=== PATIENT | female | born 1980 | race Caucasian/White ===

== ENCOUNTER 2020-11-01 16:28 | Emergency (ER) | payer MEDICAID, SELFPAY ==
--- NOTE | ~2020-11-01 | CT_ITS ---
EXAMINATION: CT FACIAL BONES WITH CONTRAST CLINICAL INFORMATION: Left facial swelling and trismus COMPARISON: None TECHNIQUE: 1.5 and thin axial and reformatted 1.5 minutes in sagittal coronal images of facial bones were obtained following IV heart mL of Omnipaque 350. This CT examination was performed using dose optimization techniques as appropriate, variously including the following: *Automated exposure control *Adjustment of mA and/or kV according to patient size (this includes techniques or standardized protocols for targeted exams where dose is matched to indication/reason for exam; i.e. extremities or head) *Use of iterative reconstruction technique DLP: 306 mGy-cm FINDINGS: There is mandibular left second molar periapical abscess extending into the gingival-buccal tissues and into the lower medial masseter muscle. . There is periapical cyst of mandibular left first molar. There is no acute maxillofacial fracture. The pterygoid plates are intact. The zygomatic arches are intact. The lamina papyracea are intact. The orbital rims are intact. There is mild mucoperiosteal thickening of right maxillary sinus. Rest of the paranasal sinuses and mastoid air cells are well-aerated. No air-fluid levels are seen. There is moderate deviation of the nasal septum to the right. The ostiomeatal complexes are clear. The lamina papyracea are intact. The ethmoid roofs are symmetric. The carotid canals are normally covered by bone. All periapical cyst is seen involving the left maxillary last molar tooth. There is significant dental filling producing beam hardening artifacts. The mastoid air cells and visualized middle ear cavities are well-aerated. The orbits are normal. The TMJs are unremarkable. The imaged portions of the brain demonstrate no acute abnormality. CT/CT facial bones w con IMPRESSION: Left periapical abscess second mandibular molar tooth extending into the gingivobuccal tissues and involving the left medial mass effect or muscle. There is a small Ovalle's cyst involving the last mandibular and maxillary. Molar tooth Chronic right maxillary sinus inflammatory changes.
[2020-11-01 16:32] VITALS: BP 157/94; PULSE 121; RESP 20; TEMP 36.9; O2SAT 98; BMI 23.9
[2020-11-01 18:21] VITALS: BP 138/82; PULSE 117; RESP 16; TEMP 36.4; O2SAT 100
--- NOTE | 2020-11-01 18:44 | ED_ITS ---
HPI - Dental/Oral General Chief complaint: Skin/Abscess/Foreign Body Stated complaint: abscess Source: patient Mode of arrival: ambulatory Limitations: language barrier History of Present Illness HPI Narrative: 40-year-old female with past medical history of hypertension, hyperlipidemia, hypothyroidism and anemia presents for a dentist office for severe inflammation to the lower left side of the face related to a dental abscess. The dentist report states that there is rubor, pain, and swelling extending to the left side of face and neck with trismus and limited opening of the mouth to 4-5 mm. Patient stated that this swelling started on Sunday and has gradually increased. She is able to swallow, does not have any throat pain, does not have any difficulty breathing and does not have any pain when moving her head or neck. She denies chest pain or pressure, palpitations, shortness of breath, abdominal pain, abdominal distention, dysuria, hematuria, fevers, chills, nausea, vomiting, diarrhea, constipation, weakness or fatigue. MD Complaint: tooth pain Teeth map: 1. Onset (ago): day(s) Duration: constant Severity: severe Exacerbating factors: chewing Context: history of dental caries and poor dental care Treatment prior to arrival: other (Dental visit) Related Data Home Medications Medication Instructions Recorded Confirmed ascorbic acid (vitamin C) 1 tab PO Q12H 11/01/20 11/01/20 ascorbic acid (vitamin C) [Vitamin 1 tab PO Q12H 11/01/20 11/01/20 C] atorvastatin 1 tab PO DAILY 11/01/20 11/01/20 cholecalciferol (vitamin D3) 2 tab PO DAILY 11/01/20 11/01/20 [Vitamin D3] ferrous sulfate 1 tab PO DAILY 11/01/20 11/01/20 glipizide 1 - 2 tab PO BID 11/01/20 11/01/20 levothyroxine 1 tab PO QAM 11/01/20 11/01/20 losartan 1 tab PO DAILY 11/01/20 11/01/20 metformin 1 tab PO BID 11/01/20 11/01/20 Previous Rx's Medication Instructions Recorded amoxicillin-pot clavulanate 1 tab PO Q12H 14 Days #28 tab 11/02/20 [Augmentin] ibuprofen 600 mg PO Q6H PRN #30 tab 11/02/20 Allergies Allergy/AdvReac Type Severity Reaction Status Date / Time No Known Allergies Allergy Verified 11/01/20 16:43 Review of Systems Review of Systems: Constitutional: No Fever, No Chills ENT/Mouth: No swallowing difficulty, no change in voice, positive dental pain, positive jaw pain, positive facial swelling Eyes: No Eye Pain, No Swelling Cardiovascular: No Chest Pain, No SOB Respiratory: No Cough, No Sputum, No Wheezing, No Smoke Exposure, No Dyspnea Gastrointestinal: No Nausea, No Vomiting, No Diarrhea Genitourinary: No Dysuria Musculoskeletal: No Myalgias Skin: No rash Neuro: No Weakness, No Numbness, No Headache Yes all other systems are reviewed and are negative [facility] Past Medical History Attestation statement: The following information was validated with the patient. Source: old records reviewed Social History Social History Advance Directives: No Advance Directives Information Provided: No Physical Exam Vital Signs: Vital Signs: Last Vital Signs Temp 98.4 F 11/02/20 00:00 Pulse 88 11/02/20 00:00 Resp 16 11/02/20 00:00 BP 140/83 H 11/02/20 00:00 Pulse Ox 98 11/02/20 00:00 Body Mass Index 23.9 Appearance: Alert. Oriented X3. Mild distress. Swelling to the left mandible radiating down to the sternocleidomastoid Eyes: Pupils equal, round and reactive to light. EOMI, sclera nonicteric ENT: Pharynx normal. tongue midline, no swelling, soft palate, pain to palpation on the left mandible. Neck: Normal inspection. Neck supple. No tracheal stridor, trachea midline CVS: Normal heart rate and rhythm. Pulses normal. Respiratory: No respiratory distress. Breath sounds normal. Abdomen: Soft and nontender. Skin: Skin warm and dry. Normal skin color. Normal skin turgor. Extremities: No lower extremity edema. Moves all extremities against resistance, gait while bowels well coordinated Neuro: No motor deficit. No sensory deficit. Cranial nerves 2-12 intact no focal neural deficits Course Course Course Narrative: 40-year-old female with past medical history of hyperlipidemia, hypertension, anemia, hypothyroidism presents with dental abscess from her dentist office. She presents with severe inflammation to the lower left side of the face with rubor dolor extending to the left side the neck with trismus and limited opening to about 4-5 mm. We will order CT scan of facial bones with contrast, start IV clindamycin, CBC Chem 7 and cultures. 9:[address] scan indicates Left periapical abscess second mandibular molar tooth extending into the gingivobuccal tissues and involving the left medial masseter muscle. 9:30 p.m. discussion with hospitalist regarding CT scan findings, hospitalist feels that this patient needs to be transferred as we do not have oral facial or dental surgery here. Discussed with Dr. valderrama and she was at bedside to evaluate patient. 9:40 p.m. discussion with [facility], [facility] does not have an oral facial or dental surgeon, refer to [facility]. 10:13 p.m. discussion with [facility], they will call out to their oral facial surgeon. 10:28 pm discussion with oral facial surgeon at [facility], Dr Shook. plan of care is to give 2nd dose of IV antibiotics, Unasyn is preferred, then have patient follow-up with outpatient oral surgeon. Patient does not have Tato's angina, has very little pain, no tongue swelling, able to swallow without difficulty. No indication of sepsis, CBC within normal limits, white count 9.8, lactic acid 0.9. Discussed with Dr. Gerber. Approximately 30 minutes after Unasyn, patient appears nontoxic, alert oriented x4, answering questions politely and appropriately utilizing Syriac, no focal neural deficits, cranial nerves 2-12 intact, lung sounds clear auscultation, no tracheal stridor, able to manage secretions, no difficulty swallowing. Will send home with p.o. antibiotics, she will follow-up with her dentist who will refer her to oral maxillary surgeon. She does understand that if symptoms persist or she has any difficulty breathing that she must present to the emergency department, preferably [facility] as they have oral facial surgeon. 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 Google translate utilized for discharge instructions. MDM - Dental/Oral MDM Narrative Medical decision making narrative: Abscess, Tato's angina, peritonsillar abscess Differential Diagnosis Differential diagnosis: Likely gingival abscess, dental caries, toothache and dental abscess Medical Records Attestation: I reviewed the patient's medical records. Lab Data Attestation: I reviewed the patient's lab results. Result diagrams: 11/01/20 18:50 11/01/20 18:50 Labs: Lab Results 11/01/20 11/01/20 11/01/20 Range/Units 18:50 18:50 18:50 WBC 9.8 (4.8-10.8) X10*3/uL RBC 3.92 L (4.20-5.50) X10*6/uL Hgb 12.0 (12.0-16.0) g/dl Hct 36.8 L (37-47) % MCV 93.9 (80-98) fL MCH 30.6 (27.0-33.0) pg MCHC 32.6 (31.0-35.0) g/dl RDW 11.9 (11.0-16.0) % Plt Count 186 (160-400) X10*3/uL MPV 13.9 H (9.4-12.3) fL Immature Gran % (Auto) Cancelled Neut % (Auto) Cancelled Lymph % (Auto) Cancelled [place] % (Auto) Cancelled Eos % (Auto) Cancelled Baso % (Auto) Cancelled Lymph # (Auto) Cancelled [place] # (Auto) Cancelled Eos # (Auto) Cancelled Baso # (Auto) Cancelled Abs Immat Gran (auto) Cancelled Absolute Neuts (auto) Cancelled Absolute Nucleated RBC 0.000 (0.0-0.012) X10*3/uL Nucleated RBC % (auto) 0.0 (0.0-0.2) /100WBC Neutrophils % (Manual) 78 H (45-73) % Band Neutrophils % 0 L (3-5) % Lymphocytes % (Manual) 17 L (20-40) % Monocytes % (Manual) 5 (2-11) % Abs Neuts (Manual) 7.6 (2.2-7.9) X10*3/uL Lymphocytes # (Manual) 1.7 (0.6-4.8) X10*3/uL Monocytes # (Manual) 0.5 (0.0-1.2) X10*3/uL Hypersegmented Neuts PRESENT Platelet Estimate NORMAL (NORMAL) Plt Morphology Comment NORM RBC Morphology NOTED [place] Cells 2+ Schistocytes 1+ Sodium 137 (135-145) mmol/L Potassium 4.3 (3.3-5.1) mmol/L Chloride 102 (96-108) mmol/L Carbon Dioxide 26 (22-29) mmol/L Anion Gap 13 (12-20) BUN 16 (9-16) mg/dL Creatinine 0.79 (0.5-1.4) mg/dL Estim Creat Clear Calc 76.7 Estimated GFR > 60 Random Glucose 129 H (60-115) mg/dL Lactic Acid 0.9 (0.5-2.0) mmol/L Calcium 9.4 (8.4-10.2) mg/dL Urine Test (NEGATIVE) 11/01/20 Range/Units 18:50 WBC (4.8-10.8) X10*3/uL RBC (4.20-5.50) X10*6/uL Hgb (12.0-16.0) g/dl Hct (37-47) % MCV (80-98) fL MCH (27.0-33.0) pg MCHC (31.0-35.0) g/dl RDW (11.0-16.0) % Plt Count (160-400) X10*3/uL MPV (9.4-12.3) fL Immature Gran % (Auto) Neut % (Auto) Lymph % (Auto) [place] % (Auto) Eos % (Auto) Baso % (Auto) Lymph # (Auto) [place] # (Auto) Eos # (Auto) Baso # (Auto) Abs Immat Gran (auto) Absolute Neuts (auto) Absolute Nucleated RBC (0.0-0.012) X10*3/uL Nucleated RBC % (auto) (0.0-0.2) /100WBC Neutrophils % (Manual) (45-73) % Band Neutrophils % (3-5) % Lymphocytes % (Manual) (20-40) % Monocytes % (Manual) (2-11) % Abs Neuts (Manual) (2.2-7.9) X10*3/uL Lymphocytes # (Manual) (0.6-4.8) X10*3/uL Monocytes # (Manual) (0.0-1.2) X10*3/uL Hypersegmented Neuts Platelet Estimate (NORMAL) Plt Morphology Comment RBC Morphology [place] Cells Schistocytes Sodium (135-145) mmol/L Potassium (3.3-5.1) mmol/L Chloride (96-108) mmol/L Carbon Dioxide (22-29) mmol/L Anion Gap (12-20) BUN (9-16) mg/dL Creatinine (0.5-1.4) mg/dL Estim Creat Clear Calc Estimated GFR Random Glucose (60-115) mg/dL Lactic Acid (0.5-2.0) mmol/L Calcium (8.4-10.2) mg/dL Urine Test NEGATIVE (NEGATIVE) Imaging Data CT facial bones: Attestation: I personally reviewed and interpreted this imaging study as follows: Radiologist's impression: EXAMINATION: CT FACIAL BONES WITH CONTRAST CLINICAL INFORMATION: Left facial swelling and trismus COMPARISON: None TECHNIQUE: 1.5 and thin axial and reformatted 1.5 minutes in sagittal coronal images of facial bones were obtained following IV heart mL of Omnipaque 350. This CT examination was performed using dose optimization techniques as appropriate, variously including the following: *Automated exposure control *Adjustment of mA and/or kV according to patient size (this includes techniques or standardized protocols for targeted exams where dose is matched to indication/reason for exam; i.e. extremities or head) *Use of iterative reconstruction technique DLP: 306 mGy-cm FINDINGS: There is mandibular left second molar periapical abscess extending into the gingival-buccal tissues and into the lower medial masseter muscle. . There is periapical cyst of mandibular left first molar. There is no acute maxillofacial fracture. The pterygoid plates are intact. The zygomatic arches are intact. The lamina papyracea are intact. The orbital rims are intact. There is mild mucoperiosteal thickening of right maxillary sinus. Rest of the paranasal sinuses and mastoid air cells are well-aerated. No air-fluid levels are seen. There is moderate deviation of the nasal septum to the right. The ostiomeatal complexes are clear. The lamina papyracea are intact. The ethmoid roofs are symmetric. The carotid canals are normally covered by bone. All periapical cyst is seen involving the left maxillary last molar tooth. There is significant dental filling producing beam hardening artifacts. The mastoid air cells and visualized middle ear cavities are well-aerated. The orbits are normal. The TMJs are unremarkable. The imaged portions of the brain demonstrate no acute abnormality. CT/CT facial bones w con IMPRESSION: Left periapical abscess second mandibular molar tooth extending into the gingivobuccal tissues and involving the left medial mass effect or muscle. There is a small Ovalle's cyst involving the last mandibular and maxillary. Molar tooth Chronic right maxillary sinus inflammatory changes. Critical Care Time Critical Care Time Critical Care Time: Yes Total Critical Care Time: 120 Attestation: I have personally provided critical care time exclusive of time spent on separately billable procedures. Time includes review of laboratory data, radiology results, discussion with consultants, and monitoring for potential decompensation. Interventions were performed as documented. Discharge Plan Discharge Clinical Impression: Abscess, dental Abscess of skin or subcutaneous tissue Qualifiers: Site of cutaneous abscess: neck Qualified Code(s): L02.11 - Cutaneous abscess of neck Patient Disposition: Home, Self-Care Instructions: Dental Abscess (ED) Additional Instructions: Usted fue evaluado en el departamento de emergencias para martinez inflamaci?n grave en la parte inferior izquierda de la diana relacionada con un absceso dental. Levin dentista lo remite al departamento de emergencias. Le dimos clindamicina intravenosa y IV Unasyn por esta infecci?n. Debe continuar tomando antibi?ticos en casa, prescrito Augmentin 1 comprimido cada 12 horas april los pr?ximos 14 d?as. Debes hacer un seguimiento con levni dentista ma?pepe. Debes lisa a un ciru gudelia oral. Discutimos levin bob con un cirujano facial oral en [facility] en [facility]. La direcci?n es [address] [facility]. Si tiene alg?n evento relacionado april toda la noche, no puede tragar, tiene dificultad para respirar, tiene fiebres o escalofr?os, llame al 911 y busque atenci?n m?dica emergente. El cirujano con el que hablamos en [facility] fue el Por favor, tome Tylenol y Motrin seg?n sea necesario para el manejo del dolor. Jonathan por elegir casey departamento de emergencias para levin evaluaci?n. Por favor, yasmin un seguimiento con el m?dico de atenci?n primaria seg?n sea necesario. Regrese al servicio de emergencias para cualquier s?ntoma nuevo, preocupante o que empeore. You were evaluated in the emergency department for severe inflammation to the left lower side of the face related to a dental abscess. Your dentist refer you to the emergency department. We gave you IV clindamycin and IV Unasyn for this infection. You must continue to take antibiotics at home, prescribed Augmentin 1 tablet every 12 hours for the next 14 days. You must follow-up with her dentist tomorrow. You must see an oral surgeon. We discussed your case with an oral facial surgeon at [facility] in [facility]. The address is [address] [place] [address]. If you have any concerning events throughout the evening, you are unable to swallow, have difficulty breathing, have fevers or chills please call 911 and seek emergent medical attention. The surgeon we spoke to at [facility] was Dr. Shook. Please take Tylenol and Motrin as needed for pain management. Thank you for choosing this emergency department for evaluation. Please follow-up with primary care physician as needed. Return to the emergency department for any new, concerning, or worsening symptoms. Prescriptions: New amoxicillin-pot clavulanate [Augmentin] 875-125 mg tablet 1 tab PO Q12H 14 Days Qty: 28 RF: 0 ibuprofen 600 mg tablet 600 mg PO Q6H PRN (Reason: pain) Qty: 30 RF: 0 No Action atorvastatin 10 mg tablet 1 tab PO DAILY RF: 0 ascorbic acid (vitamin C) [Vitamin C] 250 mg tablet 1 tab PO Q12H RF: 0 ascorbic acid (vitamin C) 250 mg tablet 1 tab PO Q12H RF: 0 levothyroxine 50 mcg tablet 1 tab PO QAM RF: 0 ferrous sulfate 325 mg (65 mg iron) tablet 1 tab PO DAILY RF: 0 losartan 100 mg tablet 1 tab PO DAILY RF: 0 cholecalciferol (vitamin D3) [Vitamin D3] 10 mcg (400 unit) tablet 2 tab PO DAILY RF: 0 glipizide 5 mg tablet 1 - 2 tab PO BID RF: 0 metformin 750 mg tablet extended release 24 hr 1 tab PO BID RF: 0
[2020-11-01 19:04] LABS: Mean Corpuscular Volume 93.9 fL (80-98); Red Cell Distribution Width 11.9 % (11.0-16.0)
[2020-11-01 19:06] LABS: Hematocrit 36.8 % (37-47); Mean Corpuscular HGB Conc 32.6 g/dl (31.0-35.0); Mean Corpuscular Hemoglobin 30.6 pg (27.0-33.0); Mean Platelet Volume 13.9 fL (9.4-12.3); Red Blood Count 3.92 X10*6/uL (4.20-5.50)
[2020-11-01 19:18] LABS: PLT ABN DIST 1; WBC ABN SCTR FOR CBC 1
[2020-11-01 19:30] LABS: Lactic Acid 0.9 mmol/L (0.5-2.0)
[2020-11-01 19:33] LABS: Anion Gap 13 (12-20); Blood Urea Nitrogen 16 mg/dL (9-16); Calcium 9.4 mg/dL (8.4-10.2); Carbon Dioxide 26 mmol/L (22-29); Chloride 102 mmol/L (96-108); Creatinine Clr Calc Pharmacy 76.7; Estimated Glomerular Filt Rate > 60; Glucose Random 129 mg/dL (60-115); Potassium 4.3 mmol/L (3.3-5.1); Sodium 137 mmol/L (135-145)
[2020-11-01 19:36] LABS: Band Neutrophils Percent 0 % (3-5); Lymphocytes Percent Manual 17 % (20-40); Monocytes Percent Manual 5 % (2-11); Neutrophils Percent Manual 78 % (45-73)
[2020-11-01] MEDS: Ketorolac Tromethamine 30 MG/ML VIAL IVPUSH (19:41)
[2020-11-01 19:42] LABS: Platelet Estimate NORMAL (NORMAL)
[2020-11-01] MEDS: Clindamycin Phosphate/D5W 600 MG/50 ML PIGGYBACK 100 MG IV (19:42)
[2020-11-01 19:43] LABS: Hypersegmented Neutrophils PRESENT
[2020-11-01] MEDS: 0.9 % Sodium Chloride 1,000 ML 999 ML IVCONT (19:43)
[2020-11-01 19:44] LABS: RBC Morphology NOTED
[2020-11-01 19:53] LABS: Burr Cells 2+
[2020-11-01 19:54] LABS: Platelet Morphology Comment NORM; Schistocytes 1+
[2020-11-01 19:57] LABS: Lymphocytes Absolute Manual 1.7 X10*3/uL (0.6-4.8); Monocytes Absolute Manual 0.5 X10*3/uL (0.0-1.2); Neutrophils Absolute Manual 7.6 X10*3/uL (2.2-7.9); Platelet Count 186 X10*3/uL (160-400); White Blood Count 9.8 X10*3/uL (4.8-10.8)
[2020-11-01 20:06] LABS: UPreg QC Valid YES; Urine Pregnancy NEGATIVE (NEGATIVE)
[2020-11-01 21:31] VITALS: BP 144/78; PULSE 93; RESP 16; TEMP 36.6; O2SAT 99
--- NOTE | 2020-11-01 22:04 | PC.NURSE ---
STRAP MACHINE OPERATOR AUTOMATIC NINO IN TO TALK WITH PATIENT ABOUT TRANSFERING HER TO [facility] FOR OMF. PT HAS DENTAL ABSCESS THAT EXTENDS INTO MUSCLE. AIR WAY PATENT. NO LUDWIGS ANGINA. PT AGREEABLE.
[2020-11-01] MEDS: Ampicillin Sodium/Sulbactam Na 3 GM in 0.9 % Sodium Chloride 100 ML IV (23:27)
[2020-11-02] VITALS: BP 140/83; PULSE 88; RESP 16; TEMP 36.9; O2SAT 98
== END 2020-11-02 01:05 | disposition home or self-care (01) ==
PROVIDERS: Nurse Practitioner Family; Emergency Provider Emergency Medicine; PCP Nurse Practitioner Family
DX: K04.6 Periapical abscess with sinus (principal); L02.11 Cutaneous abscess of neck; I10 Essential (primary) hypertension; E78.5 Hyperlipidemia, unspecified; E11.9 Type 2 diabetes mellitus without complications; Z79.899 Other long term (current) drug therapy; Z79.84 Long term (current) use of oral hypoglycemic drugs
CPT/HCPCS: 36415; 70487; 80048; 81025; 83605; 85007; 85027; 87040; 96361; 96365; 96375; 99284; 99291; 99292; J0295; J1885; Q9967

== ENCOUNTER 2020-12-20 14:04 | Outpatient (REF) | payer MEDICAID, SELFPAY | END 2020-12-20 14:05 | disposition home or self-care (01) | LOC: HO.LAB 14:04 | PROVIDERS: Visit Provider Internal Medicine | DX: Z20.822 Contact with and (suspected) exposure to COVID-19 (principal) | CPT/HCPCS: C9803; U0003; U0005 ==

== ENCOUNTER 2021-04-22 09:31 | Outpatient (REF) | payer MEDICAID, SELFPAY ==
[2021-04-22 10:06] LABS: COVID-19 Test Negative (Negative)
== END 2021-04-22 09:32 | disposition home or self-care (01) ==
LOC: HO.LAB 09:31
PROVIDERS: Visit Provider Internal Medicine
DX: Z20.822 Contact with and (suspected) exposure to COVID-19 (principal)
CPT/HCPCS: 36415; 87635; C9803

== ENCOUNTER 2021-08-31 11:07 | Outpatient (REF) | payer MEDICAID, SELFPAY ==
[2021-08-31 12:19] LABS: Binax Now Covid-19 Ag Negative (Negative)
[2021-08-31 12:20] LABS: Binax Internal Control QC Valid
== END 2021-08-31 11:08 | disposition home or self-care (01) ==
LOC: HO.LAB 11:07
PROVIDERS: Visit Provider Internal Medicine
DX: Z20.822 Contact with and (suspected) exposure to COVID-19 (principal)
CPT/HCPCS: C9803

== ENCOUNTER 2022-12-27 08:42 | Outpatient (REF) | payer MEDICAID, SELFPAY ==
--- NOTE | ~2022-12-27 | MM_ITS ---
EXAMINATION: MM SCREENING DIGITAL BREAST TOMOSYNTHESIS, BILATERAL CLINICAL INFORMATION: Screening. Asymptomatic. No prior breast imaging. Age 32. No known family history breast cancer. The lifetime risk of breast cancer based on the Tyrer-Cuzick Model is 7%. COMPARISON: None (current study represents initial baseline exam). TECHNIQUE: Digital breast tomosynthesis is performed in both the craniocaudal and mediolateral oblique views along with computer-aided detection (CAD). Synthesized 2D images are generated from the tomosynthesis. FINDINGS: The breasts are heterogeneously dense, which may obscure small masses (ACR BI-RADS breast composition Category c). The left breast has a 2.2 cm smooth circumscribed mass with partly obscured margins mid upper outer quadrant, possibly a cyst. Patient will be recalled for targeted ultrasound. The remainder of the breasts show no significant mass or architectural abnormality or abnormal calcifications. The axilla and skin contours are unremarkable. MM/MM tomosynthesis screening BI IMPRESSION: Left: -Smooth mass 2.2 cm mid upper outer quadrant, possibly a cyst. Right: -No mammographic evidence of malignancy. ASSESSMENT: BI-RADS 0: Incomplete - Need Additional Imaging Evaluation RECOMMENDATION: 1. Targeted ultrasound left breast. 2. Radiology department staff will contact the patient for additional imaging. This patient's information was entered into a reminder system with a target due date for their next mammogram.
== END 2022-12-27 08:43 | disposition home or self-care (01) ==
LOC: HO.MAMMO 08:42
PROVIDERS: PCP Nurse Practitioner; Visit Provider Advanced Practice Midwife
DX: Z12.31 Encounter for screening mammogram for malignant neoplasm of breast (principal)
CPT/HCPCS: 77063; 77067

== ENCOUNTER 2023-01-02 10:50 | Outpatient (REF) | payer MEDICAID, SELFPAY ==
--- NOTE | ~2023-01-02 | US_ITS ---
EXAMINATION: US DIAGNOSTIC ULTRASOUND BREAST, LEFT CLINICAL INFORMATION: Recall from baseline screening for 2.2 cm circumscribed mass with partly obscured margins mid upper outer left breast. TC score 7%. COMPARISON: Baseline mammography 12/27/2022. TECHNIQUE: Ultrasound left breast is performed using grayscale imaging and color Doppler without and with harmonics. The area for recall is evaluated. In addition at time of imaging, patient notes palpable areas lower inner left breast which are also interrogated with ultrasound. FINDINGS: The area for recall demonstrates a heterogeneous solid smooth 2 cm mass 2:00 position 6 cm from nipple. There are some scattered internal color flow vascularity. Statistically, this most likely represents a fibroadenoma. Additional imaging lower inner left breast in area of patient's palpable concern shows no ultrasound correlate for recent mammographic correlate. Results are discussed with the patient at time of visit, using an range examiner. Ultrasound guided needle biopsy is suggested to confirm fibroadenoma. Patient is in agreement. Results and recommendation called to medical technologist generalist (Mague) for Dr. Meehan on 01/02/2023. US/US breast LT limited IMPRESSION: -Solid mass upper outer left breast 2 cm, likely fibroadenoma. ASSESSMENT: BI-RADS 4: Suspicious (subcategory 4A: Low suspicion for malignancy) RECOMMENDATION: Ultrasound-guided core biopsy left breast mass. This patient's information was entered into a reminder system with a target due date for their next mammogram.
== END 2023-01-02 10:51 | disposition home or self-care (01) ==
LOC: HO.MAMMO 10:50
PROVIDERS: Visit Provider Advanced Practice Midwife
DX: N63.21 Unspecified lump in the left breast, upper outer quadrant (principal)
CPT/HCPCS: 76642

== ENCOUNTER 2023-01-04 09:03 | Outpatient (REF) | payer MEDICAID, SELFPAY ==
--- NOTE | ~2023-01-04 | MM_ITS ---
EXAMINATION: ULTRASOUND GUIDED CORE BIOPSY BREAST, LEFT POST PROCEDURE DIGITAL MAMMOGRAM, LEFT CLINICAL INFORMATION: Circumscribed 2 cm mass mid upper outer left breast noted at baseline exam, likely fibroadenoma. COMPARISON: Mammography 12/27/2022, targeted left breast ultrasound 01/02/2023. FINDINGS: Proper informed consent is obtained from the patient after discussion of the procedure, potential risks and complications, and alternatives. Patient was given an opportunity for questions. The patient appeared to understand. The patient consented to the procedure and signed the consent form. Hospital provided chief unit forester assisted for the consent and throughout the procedure. GUIDANCE: Ultrasound-guided; aseptic technique. LESION: Solid mass mid upper outer left breast, 2 cm, likely fibroadenoma. APPROACH: Lateral medial. ANESTHESIA: 16 mL 1% lidocaine. DERMATOTOMY: Single skin robert dermatotomy performed. NEEDLE: 14-gauge Achieve core biopsy device with 13.5-gauge co-axial guide needle. CORES: 5. CLIP: HydroMARK; shape: open coil. POST PROCEDURE UNILATERAL DIGITAL MAMMOGRAM: The post biopsy mammogram is performed in separate room using separate digital mammography equipment from the biopsy procedure. CC and ML views are obtained. The breasts are heterogeneously dense, which may obscure small masses (breast composition category: c). The clip marker is in position, overlying the mass on both views. No gross hematoma. The patient tolerated the procedure well. No immediate complications. Home instructions reviewed with the patient. Final pathology results are pending. MM/MM diagnostic mammo unilat LT IMPRESSION: 1. Status post ultrasound-guided core biopsy left breast. 2. Clip placed: HydroMARK; shape: open coil. 3. Pathology pending. An addendum report will be issued.
[2023-01-04] MEDS: Lidocaine HCl 1 % 20 ML VIAL 9 ML SUBCUT (11:45)
[2023-01-04] MEDS: Sodium Bicarbonate 8.4% 50 MEQ/50 ML VIAL SUBCUT (11:46)
== END 2023-01-04 09:04 | disposition home or self-care (01) ==
LOC: HO.MAMMO 09:03
PROVIDERS: PCP Registered Nurse; Visit Provider Surgery
DX: N63.21 Unspecified lump in the left breast, upper outer quadrant (principal); Z79.899 Other long term (current) drug therapy
CPT/HCPCS: 19083; 77062; 77065; 88305; 99202; A4648

== ENCOUNTER → 2023-01-10 10:17 | Outpatient (BNVA) | payer MEDICAID, SELFPAY | PROVIDERS: PCP Registered Nurse; Referring Provider Registered Nurse; Visit Provider Surgery | DX: N63.20 Unspecified lump in the left breast, unspecified quadrant (principal); D24.2 Benign neoplasm of left breast | CPT/HCPCS: 99212 ==

== ENCOUNTER 2023-07-18 15:05 | Outpatient (REF) | payer MEDICAID, SELFPAY ==
[2023-07-18 16:50] LABS: Anion Gap 13 (12-20); Blood Urea Nitrogen 13 mg/dL (9-16); Calcium 10.2 mg/dL (8.4-10.2); Carbon Dioxide 26 mmol/L (22-29); Chloride 100 mmol/L (96-108); Estimated Glomerular Filt Rate > 60; Glucose Random 253 mg/dL (60-115); Potassium 3.8 mmol/L (3.3-5.1); Sodium 135 mmol/L (135-145)
[2023-07-18 17:01] LABS: TSH reflex Free T4 1.57 uIU/mL (0.32-4.0)
== END 2023-07-18 15:06 | disposition home or self-care (01) ==
LOC: HO.HHCL 15:05
PROVIDERS: Visit Provider Internal Medicine Geriatric Medicine
DX: I10 Essential (primary) hypertension (principal); R60.0 Localized edema; F41.8 Other specified anxiety disorders; E11.69 Type 2 diabetes mellitus with other specified complication
CPT/HCPCS: 36415; 80048; 84443

== ENCOUNTER 2024-01-02 08:37 | Outpatient (REF) | payer MEDICAID, SELFPAY ==
--- NOTE | ~2024-01-02 | MM_ITS ---
EXAMINATION: MM SCREENING DIGITAL BREAST TOMOSYNTHESIS, BILATERAL CLINICAL INFORMATION: Screening. Asymptomatic. COMPARISON: Mammography: This study is compared with prior exams dating back to 2022. TECHNIQUE: Digital breast tomosynthesis is performed in both the craniocaudal and mediolateral oblique views along with computer-aided detection (CAD). Synthesized 2D images are generated from the tomosynthesis. FINDINGS: The breasts are heterogeneously dense, which may obscure small masses (ACR BI-RADS breast composition Category c). There are no significant masses, abnormal calcifications, or other abnormalities. There is a tissue marker in the left breast from prior benign percutaneous biopsy. It is associated with a mammographically benign mass. There are coarse, benign calcifications in the medial aspect of the right breast. Few benign calcifications are present in the medial aspect of the right breast. MM/MM tomosynthesis screening BI IMPRESSION: No mammographic evidence of malignancy. ASSESSMENT: BI-RADS BI-RADS 2 - Benign Findings RECOMMENDATION: Routine annual mammography screening. 1 year F/U This examination should not preclude the clinical evaluation of a suspicious palpable abnormality. This patient's information was entered into a reminder system with a target due date for their next mammogram.
== END 2024-01-02 08:38 | disposition home or self-care (01) ==
LOC: HO.MAMMO 08:37
PROVIDERS: PCP Internal Medicine; Visit Provider Nurse Practitioner
DX: Z12.31 Encounter for screening mammogram for malignant neoplasm of breast (principal)
CPT/HCPCS: 77063; 77067

== ENCOUNTER → 2024-01-02 09:00 | Outpatient (BNV) | payer MEDICAID, SELFPAY | PROVIDERS: PCP Internal Medicine; Visit Provider Radiology Diagnostic Radiology | DX: Z12.31 Encounter for screening mammogram for malignant neoplasm of breast (principal) | CPT/HCPCS: 77063; 77067 ==

== ENCOUNTER 2024-03-14 08:25 | Outpatient (REF) | payer MEDICAID, SELFPAY ==
[2024-03-14 11:17] LABS: MANUAL DIFF FLAG NO
[2024-03-14 11:38] LABS: Basophils Percent Auto 0.5 % (0-2); Eosinophils Percent Auto 0.5 % (0-4); Hematocrit 38.2 % (37.0-47.0); Hemoglobin 12.6 g/dl (12.0-16.0); Imm Gran Abs Auto 0.02 X10*3/uL (0.00-0.03); Imm Gran Pct Auto 0.3 % (0.0-0.4); Lymphocytes Absolute Auto 1.3 X10*3/uL (1.2-4.9); Lymphocytes Percent Auto 22.7 % (20-40); Mean Corpuscular Hemoglobin 30.7 pg (27.0-33.0); Mean Corpuscular Volume 92.9 fL (80.0-98.0); Mean Platelet Volume 13.5 fL (9.4-12.3); Monocytes Absolute Auto 0.4 X10*3/uL (0.1-1.2); Monocytes Percent Auto 6.1 % (2-11); Neutrophils Absolute Auto 4.1 x10*3/uL (2.0-8.3); Neutrophils Percent Auto 69.9 % (45-73); Platelet Count 169 X10*3/uL (160-400); Red Blood Count 4.11 X10*6/uL (4.20-5.50); Red Cell Distribution Width 11.9 % (11.0-16.0); White Blood Count 5.9 X10*3/uL (4.8-10.8)
[2024-03-14 12:07] LABS: Alanine Aminotransferase 16 U/L (0-31); Albumin Level 4.1 g/dL (3.5-5.0); Alkaline Phosphatase 54 U/L (39-117); Anion Gap 13 (12-20); Aspartate Amino Transferase 16 U/L (5-31); Bilirubin Direct < 0.2 mg/dL (0.0-0.5); Bilirubin Total 0.2 mg/dL (0.0-1.0); Blood Urea Nitrogen 12 mg/dL (9-16); Calcium 9.6 mg/dL (8.4-10.2); Carbon Dioxide 23 mmol/L (22-29); Chloride 105 mmol/L (96-108); Cholesterol 146 mg/dL (<200); Estimated Glomerular Filt Rate > 60; Glucose Random 112 mg/dL (60-115); HDL Cholesterol 51 mg/dL (>40); LDL Cholesterol Calculated 86 mg/dL (<100); Sodium 137 mmol/L (135-145); Triglycerides 49 mg/dL (<150)
[2024-03-14 12:22] LABS: ~HepC Num1 0.36 S/CO (0.00-0.79); ~Hepatitis C Antibody Nonreactive (Nonreactive)
[2024-03-14 12:25] LABS: TSH reflex Free T4 2.65 uIU/mL (0.32-4.0)
[2024-03-18 18:47] LABS: HIV RNA PCR Qn Copies Not Detected Copies/mL; HIV RNA PCR Qn Log Copies Not Detected Log cps/mL
== END 2024-03-14 08:26 | disposition home or self-care (01) ==
LOC: HO.HHCL 08:25
PROVIDERS: Internal Medicine Geriatric Medicine; Visit Provider Internal Medicine
DX: I10 Essential (primary) hypertension (principal); E11.69 Type 2 diabetes mellitus with other specified complication; R00.0 Tachycardia, unspecified; F41.8 Other specified anxiety disorders
CPT/HCPCS: 36415; 80048; 80061; 80076; 84443; 85025; 86803; 87536; 87900

== ENCOUNTER 2024-12-31 10:19 | Outpatient (REF) | payer MEDICAID, SELFPAY ==
--- NOTE | ~2024-12-31 | XR_ITS ---
EXAMINATION: XR THUMB, RIGHT CLINICAL INFORMATION: R thumb pain, decreased ROM x 3 days COMPARISON: None available. TECHNIQUE: Three views of the right thumb. FINDINGS: The bones and soft tissues are normal. No fracture. Alignment is anatomic. Joint spaces are maintained. Of incidental note, there are suspected periarticular erosions in the third digit DIP joint, and fifth digit PIP joint. XR/XR finger RT min 2V IMPRESSION: 1. Normal abdominal radiographs. 2. Suspected periarticular erosions in the third digit DIP joint, and fifth digit PIP joint. This may suggest inflammatory arthropathy. Electronically signed by: Juanpablo Brown MD 12/31/2024 11:08 AM EDT
--- OUTSIDE RECORDS SUMMARY | 2024-12-31 11:19 | XMS_ITS | Encounter Summary ---
Author Organization [employer] Address [address] [place] [address] Care Team Providers Care Central Sterile Technician Name Role Phone Kristin Zavaleta MD Primary Care Provide r Marisol Helton PharmD Unavailable [phone] Encounter Details Date Type Department Care Team (Latest Contact Info) Description 12/26/2024 Travel Social History Tobacco Use Types Packs/Day Years Used Date Smoking Tobacco: Never Passive Smoke Exposure: Never Smokeless Tobacco: Never Housing Stability Answer Date Recorded What is your housing situation today? I have brenden herrera 03/14/[address] you li ve. Do you have problems with any of the following? None of the above 03/14/2024 Food Insecurity Answer Date Recorded Within the past 12 months, y ou worried that your food would run out before you got money to buy more: Sometimes True 2023 Within the past 12 months,th e food you bought just didn't last and you didn't have enough money to get more: Sometimes True 03/14/2024 Transportation Answer Date Recorded In the past 12 months, has l ack of transportation kept you from medical appts, meetings, work or from getting things needed for daily living? No 03/14/2024 Utilities Answer Date Recorded In the past 12 months, has t he electric, gas, oil or water company threatened to shut off services in your home? No 03/14/2024 Internet Access Answer Date Recorded Internet Access Q1 Yes 04/21/2024 Internet Access Q2 Not on file 04/21/2024 Comments No Sex and Gender Information Value Date Recorded Sex Assigned at Female 06/19/2022 10:36 AM EDT Legal Sex Female 10:36 AM EDT Gender Identity Female 06/19/2022 10:36 AM EDT Sexual Orientation Straight 06/19/2022 10 :36 AM EDT documented as of this encounter Plan of Treatment Upcoming Encounters Date Type Department Care Team (Late st Contact Info) Description 01/23/2025 9:00 AM EDT Medication Management [facility] [address] [place] [phone] Piers-Amy Rondonsa, PharmD [address] [place] [phone] 02/04/2025 10:30 AM EDT Office Visit [facility] [address] [place] [phone] Kristin Zavaleta MD [address] [place] [phone] documented as of this encounter Goals Goal Patient Goal Type Associated Problems Recent Progress Patient-Stated? Author Record your blood pressure once per day Blood Pressure No Piers-Gambl e, Marisol, PharmD Blood Pressure < 140/90 Blood Pressure 140/89(2024 9:29 AM EDT) No Piers-Gambl e, Marisol, PharmD Take your medication every day Lifestyle No Piers-Gambl e, Marisol, PharmD Hemoglobin A1c < 7 Result Component 8(12/26/2024 9:18 AM EDT) No Piers-Gambl e, Marisol, PharmD documented as of this encounter Visit Diagnoses Not on filedocumented in this encounter Care Teams Central Sterile Technician Relationship Specialty Start Date End Date Kristin Zavaleta MD [address] [place] [address] [phone] PCP - General Internal Medicine 09/24/23 Geremiass-Amy Rondonsa, PharmD [address] [place] [address] [phone] Pharmacist Internal Medicine 03/03/24 documented as of this encounter
--- OUTSIDE RECORDS SUMMARY | 2024-12-31 11:19 | XMS_ITS | Encounter Summary ---
Author Organization [employer] Address [address] [place] [address] Care Team Providers Care Play Reader Name Role Phone Kristin Zavaleta MD Primary Care Provide r Marisol Helton PharmD Unavailable Encounter Details Date Type Department Care Team (Late st Contact Info) Description 12/31/2024 9:40 AM EDT Office Visit [facility] [address] [place] [address] Thumb pain, right (Primary Dx) Social History Tobacco Use Types Packs/Day Years [...] AM EDT documented as of this encounter Last Filed Vital Signs Vital Sign Reading Time Taken Comments Blood Pressure 140/89 12/31/2024 9:29 AM EDT Pulse 92 12/31/2024 9:29 AM EDT Temperature 36.2 ??C (97.1 ??F) 12/31/2024 9:29 AM ED T Respiratory Rate 20 12/31/2024 9:29 AM EDT Oxygen Saturation 98% 12/31/2024 9:29 AM EDT Inhaled Oxygen Concentration - - Weight 65.4 kg (144 lb 4 oz) 12/31/2024 9:29 AM EDT Height 160 cm (5' 3 ) 12/31/2024 9:29 AM EDT Body Mass Index 25.55 12/31/2024 9:29 AM EDT documented in this encounter Plan of Treatment Upcoming Encounters Date Type Department Care Team (Late st Contact Info) Description 01/23/2025 9:00 AM EDT Medication Management [facility] [address] [place] [phone] Marisol Helton PharmD [address] [place] [phone] 02/04/2025 10:30 AM EDT Office Visit [facility] [address] [place] [phone] Kristin Zavaleta MD [address] [place] [phone] documented as of this encounter Goals Goal Patient Goal Type Associated Problems Recent Progress Patient-Stated? Author Record your blood pressure once per day Blood Pressure No Marisol Garland PharmD Blood Pressure < 140/90 Blood Pressure 140/89(2024 9:29 AM EDT) No Piers-Gambl e, Marisol, PharmD Take your medication every day Lifestyle No Piers-Gambl e, Marisol, PharmD Hemoglobin A1c < 7 Result Component 8(12/26/2024 9:18 AM EDT) No Piers-Gambl e, Marisol, PharmD documented as of this encounter Procedures Procedure Name Priority Date/Time Associated Diagnosis Comments XR FINGERS 2+ VIEWS RIGHT STAT 12/31/2024 10:20 AM EDT Thumb pain, right documented in this encounter Results * XR Fingers 2+ Views Right (12/31/2024 10:20 AM EDT) Anatomical Region Laterality Modality Upper Extremities, Fingers Right Radio graphic Imaging 12/31/2024 10:2 0 AM EDT Narrative 12/31/2024 11:11 AM EDT ?[facility] ?[address] ?[place] [address] ?XRay Report ? Signed ? Patient: Rosey Osborne E ?M ?? R#: [id number] ? : 1980 ?Acct:[id number] ? Age/Sex: 44 / F ?ADM Date: 12/31/24 ? Loc: HO.HHCX ? Attending Dr: Leticia Salazar DO ? Ordering Physician: Leticia Salazar DO ?? Date of Service: 12/31/24 ?? Procedure(s): XR finger RT min 2V ?? Accession Number(s): [id number] ? cc: Leticia Salazar DO ? EXAMINATION: ?? XR THUMB, RIGHT ? CLINICAL INFORMATION: ?? R thumb pain, decreased ROM x 3 days ? COMPARISON: ?? None available. ? TECHNIQUE: ?? Three views of the right thumb. ? FINDINGS: ?? The bones and soft tissues are normal. No fracture. Alignment is ?? anatomic. Joint spaces are maintained. ? Of incidental note, there are suspected periarticular erosions in the ?? third digit DIP joint, and fifth digit PIP joint. ? XR/XR finger RT min 2V ?? IMPRESSION: ? 1. Normal abdominal radiographs. ?? 2. Suspected periarticular erosions in the third digit DIP joint, and ?? fifth digit PIP joint. This may suggest inflammatory arthropathy. ? Electronically signed by: ??Juanpablo Brown MD ??12/31/2024 11:08 AM EDT RP ? Dictated By: ?Juanpablo Brown MD ? Signed By: ?<Electronically signed by Juanpablo Brown MD in OV> ?12/31/24 1108 ? DD/ 1020 ? TD/TT: 12/31/24 1025 ? Oven Baker: ? Procedure Note Marciter, Image - 12/31/[address] [address] XRay Report Signed Patient: Rosey Osborne R#: [id number] : 1980Acct:[id number] Age/Sex: 44 / FADM Date: 12/31/24 Loc: HO.HHCX Attending Dr: Leticia Salazar DO Ordering Physician: Leticia Salazar DO Date of Service: 12/31/24 Procedure(s): XR finger RT min 2V Accession Number(s): [id number] cc: Leticia Salazar DO EXAMINATION: XR THUMB, RIGHT CLINICAL INFORMATION: R thumb pain, decreased ROM x 3 days COMPARISON: None available. TECHNIQUE: Three views of the right thumb. FINDINGS: The bones and soft tissues are normal. No fracture. Alignment is anatomic. Joint spaces are maintained. Of incidental note, there are suspected periarticular erosions in the third digit DIP joint, and fifth digit PIP joint. XR/XR finger RT min 2V IMPRESSION: 1. Normal abdominal radiographs. 2. Suspected periarticular erosions in the third digit DIP joint, and fifth digit PIP joint. This may suggest inflammatory arthropathy. Electronically signed by: Juanpablo Brown MD 12/31/2024 11:08 AM EDT Dictated By: Juanpablo Brown MD Signed By: <Electronically signed by Juanpablo Brown MD in OV> 12/31/24 1108 DD/ 1020 TD/TT: 12/31/24 1025 Oven Baker: us Leticia Salazar DO IMG XR PROCEDURES Final Resu lt documented in this encounter Visit Diagnoses Diagnosis Thumb pain, right- Primary documented in this encounter Care Teams Play Reader Relationship Specialty Start Date End Date Kristin Zavaleta MD [address] [place] [address] PCP - General Internal Medicine 09/24/23 Marisol Helton PharmD [address] [place] [address] Pharmacist Internal Medicine 03/03/24 documented as of this encounter
--- OUTSIDE RECORDS SUMMARY | 2024-12-31 11:19 | XMS_ITS | Encounter Summary ---
Author Organization [employer] Address [address] [place] [address] Care Team Providers Care Clinical Research Management Associate Name Role Phone Aria Cárdenas MOCK UP BUILDER Primary Care Provider [phone]- [phone] Kristin Zavaleta MD Primary Care Provide r Marisol Helton PharmD Unavailable [phone]- [phone] Encounter Details Date Type Department Care Team (Latest Contact Info) Description 12/22/2020 Abstract [facility] Dental, Provider, DDS Social History Tobacco Use Types Packs/Day Years Used Date Smoking Tobacco: Never Assessed Comments Unknown Sex and Gender Information Value Date Recorded Sex Assigned at Female 06/19/2022 10:36 AM EDT Legal Sex Female 10:36 AM EDT Gender Identity Female 06/19/2022 10:36 AM EDT Sexual Orientation Straight 06/19/2022 10 :36 AM EDT documented as of this encounter Plan of Treatment Upcoming Encounters Date Type Department Care Team ( st Contact Info) Description 01/23/2025 9:00 AM EDT Medication Management [facility] [address] [place], [place] [phone] Marisol Helton, PharmD [address] [place] [address] 02/04/2025 10:30 AM EDT Office Visit [facility] [address] [place], [place] [phone] Kristin Zavaleta MD [address] [place] [address] documented as of this encounter Visit Diagnoses Not on filedocumented in this encounter Care Teams Clinical Research Management Associate Relationship Specialty Start Date End Date Aria Cárdenas FNP PCP - General Family Medicine 02/21/22 01/31/23 Kristin Zavaleta MD [address] [place] [phone] PCP - General Internal Medicine 09/24/23 Marisol Helton, Maria ED [address] [place] [phone] Pharmacist Internal Medicine 03/03/24 documented as of this encounter
--- OUTSIDE RECORDS SUMMARY | 2024-12-31 11:19 | XMS_ITS | Encounter Summary ---
Author Organization [employer] Address [address] [place] [address] Care Team Providers Care Technical Training Instructor Name Role Phone Aria Cárdenas CAR FERRIER Primary Care Provider [phone] Kristin Zavaleta MD Primary Care Provide r Marisol Helton PharmD Unavailable Encounter Details Date Type Department Care Team (Latest Contact Info) Description 05/22/2022 Abstract [facility] Dental, Provider, DDS Social History [...] Description 01/23/2025 9:00 AM EDT Medication Management [facility] [address] [place], [place] [phone] Marisol Helton, PharmD [address] [place] [address] 02/04/2025 10:30 AM EDT Office Visit [facility] [address] [place], [place] [phone] Kristin Zavaleta MD [address] [place] [address] documented as of this encounter Visit Diagnoses Not on filedocumented in this encounter Care Teams Technical Training Instructor Relationship Specialty Start Date End Date Aria Cárdenas FNP PCP - General Family Medicine 02/21/22 01/31/23 Kristin Zavaleta MD [address] [place] [phone] PCP - General Internal Medicine 09/24/23 Marisol Helton, Maria ED [address] [place] [phone] Pharmacist Internal Medicine 03/03/24 documented as of this encounter
--- OUTSIDE RECORDS SUMMARY | 2024-12-31 11:19 | XMS_ITS | Clinical Summary ---
Author Organization [employer] Address [address] [facility] [address] [place] [address] Care Team Providers Care Dock Associate Name Role Phone Kristin Zavaleta MD Primary Care Provide r Marisol Helton PharmD Unavailable Allergies No known active allergies Medications Sodium Fluoride (PreviDent 5000 Booster Plus) 1.1 % paste Apply 1 application to teeth 2 times daily. 112 g 3 023 Active Blood Glucose Monitoring Suppl (FreeStyle Lite) w/Device kitIndications: Type 2 diabetes mellitus with other specified complication, without long-term current use of insulin ([facility]) 1 each 3 times daily. 1 kit 024 Active Lancets 28G miscIndications :Type 2 diabetes mellitus with other specified complication, without long-term current use of insulin ([facility]) Test blood sugar three times daily 100 each 11 024 Active Alcohol Swabs (Alcohol Prep) 70 % pads USE TWICE DAILY BEFORE BREAKFAST AND ONCE 2 HOURS AFTER A MEAL 100 each 5 024 Active glucose (Glutose) 40 % gel oral gelIndications: Type 2 diabetes mellitus with other specified complication, without long-term current use of insulin ([facility]) Take 15 g by mouth if needed for low blood sugar. 45 g 11 024 Active atorvastatin (Lipitor) 40 MG tabletIndicatio ns:Dyslipidemia Take 1 tablet (40 mg) by mouth Once per day. 90 tablet 3 024 Active dapagliflozin (Farxiga) 10 MGIndications:T ype 2 diabetes mellitus with other specified complication, without long-term current use of insulin ([facility]) TAKE 1 TABLET BY MOUTH EVERY MORNING 90 tablet 3 024 Active escitalopram (Lexapro) 20 MG tablet TAKE 1 TABLET BY MOUTH EVERY MORNING FOR MOOD OR ANXIETY 025 Active glipiZIDE (Glucotrol) 5 MG tabletIndicatio ns:Type 2 diabetes mellitus with other specified complication, without long-term current use of insulin ([facility]) TAKE 1 TABLET BY MOUTH TWICE DAILY BEFORE BREAKFAST AND DINNER NEEDED. Do not take if skipping meal. 270 tablet 3 025 Active Ascorbic Acid (vitamin C) 250 MG tabletIndicatio ns:Vitamin C deficiency TAKE 1 TABLET BY MOUTH EVERY OTHER DAY IN THE MORNING WITH IRON 45 tablet 1 025 Active levothyroxine (Synthroid, Levoxyl) 50 MCG tablet TAKE 1 TABLET BY MOUTH EVERY MORNING ON AN EMPTY STOMACH 30 MINUTES BEFORE BREAKFAST 90 tablet 025 Active glucose blood (FREESTYLE LITE) test stripIndication s:Type 2 diabetes mellitus with other specified complication, without long-term current use of insulin ([facility]) TEST BLOOD SUGAR THREE TIMES DAILY 100 each 3 025 Active cholecalciferol (Vitamin D-3) 10 MCG (400 UNIT) tabletIndicatio ns:Vitamin D deficiency TAKE 2 TABLETS ONCE DAILY IN THE MORNING 180 tablet 1 025 Active losartan (Cozaar) 100 MG tablet TAKE 1 TABLET BY MOUTH EVERY MORNING 90 tablet 1 025 Active Ferrous Sulfate (iron) 325 (65 Fe) MG tabletIndicatio ns:Iron deficiency anemia due to chronic blood loss TAKE 1 TABLET BY MOUTH EVERY OTHER DAY IN THE MORNING 45 tablet 1 025 Active metFORMIN (Glucophage) 500 MG tabletIndicatio ns:Type 2 diabetes mellitus with other specified complication, without long-term current use of insulin ([facility]) TAKE 1 TABLET TWICE DAILY IN THE MORNING AND IN THE EVENING WITH MEALS 180 tablet 1 025 Active metoprolol succinate XL (Toprol XL) 25 MG 24 hr tabletIndicatio ns:Essential hypertension Take 1 tablet (25 mg) by mouth Once per day. Do not crush or chew. 90 tablet 1 Active insulin glargine (Lantus SoloStar) 100 UNIT/ML penIndications: Type 2 diabetes mellitus with other specified complication, without long-term current use of insulin ([facility]) INJECT 16 UNITS SUBCUTANEOUSLY ONCE DAILY 15 mL 3 Active B-D UF III MINI PEN NEEDLES 31G X 5 MM miscIndications :Type 2 diabetes mellitus with other specified complication, without long-term current use of insulin ([facility]) Use as directed with insulin administration once daily 100 each 3 Active naproxen (Naprosyn) 500 MG tablet Take 1 tablet (500 mg) by mouth if needed in the morning and at bedtime for mild pain. 30 tablet 1 025 2025 Active Diclofenac Sodium 1 % gel Apply 2 g topically if needed in the morning, at noon, in the evening, and at bedtime (pain). 150 g Active acetaminophen (Tylenol 8 Hour) 650 MG ER tablet Take 1 tablet (650 mg) by mouth every 8 (eight) hours if needed for mild pain. Do not crush, chew, or split. 40 tablet 1 025 2024 Active pen needle 31G x 5 mm miscIndications :Type 2 diabetes mellitus with other specified complication, without long-term current use of insulin ([facility]) Use as instructed 100 each 12 024 2024 metFORMIN (Glucophage) 500 MG tabletIndicatio ns:Type 2 diabetes mellitus with other specified complication, without long-term current use of insulin ([facility]) TAKE 1 TABLET BY MOUTH TWICE DAILY IN THE MORNING AND IN THE EVENING WITH MEALS 180 tablet 1 024 2024 Discontinued losartan (Cozaar) 100 MG tablet TAKE 1 TABLET BY MOUTH ONCE DAILY IN THE MORNING 90 tablet 1 024 2024 Discontinued ferrous sulfate (FeroSul) 325 (65 Fe) MG tabletIndicatio ns:Iron deficiency anemia due to chronic blood loss TAKE 1 TABLET BY MOUTH EVERY OTHER DAY 45 tablet 1 024 2024 Discontinued cholecalciferol (Vitamin D-3) 10 MCG (400 UNIT) tabletIndicatio ns:Vitamin D deficiency TAKE 2 TABLETS BY MOUTH EVERY DAY 180 tablet 1 024 2024 Discontinued insulin glargine (Lantus SoloStar) 100 UNIT/ML penIndications: Type 2 diabetes mellitus with other specified complication, without long-term current use of insulin ([facility]) INJECT 16 UNITS SUBCUTANEOUSLY ONCE DAILY 025 2024 Discontinued(R eorder (will not trigger notification to Pharmacy)) metoprolol succinate XL (Toprol XL) 25 MG 24 hr tabletIndicatio ns:Essential hypertension Take 1 tablet (25 mg) by mouth Once per day. Do not crush or chew. 90 tablet 025 2024 Discontinued(R eorder (will not trigger notification to Pharmacy)) B-D UF III MINI PEN NEEDLES 31G X 5 MM misc use as directed 025 2024 Discontinued(R eorder (will not trigger notification to Pharmacy)) Active Problems Problem Noted Date Diagnosed Date Encounter for screening mamm ogram for malignant neoplasm of breast 11/03/2024 White coat syndrome with diagnosis of hypertensi on 03/14/2024 Assessment & Plan (11/03/2024 4:17 PM EDT): Today her blood pressure is elevated but she is known to have whitecoat syndrome, she tells me her blood pressure has been within normal limits at home Advise low-sodium diet with recommended patient's every day and to continue to check blood pressure at home Assessment & Plan (03/14/2024 8:24 PM EDT): I advise low Na diet C/w same medication regimen Colon cancer screening 12/14/2023 Dyslipidemia 12/14/2023 Type 2 diabetes mellitus with hyperglycemia 10/19 Assessment & Plan (11/03/2024 4:18 PM EDT): Diabetes is: not controlled - Lab Results Component Value Date HGBA1C 8.1 (A) 10/15/2024 HGBA1C 8.0 (A) 06/03/2024 HGBA1C 9.3 (A) 02/29/2024 - Lab Results Component Value Date CREATININE 0.75 03/14/2024 -Changes: About diabetic diet done today - Diabetic eye exam: Up-to-date - Diabetic foot exam: Referral done today - Continue lifestyle modifications - Continue current medications - Follow up: 3 months Assessment & Plan (03/14/2024 8:26 PM EDT): Diabetes is: not controlled but improved - Lab Results Component Value Date HGBA1C 9.3 (A) 02/29/2024 HGBA1C 15.0 (A) 12/14/2023 - Lab Results Component Value Date CREATININE 0.75 03/14/2024 -Changes: Patient did not tolerate farxiga in the morning she reported low glucose after taking it, I advise to take half of tablet before dinner c/w lantus 12U if glucose AM is around 70-100 go down to 10U at bed time - Diabetic eye exam:referral done - Diabetic foot exam:pending - Continue lifestyle modifications - Continue current medications - Follow up: 3 months Assessment & Plan (12/19/2023 1:05 PM EDT): Diabetes is: not controlled - Lab Results Component Value Date HGBA1C 15.0 (A) 12/14/2023 - Lab Results Component Value Date CREATININE 0.80 07/18/2023 -Changes: I started patient on lantus 12U at night, I also started farxiga 5mg daily, I also put prescription in for CGM - Diabetic eye exam:pending - Diabetic foot exam:pending - Continue lifestyle modifications - Follow up: 3 months Overweight 11/14/2023 Anemia 07/17/2023 07/17/2023 Diabetic retinopathy associa mark with controlled type 2 diabetes mellitus 07/17/2023 07/17/2023 Essential hypertension 07/17/2023 Assessment & Plan (12/19/2023 1:01 PM EDT): -blood work ordered today, BP is really high also her HR, I reviewed previous notes and has had similar numbers, I ask to monitor her blood pressure at home and bring log on next appointment, c/w losartan 100mg daily, patient also refer to our pharmacy for chronic conditions management - Aerobic exercise to reduce BP. Initial goal of 30 min walk 3-5x/week. Increase as tolerated. - low-sodium diet (goal: <2g/day) and heart healthy diet such as DASH to reduce BP and prevent ASCVD. - Home BP monitoring 1-2 x day with goal of <140/90. - Seek immediate medical attention for chest pain, palpitations, SOB, syncope, or sudden changes in mental status. - Do not change or discontinue current prescriptions without first consulting health care provider Hypothyroidism 07/17/2023 07/17/2023 Menorrhagia 07/17/2023 07/17/2023 Vitamin D deficiency 07/17/2023 07/17/2023 Dental plaque 03/12/2023 Missing teeth, acquired 03/12/2023 Encounters Date Type Department Care Team Description 12/31/2024 9:40 AM EDT Office Visit [facility] [address] [place] [phone] Thumb pain, right (Primary Dx) 12/26/2024 Travel 12/18/2024 Refill [facility] [address] [place] [address] Kristin Zavaleta MD Vitamin D deficiency; Iron deficiency anemia due to chronic blood loss; Type 2 diabetes mellitus with other specified complication, without long-term current use of insulin ([facility]) 11/19/2024 Travel 11/11/2024 Telephone [facility] [address] [place] [address] Kristin Zavaleta MD 11/03/2024 2:30 PM EDT Office Visit [facility] [address] [place] [address] Kristin Zavaleta MD Screening for colon cancer (Primary Dx); Type 2 diabetes mellitus with other specified complication, without long-term current use of insulin ([facility]); Encounter for screening mammogram for malignant neoplasm of breast; White coat syndrome with diagnosis of hypertension; Type 2 diabetes mellitus with hyperglycemia, with long-term current use of insulin (CMS/HCC) 11/03/2024 Travel 10/31/2024 Population Health Risk Score [facility] [address] [place] [phone] Provider, Population Health Generic 10/28/2024 Refill [facility] [address] [place] [address] Kristin Zavaleta MD 10/24/2024 Patient Outreach [facility] [address] [place] [address] Kristin Zavaleta MD Pre-visit Planning ((Unable to reach for PVP screening and or LVM)) 10/20/2024 Refill [facility] [address] [place] [address] Kristin Zavaleta MD Vitamin C deficiency 10/15/2024 Travel from Last 3 Months Immunizations Immunization Administration Dates Next Due Hep B, adult 06/03/2024,06/09/2020,10/08/2019 Influenza injectable quadriv alent preservative free 06/09/2020,10/08/2019 Influenza, seasonal, injecta ble, preservative free 04/30/2024 Tdap 10/08/2019 Social History Tobacco Use Types Packs/Day Years Used Date Smoking Tobacco: Never Passive Smoke Exposure: Never Smokeless Tobacco: Never Tobacco Cessation:Counseling Given: Not Answered Housing Stability Answer Date Recorded What is your housing situation today? I have brendencarlos herrera 03/14/[address] you [...] Orientation Straight 06/19/2022 10 :36 AM EDT Last Filed Vital Signs Vital Sign Reading [...] Mass Index 25.55 12/31/2024 9:29 AM EDT Plan of Treatment Upcoming Encounters Date Type Department Care Team (Late st Contact Info) Description 01/23/2025 9:00 AM EDT Medication Management [facility] [address] [place] [phone] Marisol Helton, PharmD [address] [place] [phone] 02/04/2025 10:30 AM EDT Office Visit [facility] [address] [place] [phone] Kristin Zavaleta MD [address] [place] [phone] Health Maintenance Due Date Last Done Comments CT Colonography 1978 Colonoscopy 1978 Colorectal Cancer Screening 1978 Depression Screening 1978 FIT DNA/Cologuard 1978 FIT 1978 FOBT 1978 Sigmoidoscopy 1978 Diabetes: Foot Exam 1988 Eye Exam 1988 Alcohol/Substance Use Screening 1990 Family Planning (PISQ) 1993 Pneumococcal Vaccine: Pediatrics (0 to 5 Years) and At-Risk Patients (6 to 49) Years) (1 of 2 - PCV) 1997 Diabetes: Urine Protein Screening 09/17/2020 09/17/2019 Dental Prophylaxis 09/13/2023 03/12/2023, 1 , 12/22/2020 Dental Oral Exam 09/30/2023 03/29/2023, 10/2021, 12/22/2020 Dental X-Ray: Full Mouth 11/03/2023 11/01/2020 Dental X-Ray: Bitewings 03/13/2024 03/12/20 23, 05/22/2022, 12/22/2020 COVID-19 Vaccine ( season) 2024 07/11/2021, 06/20/2021 Mammogram 01/01/2025 01/02/2024 Lipid Panel 03/14/2025 03/14/2024 SDOH Screening 03/14/2025 03/14/2024 Diabetes: Hemoglobin A1C 03/28/2025 025, 10/15/2024, 06/03/2024, Additional history exists Tobacco Screening 11/03/2025 11/03/2024 Cervical Cancer Screening 11/14/2027 HPV/Cotest 11/14/2027 11/13/2022, 10/22/2019 Pap Smear 11/14/2027 11/13/2022, 11/01/2019 Zoster Vaccines (1 of 2) 2028 DTaP/Tdap/Td Vaccines (2 - Td or Tdap) 10/08/2029 10/08/2019 RSV Patients and Patients Aged 60 years or older (1 - 1-dose 75+ series) 2053 HIV Screening Completed 09/17/2019 Hepatitis C Screening Completed 03/14/2024, 020 Influenza Vaccine Completed 04/30/2024, , 10/08/2019 Hepatitis B Vaccines Completed 06/03/2024, 06/09/2020, 10/08/2019 HIB Vaccines Aged Out No longer eligi ble based on patient's age to complete this topic HPV Vaccines Aged Out No longer eligi ble based on patient's age to complete this topic Hepatitis A Vaccines Aged Out No long er eligible based on patient's age to complete this topic IPV Vaccines Aged Out No longer eligi ble based on patient's age to complete this topic Meningococcal B Vaccine Aged Out No l onger eligible based on patient's age to complete this topic Meningococcal Vaccine Aged Out No janice raman eligible based on patient's age to complete this topic RSV under 20 months Aged Out No longe r eligible based on patient's age to complete this topic Rotavirus Vaccines Aged Out No longer eligible based on patient's age to complete this topic Goals Goal Patient Goal Type Associated Problems Recent Progress Patient-Stated? Author Record your blood pressure once per day Blood Pressure No Marisol Garland PharmD Blood Pressure < 140/90 Blood Pressure 140/89(2024 9:29 AM EDT) No Marisol Garland PharmD Take your medication every day Lifestyle No Marisol Garland PharmD Hemoglobin A1c < 7 Result Component 8(12/26/2024 9:18 AM EDT) No Marisol Garland PharmD Procedures Procedure Name Priority Date/Time Associated Diagnosis Comments XR FINGERS 2+ VIEWS RIGHT STAT 12/31/2024 10:20 AM EDT Thumb pain, right POCT GLYCATED HEMOGLOBIN, TOTAL Routine 12/26/2024 9:18 AM EDT Type 2 diabetes mellitus with other specified complication, without long-term current use of insulin (CMS/HCC) POCT GLUCOSE Routine 11/03/2024 2:28 PM EDT Type 2 diabetes mellitus with other specified complication, without long-term current use of insulin (CMS/HCC) POCT GLYCATED HEMOGLOBIN, TOTAL Routine 10/15/2024 9:31 AM EST Type 2 diabetes mellitus with other specified complication, without long-term current use of insulin (CMS/HCC) HEPATITIS C AB W/REFL TO HCV RNA, QN, PCR Routine 03/14/2024 8:30 AM EDT Type 2 diabetes mellitus with other specified complication, without long-term current use of insulin (CMS/HCC) Essential hypertension LIPID PANEL, STANDARD Routine 03/14/2024 8:30 AM EDT Type 2 diabetes mellitus with other specified complication, without long-term current use of insulin (CMS/HCC) Essential hypertension BI MAMMOGRAM SCREENING TOMOSYNTHESIS BILATERAL Routine 01/02/2024 8:55 AM EDT PERIODIC ORAL EVALUATION - ESTABLISHED PATIENT Routine 03/29/2023 9:30 AM EDT PROPHYLAXIS - ADULT Routine 03/12/2023 8 :00 AM EDT Dental plaque BITEWINGS - 3 RADIOGRAPHIC IMAGES Routine 03/12/2023 8:00 AM EDT IMAGE-GUIDED PAP W/AGE BASED SCR PROTOCOLS Routine 11/13/2022 11:40 AM EDT Cervical cancer screening PANORAMIC RADIOGRAPHIC IMAGE Routine 11/01/2020 12:00 AM EDT ZZZ HISTORICAL HIV AB/AG Routine 09/17/2019 9:25 AM EST ZZZ HISTORICAL MICROALBUMIN, RANDOM Routine 09/17/2019 9:19 AM EST from Last 3 Months or Most Recently Relevant to Health Maintenance Results * XR Fingers 2+ Views Right (12/31/2024 10:20 AM EDT) Anatomical Region Laterality Modality Upper Extremities, Fingers Right Radio graphic Imaging 12/31/2024 10:2 0 AM EDT Narrative 12/31/2024 11:11 AM EDT ?[facility] ?[address] ?[place] [address] ?XRay Report ? Signed ? Patient: Urena Rivero,Rosey E ?M ?? R#: [id number] ? : 1980 ?Acct:[id number] ? Age/Sex: 44 / F ?ADM Date: 05/14/25 ? Loc: HO.HHCX ? Attending Dr: Leticia Salazar DO ? Ordering Physician: Leticia Salazar DO ?? Date of Service: 12/31/24 ?? Procedure(s): XR finger RT min 2V ?? Accession Number(s): [id number] ? cc: Leticia Salazar DO ? EXAMINATION: [...] DD/ 1020 ? TD/TT: 12/31/24 1025 ? [employer]: ? Procedure Note Rafaela, Image - 12/31/2024 [place] [address] XRay Report Signed Patient: Rosey Osborne R#: [id number] : 1980Acct:[id number] Age/Sex: 44 / FADM Date: 12/31/24 Loc: HO.HHCX Attending Dr: Leticia Salazar DO Ordering Physician: Leticia Salazar DO Date of Service: 12/31/24 Procedure(s): XR finger RT min 2V Accession Number(s): [id number] cc: Leticia Salazar DO EXAMINATION: XR THUMB, [...] Juanpablo Brown MD 12/31/2024 11:08 AM EDT RP Dictated By: Juanpablo Brown MD Signed By: <Electronically signed by Juanpablo Brown MD in OV> 12/31/24 1108 DD/ 1020 TD/TT: 12/31/24 1025 [employer]: Leticia Salazar DO IMG XR PROCEDURES Final Resu lt * (ABNORMAL) POCT A1C (12/26/2024 9:18 AM EDT) Only the most recent of2 resultswithin the time period is included. Hemoglobin A1C 8.0(A) 4.0 - 6.0 % QC Media Lot # [id number] Lot# Expiration Date ,026 Blood 12/26/2024 9:18 AM EDT Kristin Sims MD POINT OF CARE TEST EN TER/EDIT ORDERABLES Final Result * POCT Glucose (11/03/2024 2:28 PM EDT) Glucose Blood, POC 156 60 - 200 mg/dL QC Media Lot # [id number] Lot# Expiration Date 82,625 Blood Capillary blood specimen / Unknown 11/03/2024 2:28 PM EDT Kristin Sims MD POINT OF CARE TEST EN TER/EDIT ORDERABLES Final Result * Hepatitis C Antibody with Reflex to HCV, RNA, Quantitative, Real-Time PCR (03/14/2024 8:30 AM EDT) Hepatitis C Antibody Nonreactive Nonreactive [facility] Comment:Antibodies to HCV no t detected; does not exclude early acuteHCV infection. Blood Venous blood specimen / Unknown 03/14/2024 8:30 AM EDT 03/14/2024 11:14 AM EDT Kristin Sims MD LAB BLOOD ORDERABLES Final Result [facility] [address] [place] [address] [phone] * Lipid Panel, Standard (03/14/2024 8:30 AM EDT) Triglycerides 49 <150 mg/dL [facility] Comment:Desirable Triglyceri de: less than 150 mg/dLBorderline High Triglyceride 150-199 mg/dLHigh Triglyceride: 200-499 mg/dLVery High Triglyceride: greater than or equal to 5OO mg/dL Cholesterol 146 <200 mg/dL [facility] Comment:Desirable Cholestero l: less than 200 mg/dLBorderline High Cholesterol: 200-239 mg/dLHigh Cholesterol: greater than 239 mg/dL LDL Cholesterol Calculated 86 <100 mg/dL [facility] Comment:Desirable LDL: less than 100 mg/dLNear Optimal/Above Optimal LDL: 110- 129 mg/dLBorderline High LDL: 130-159 mg/dLHigh LDL: 160-189 mg/dLVery High LDL: greater than or equal to 190 mg/dL HDL Cholesterol 51 >40 mg/dL [facility] Comment:Desirable HDL: great er than 40 mg/dL Note: This HDL assay may give artificially low results in patients with liver disease. Blood Venous blood specimen / Unknown 03/14/2024 8:30 AM EDT 03/14/2024 11:14 AM EDT us Barbara Barciona Sims MD LAB BLOOD ORDERABLES Final Result [facility] [address] [place] [phone] * BI Mammogram Screening Tomosynthesis Bilateral (01/02/2024 8:55 AM EDT) Anatomical Region Laterality Modality Breast Bilateral Mammography 01/02/2024 8:55 AM EDT Narrative 02/01/2024 6:14 AM EDT ? [facility] ? [address] ?[place] [id number] ? Mammography Report ? Signed ? Patient: Rosey Osborne ?M ?? R#: [id number] ? : 1980 ?Acct:[id number] ? Age/Sex: 43 / F ?ADM Date: 01/02/24 ? Loc: HO.MAMMO ? Attending Dr: Jackie Ovalle ? Ordering Physician: Jackie Ovalle ? Results: 2Benign F ?? indings ? Date of Service: 01/02/24 ?Follow Up: 1 Year From Orig ?? inal Mammogram ? Procedure(s): MM tomosynthesis screening BI ?? Accession Number(s): [id number] ? cc: Jackie Ovalle ; Kristin Zavaleta MD ? EXAMINATION: ?? MM SCREENING DIGITAL BREAST TOMOSYNTHESIS, BILATERAL ? CLINICAL INFORMATION: ? Screening. Asymptomatic. ? COMPARISON: ?? Mammography: This study is compared with prior exams dating back to ?? 2022. ? TECHNIQUE: ?? Digital breast tomosynthesis is performed in both the craniocaudal and ?? mediolateral oblique views along with computer-aided detection (CAD). ?? Synthesized 2D images are generated from the tomosynthesis. ? FINDINGS: ?? The breasts are heterogeneously dense, which may obscure small masses ?? (ACR BI-RADS breast composition Category c). ? There are no significant masses, abnormal calcifications, or other ?? abnormalities. ? There is a tissue marker in the left breast from prior benign ?? percutaneous biopsy. It is associated with a mammographically benign ?? mass. ?? There are coarse, benign calcifications in the medial aspect of the ?? right breast. ? Few benign calcifications are present in the medial aspect of the right ?? breast. ? MM/MM tomosynthesis screening BI ?? IMPRESSION: ?? No mammographic evidence of malignancy. ? ASSESSMENT: ? BI-RADS BI-RADS 2 - Benign Findings ? RECOMMENDATION: ?? Routine annual mammography screening. ? 1 year F/U ? This examination should not preclude the clinical evaluation of a ?? suspicious palpable abnormality. ? This patient's information was entered into a reminder system with a ?? target due date for their next mammogram. ? Dictated By: ?Deysi Starks MD ? Signed By: ?<Electronically signed by Deysi Starks MD in OV> ? 02/01/24 0611 ? DD/ 0855 ? TD/TT: ? [employer]: ? Procedure Note Rafaela, Gayathri - 02/01/2024 [facility] [address] [place] [address] Dr. [place], [place] [id number] Mammography Report Signed Patient: Rosey Osborne R#: [id number] : 1980Acct:[id number] Age/Sex: 43 / FADM Date: 01/02/24 Loc: ALBERTO Attending Dr: Jackie Ovalle Ordering Physician: Jackie OvalleResults: 2Benign F indings Date of Service: 01/02/24Follow Up: 1 Year From [facility] ina Mammogram Procedure(s): MM tomosynthesis screening BI Accession Number(s): [id number] cc: Jackie Ovalle ; Kristin Zavaleta MD EXAMINATION: MM SCREENING DIGITAL BREAST TOMOSYNTHESIS, BILATERAL CLINICAL INFORMATION: Screening. Asymptomatic. COMPARISON: Mammography: This study is compared with prior exams dating back to 2022. TECHNIQUE: Digital breast tomosynthesis is performed in both the craniocaudal and mediolateral oblique views along with computer-aided detection (CAD). Synthesized 2D images are generated from the tomosynthesis. FINDINGS: The breasts are heterogeneously dense, which may obscure small masses (ACR BI-RADS breast composition Category c). There are no significant masses, abnormal calcifications, or other abnormalities. There is a tissue marker in the left breast from prior benign percutaneous biopsy. It is associated with a mammographically benign mass. There are coarse, benign calcifications in the medial aspect of the right breast. Few benign calcifications are present in the medial aspect of the right breast. MM/MM tomosynthesis screening BI IMPRESSION: No mammographic evidence of malignancy. ASSESSMENT: BI-RADS BI-RADS 2 - Benign Findings RECOMMENDATION: Routine annual mammography screening. 1 year F/U This examination should not preclude the clinical evaluation of a suspicious palpable abnormality. This patient's information was entered into a reminder system with a target due date for their next mammogram. Dictated By: Deysi Starks MD Signed By: <Electronically signed by Deysi Starks MD in OV> 02/01/24 0611 DD/ 0855 TD/TT: [employer]: [facility] External Provider IMG BI PROCEDURES Edited Result - Final * Image-Guided Pap with Age-Based Screening Protocols (11/13/2022 11:40 AM EDT) Comment [facility] Comment: This order for age-based cervical cancer and STI screening follows ACOG guidelines(PB 168, 140, FUV827). See individual assays for performing site location. Clinical Information: None given [facility] LMP: NONE GIVEN [facility] [place] [facility] Prev. PAP: NONE GIVEN [facility] [place] [facility] Prev. BX: NO [facility] [place] [facility] SOURCE: None given [facility] [place] [facility] Statement Of Adequacy: [facility] [place] [employer] Comment: Satisfactory for evaluation. Endocervical/transformation zone component present. Interpretation/ Result: Negative for intraepithelial lesion or malignancy. [facility] [place] [facility] COMMENT: [facility] [place] [employer] Comment: This case could not be evaluated with computer assisted technology. The slide was manually screened according to routine procedures. Cytotechnologis t: [facility] [place] [employer] Comment: MXD, CT (ASCP) CT screening location: [address] ??[id number] Review Cytotechnologis t: [facility] [place] [employer] Comment: GSG, CT(ASCP) CT screening location: [address] ??[phone] (Always Message) [facility] [place] [employer] Comment: EXPLANATORY NOTE: The Pap is a screening test for cervical cancer. It is not a diagnostic test and is subject to false negative and false positive results. It is most reliable when a satisfactory sample, regularly obtained, is submitted with relevant clinical findings and history, and when the Pap result is evaluated along with historic and current clinical information. HPV nRNA E6/E7 Not Detected Not Detected [facility] [place] [employer] Comment: Methodology: Parts Room Assistant-Mediated Amplification This assay detects E6/E7 viral messenger RNA (mRNA) from 14 high-risk HPV types (16,18,31,33,35,39,45,51,52,56,58,59,66,68). Cervical sources are required for HPV testing. If a vaginal source from a patient who has had a total hysterectomy with removal of cervix was submitted, please contact the testing laboratory for alternative testing options. For additional information, please refer to http://education.ClearTax/faq/OXF000f6 (This link if provided for information/ educational purposes only.) Cytology specimen container (physical object) 11/13/2022 11:40 AM EDT 11/14/2022 9:49 AM EDT Prerna Meehan [facility] BLOOD ORDERABLES Corrina saucedo Result [facility] [address] [facility], [facility], [place] [address] [facility] [address] [place] [address] * HIV AB/AG (09/17/2019 9:25 AM EST) HIV AG/AB NONREACTIVE NR [facility] Comment: HIV-1 p24 Ag and/or HIV-1/HIV-2 Ab not detected. ?? A test result that is nonreactive does not exclude the possibility of exposure to or infection with HIV-1 and/or HIV-2. Nonreactive results in this assay for individuals with prior exposure to HIV-1 and/or HIV-2 may be due to antigen and antibody levels that are below the limit of detection of this assay. ?? The Rehman Chief Data Officer HIV Ag/Ab Combo assay result and supplemental assay results should be interpreted in conjunction with the patient's clinical presentation, history and other laboratory results. ??If the results are inconsistent with clinical evidence, additional testing is suggested to confirm the result. 09/17/2019 9:25 AM EST Mary Caballero USABILITY STRATEGIST HISTORICAL/NON ORDERABLE LA BS Final Result Performing Organization Address City/[facility]/ZIP Co de Phone Number [facility] Anywhere [address] * MICROALBUMIN, RANDOM (09/17/2019 9:19 AM EST) CREATININE, RANDOM URINE 85.34 MG/DL [facility] MICALB/CRE RATIO RANDOM URINE 36.3 ug/mg cr [facility] Comment: ?Albumin/Creatinine Ratio Reference Ranges: ? Normal: < 30 ug/mg creatinine ? Microalbuminuria: ??30 - 300 ug/mg creatinine Clinical Albuminuria: ??> 300 ug/mg creatinine MICROALBUMIN, RANDOM URINE 31.0 MG/L [facility] 09/17/2019 9:19 AM EST us Eduardomureno Federico USABILITY STRATEGIST HISTORICAL/NON ORDERABLE LA BS Final Result [facility] [address] from Last 3 Months or Most Recently Relevant to Health Maintenance Insurance [facility] [employer] STAND ADULT Care Teams Dock Associate Relationship Specialty Start Date End Date Kristin Zavaleta MD [address] [place] [address] PCP - General Internal Medicine 09/24/23 Marisol Helton, Maria ED [address] [place] [address] Pharmacist Internal Medicine 03/03/24
--- OUTSIDE RECORDS SUMMARY | 2024-12-31 11:19 | XMS_ITS | Encounter Summary ---
Author Organization [employer] Address [address] [facility] 7t [place] [address] Care Team Providers Care Caddy/Caddie Supervisor Name Role Phone Aria Cárdenas REPORTS ANALYST Primary Care Provider [phone]- [phone] Kristin Zavaleta MD Primary Care Provide r Marisol Helton PharmD Unavailable Encounter Details Date Type Department Care Team (Latest Contact Info) Description 11/03/2019 Abstract [facility] CONVERSIONS Dental, Provider, DDS Social History [...] 01/23/2025 9:00 AM EDT Medication Management [facility] [address] [place], [place] [phone] Marisol Helton, PharmD [address] [place] [address] 02/04/2025 10:30 AM EDT Office Visit [facility] [address] [place], [place] [phone] Kristin Zavaleta MD [address] [place] [phone] documented as of this encounter Visit Diagnoses Not on filedocumented in this encounter Care Teams Caddy/Caddie Supervisor Relationship Specialty Start Date End Date Aria Cárdenas FNP PCP - General Family Medicine 02/21/22 01/31/23 Kristin Zavaleta MD [address] [place] [address] PCP - General Internal Medicine 09/24/23 Marisol Helton, Maria ED [address] [place] [address] Pharmacist Internal Medicine 03/03/24 documented as of this encounter
== END 2024-12-31 10:20 | disposition home or self-care (01) ==
LOC: HO.HHCX 10:19
PROVIDERS: Visit Provider Family Medicine
DX: M79.644 Pain in right finger(s) (principal)
CPT/HCPCS: 73140

== ENCOUNTER → 2024-12-31 10:20 | Outpatient (BNV) | payer MEDICAID, SELFPAY | PROVIDERS: Visit Provider Radiology Diagnostic Radiology | DX: M79.644 Pain in right finger(s) (principal) | CPT/HCPCS: 73140 ==

== ENCOUNTER 2025-01-05 12:16 | Outpatient (REF) | payer MEDICAID, SELFPAY ==
--- OUTSIDE RECORDS SUMMARY | 2025-01-05 12:43 | XMS_ITS | Encounter Summary ---
Author Organization [employer] Address [address] [facility] 7t [place] [address] Care Team Providers Care Ophthalmic Aide Name Role Phone Aria Cárdenas STEEL POST INSTALLER SUPERVISOR Primary Care Provider [phone]- [phone] Kristin Zavaleta MD Primary Care Provide r Marisol Helton PharmD Unavailable Encounter Details Date Type Department Care Team (Latest Contact Info) Description 11/03/2019 Abstract [facility] CONVERSIONS Dental, Provider, DDS Social History [...] Description 01/23/2025 9:00 AM EDT Medication Management [facility] [address] [place], [place] [phone] Marisol Helton, PharmD [address] [place] [address] 02/04/2025 10:30 AM EDT Office Visit [facility] [address] [place], [place] [phone] Kristin Zavaleta MD [address] [place] [phone] documented as of this encounter Visit Diagnoses Not on filedocumented in this encounter Care Teams Ophthalmic Aide Relationship Specialty Start Date End Date Aria Cárdenas FNP PCP - General Family Medicine 02/21/22 01/31/23 Kristin Zavaleta MD [address] [place] [phone] PCP - General Internal Medicine 09/24/23 Marisol Helton, Maria ED [address] [place] [address] Pharmacist Internal Medicine 03/03/24 documented as of this encounter
--- OUTSIDE RECORDS SUMMARY | 2025-01-05 12:43 | XMS_ITS | Encounter Summary ---
Author Organization [employer] Address [address] [facility] 7t [place] [address] Care Team Providers Care Surgical Attendant Name Role Phone Aria Cárdenas INFECTION CONTROL PREVENTIONIST Primary Care Provider [phone]- [phone] Kristin Zavaleta MD Primary Care Provide r Marisol Helton PharmD Unavailable +1- [phone] Encounter Details Date Type Department Care Team (Latest Contact Info) Description 12/22/2020 Abstract [facility] CONVERSIONS Dental, Provider, DDS Social History [...] Description 01/23/2025 9:00 AM EDT Medication Management [facility] [address] [place], [place] [phone] Marisol Helton, PharmD [address] [place] [address] 02/04/2025 10:30 AM EDT Office Visit [facility] [address] [place], [place] [phone] Kristin Zavaleta MD [address] [place] [address] documented as of this encounter Visit Diagnoses Not on filedocumented in this encounter Care Teams Surgical Attendant Relationship Specialty Start Date End Date Aria Cárdenas FNP PCP - General Family Medicine 02/21/22 01/31/23 Kristin Zavaleta MD [address] [place] [address] PCP - General Internal Medicine 09/24/23 Marisol Helton, Maria ED [address] [place] [phone] Pharmacist Internal Medicine 03/03/24 documented as of this encounter
--- OUTSIDE RECORDS SUMMARY | 2025-01-05 12:43 | XMS_ITS | Encounter Summary ---
Author Organization [employer] Address [address] [facility] 7t [place] [address] Care Team Providers Care Cycle Manager Name Role Phone Aria Cárdenas TELECOMMUNICATIONS PROFESSIONAL Primary Care Provider [phone]- [phone] Kristin Zavaleta MD Primary Care Provide r Marisol Helton PharmD Unavailable Encounter Details Date Type Department Care Team (Latest Contact Info) Description 05/22/2022 Abstract [facility] CONVERSIONS Dental, Provider, DDS Social [...] Description 01/23/2025 9:00 AM EDT Medication Management [facility] [address] [place], [place] [phone] Marisol Helton, PharmD [address] [place] [address] 02/04/2025 10:30 AM EDT Office Visit [facility] [address] [place], [place] [phone] Kristin Zavaleta MD [address] [place] [address] documented as of this encounter Visit Diagnoses Not on filedocumented in this encounter Care Teams Cycle Manager Relationship Specialty Start Date End Date Aria Cárdenas FNP PCP - General Family Medicine 02/21/22 01/31/23 Kristin Zavaleta MD [address] [place] [address] PCP - General Internal Medicine 09/24/23 Marisol Helton, Maria ED [address] [place] [phone] Pharmacist Internal Medicine 03/03/24 documented as of this encounter
--- OUTSIDE RECORDS SUMMARY | 2025-01-05 12:44 | XMS_ITS | Clinical Summary ---
Author Organization [address] [facility] Address [address] [place] [address] Phone Care Team Providers Care Auto Transmission Mechanic Name Role Phone Kristin Zavaleta MD Primary Care Provide r Social History Tobacco Use Types Packs/Day Years Used Date Smoking Tobacco: Never Assessed Comments Unknown Sex and Gender Information Value Date Recorded Sex Assigned at Not on file Legal Sex Female 3:52 PM EDT Gender Identity Not on file Sexual Orientation Not on file Plan of Treatment Upcoming Encounters Date Type Department Care Team ([facility] Contact Info) Description 01/21/2025 9:30 AM EDT Consult Orthopedic Surgery - [place] [phone] [phone] Mohamud Shannon DPM [address] [address] Health Maintenance Due Date Last Done Comments Breast Cancer Screening 1978 Diabetes: Annual GFR (Glomer ular Filtration Rate) 1978 Diabetes: Annual Foot Exam 1988 Diabetes: Annual Retina Eye Exam 1988 DTaP,Tdap,and Td Vaccines (1 - Tdap) 1997 Hepatitis B Vaccines (1 of 3 - 19+ 3-dose series) 1997 Pneumococcal Vaccine: Pediat rics (0 to 5 Years) and At-Risk Patients (6 to 64 Years) (1 of 2 - PCV) 1997 Cervical Cancer Screening: P ap Smear 1999 COVID-19 Vaccine (2023-2 5 season) 2024 Cholesterol Screening (Lipid Panel) 12/04/2024 Colorectal Cancer Screening: Colonoscopy 12/04/2024 Depression Screening 12/04/2024 Diabetes: Annual Urine Albumin-Creatinine Ratio (uACR) 12/04/2024 Diabetes: Blood Sugar Contro l Test (HGBA1C) 12/04/2024 HIV Screening 12/04/2024 Hepatitis C Screening 12/04/2024 Social Influencers of Health Screening 12/04/2024 Influenza Vaccine (Season Ended) 2025 HIB Vaccines Aged Out No longer eligi [...] on patient's age to complete this topic MMR Vaccines Aged Out No longer eligi ble based on patient's age to complete this topic Meningococcal ACWY Vaccine Aged Out N o longer eligible based on patient's age to complete this topic Meningococcal B Vaccine Aged Out No l onger eligible based on patient's age to complete this topic RSV Immunization Patients Un rosalva 20 months Aged Out No longer eligible b ased on patient's age to complete this topic Varicella Vaccines Aged Out No longer eligible based on patient's age to complete this topic Insurance MEDICAID - [place] Care Teams Auto Transmission Mechanic Relationship Specialty Start Date End Date Kristin Zavaleta MD [address] [place] [phone] PCP - General Internal Medicine 12/03/24
--- OUTSIDE RECORDS SUMMARY | 2025-01-05 12:44 | XMS_ITS | Clinical Summary ---
Author Organization [employer] Address 75 [facility] 7t [place] [address] Care Team Providers Care Licensed Mass Real Estate Appraiser Name Role Phone Kristin Zavaleta MD Primary [...] complication, without long-term current use of insulin ([facility]) 1 each 3 times daily. 1 kit 024 Active Lancets 28G miscIndications :Type 2 diabetes mellitus with other specified complication, without long-term current use of insulin ([facility]) Test blood sugar three times daily 100 each 11 024 Active Alcohol Swabs (Alcohol Prep) 70 % pads USE TWICE DAILY BEFORE BREAKFAST AND ONCE 2 HOURS AFTER A MEAL 100 each 5 024 Active glucose (Glutose) 40 % gel oral gelIndications: Type 2 diabetes mellitus with other specified complication, without long-term current use of insulin ([facility]) Take 15 g by mouth if needed for low blood sugar. 45 g 11 024 Active atorvastatin (Lipitor) 40 MG tabletIndicatio ns:Dyslipidemia Take 1 tablet (40 mg) by mouth Once per day. 90 tablet 3 024 Active dapagliflozin (Farxiga) 10 MGIndications:T ype 2 diabetes mellitus with other specified complication, without long-term current use of insulin ([facility]) TAKE 1 TABLET BY MOUTH EVERY MORNING 90 tablet 3 024 Active escitalopram (Lexapro) 20 MG tablet TAKE 1 TABLET BY MOUTH EVERY MORNING FOR MOOD OR ANXIETY 025 Active glipiZIDE (Glucotrol) 5 MG tabletIndicatio ns:Type 2 diabetes mellitus with other specified complication, without long-term current use of insulin ([facility]) TAKE 1 TABLET BY MOUTH TWICE DAILY [...] complication, without long-term current use of insulin ([facility]) TEST BLOOD SUGAR THREE TIMES DAILY 100 [...] complication, without long-term current use of insulin ([facility]) TAKE 1 TABLET TWICE DAILY IN THE [...] complication, without long-term current use of insulin ([facility]) INJECT 16 UNITS SUBCUTANEOUSLY ONCE DAILY 15 mL 3 Active B-D UF III MINI PEN NEEDLES 31G X 5 MM miscIndications :Type 2 diabetes mellitus with other specified complication, without long-term current use of insulin ([facility]) Use as directed with insulin administration once [...] complication, without long-term current use of insulin ([facility]) Use as instructed 100 each 12 024 2024 metFORMIN (Glucophage) 500 MG tabletIndicatio ns:Type 2 diabetes mellitus with other specified complication, without long-term current use of insulin ([facility]) TAKE 1 TABLET BY MOUTH TWICE DAILY [...] complication, without long-term current use of insulin ([facility]) INJECT 16 UNITS SUBCUTANEOUSLY ONCE DAILY 025 [...] Description 12/31/2024 9:40 AM EDT Office Visit [facility] [address] [place] [address] Thumb pain, right (Primary Dx) 12/26/2024 Travel 12/18/2024 Refill [facility] [address] [place] [address] Kristin Zavaleta MD Vitamin D deficiency; Iron deficiency anemia due to chronic blood loss; Type 2 diabetes mellitus with other specified complication, without long-term current use of insulin ([facility]) 11/19/2024 Travel 11/11/2024 Telephone [facility] [address] [place] [address] Kristin Zavaleta MD 11/03/2024 2:30 PM EDT Office Visit [facility] [address] [place] [address] Kristin Zavaleta MD Screening for colon cancer (Primary Dx); Type 2 diabetes mellitus with other specified complication, without long-term current use of insulin ([facility]); Encounter for screening mammogram for malignant neoplasm of breast; White coat syndrome with diagnosis of hypertension; Type 2 diabetes mellitus with hyperglycemia, with long-term current use of insulin (CMS/HCC) 11/03/2024 Travel 10/31/2024 Population Health Risk [facility] [address] [place] [phone] Provider, Population Health Generic 10/28/2024 Refill [facility] [address] [place] [address] Kristin Zavaleta MD 10/24/2024 Patient Outreach [facility] [address] [place] [address] Kristin Zavaleta MD Pre-visit Planning ((Unable to reach for PVP screening and or LVM)) 10/20/2024 Refill [facility] [address] [place] [address] Kristin Zavaleta MD Vitamin C deficiency 10/15/2024 [...] Description 01/23/2025 9:00 AM EDT Medication Management [facility] [address] [place] [address] Marisol Helton, PharmD [address] [place] [address] 02/04/2025 10:30 AM EDT Office Visit [facility] [address] [place] [address] Kristin Zavaleta MD [address] [place] [address] Health Maintenance Due Date Last Done Comments CT Colonography 1978 Colonoscopy 1978 Colorectal Cancer Screening 1978 Depression Screening 1978 FIT DNA/Cologuard 1978 FIT 1978 FOBT 1978 Sigmoidoscopy 1978 Disability Screening 1978 Diabetes: Foot Exam 1988 Eye Exam [...] pressure once per day Blood Pressure No Carito-Marisol Merritt PharmD Blood Pressure < 140/90 Blood Pressure 140/89(2024 9:29 AM EDT) No Marisol Garland PharmD Take your medication every day Lifestyle No Geremiass-Marisol Merritt, PharmD Hemoglobin A1c < 7 Result Component 8(12/26/2024 9:18 AM EDT) No Geremiass-Marisol Merritt PharmD Procedures Procedure Name Priority Date/Time Associated [...] AM EDT Narrative 12/31/2024 11:11 AM EDT ?[facility] ?[address] ?[place] [address] ?XRay Report ? Signed ? Patient: Urena Rivero,Rosey E ?M ?? R#: [id number] ? : 1980 ?Acct:[id number] ? Age/Sex: 44 / F ?ADM Date: 05/14/25 ? Loc: HO.HHCX ? Attending Dr: Leticia Salazar DO ? Ordering Physician: Leticia Salazar DO ?? Date of Service: 12/31/24 ?? Procedure(s): XR finger RT min 2V ?? Accession Number(s): [id number] ? cc: Leticia Salazar DO ? EXAMINATION: [...] DD/ 1020 ? TD/TT: 12/31/24 1025 ? Financial Administrative Assistant: ? Procedure Note Rafaela, Image - 12/31/[address] [address] XRay Report Signed Patient: Rsoey Osborne R#: [id number] : 1980Acct:[id number] Age/Sex: 44 / FADM Date: 12/31/24 Loc: HO.HHCX Attending Dr: Leticia Salazar DO Ordering Physician: Leticia Salazar DO Date of Service: 12/31/24 Procedure(s): XR finger RT min 2V Accession Number(s): [id number] cc: Leticia Salazar DO EXAMINATION: XR THUMB, [...] 12/31/24 1108 DD/ 1020 TD/TT: 12/31/24 1025 Financial Administrative Assistant: Result [facility] Leticia Salazar DO IMG XR PROCEDURES Final [...] AM EDT) Hepatitis C Antibody Nonreactive Nonreactive [facility] Comment:Antibodies to HCV no t detected; does not exclude early acuteHCV infection. Blood Venous blood specimen / Unknown 03/14/2024 8:30 AM EDT 03/14/2024 11:14 AM EDT us Kristin Sims MD LAB BLOOD ORDERABLES Final Result [facility] [address] [place] [phone] * Lipid Panel, Standard (03/14/2024 8:30 AM EDT) Triglycerides 49 <150 mg/dL [facility] Comment:Desirable Triglyceri de: less than 150 mg/dLBorderline High Triglyceride 150-199 mg/dLHigh Triglyceride: 200-499 mg/dLVery High Triglyceride: greater than or equal to 5OO mg/dL Cholesterol 146 <200 mg/dL [facility] Comment:Desirable Cholestero l: less than 200 mg/dLBorderline High Cholesterol: 200-239 mg/dLHigh Cholesterol: greater than 239 mg/dL LDL Cholesterol Calculated 86 <100 mg/dL [facility] Comment:Desirable LDL: less than 100 mg/dLNear Optimal/Above Optimal LDL: 110- 129 mg/dLBorderline High LDL: 130-159 mg/dLHigh LDL: 160-189 mg/dLVery High LDL: greater than or equal to 190 mg/dL HDL Cholesterol 51 >40 mg/dL [facility] Comment:Desirable HDL: great er than 40 mg/dL Note: This HDL assay may give artificially low results in patients with liver disease. Blood Venous blood specimen / Unknown 03/14/2024 8:30 AM EDT 03/14/2024 11:14 AM EDT us Kristin Sims MD LAB BLOOD ORDERABLES Final Result [facility] [address] [place] [phone] * BI Mammogram Screening Tomosynthesis Bilateral (01/02/2024 8:55 AM EDT) Anatomical Region Laterality Modality Breast Bilateral Mammography 01/02/2024 8:55 AM EDT Narrative 02/01/2024 6:14 AM EDT ? [facility] ? [address] ?[place] [address] ? Mammography Report ? Signed ? Patient: Rosey Osborne ?M ?? R#: [id number] ? : 1980 ?Acct:[id number] ? Age/Sex: 43 / F ?ADM Date: 01/02/24 ? Loc: HO.MAMMO ? Attending Dr: Jackie Ovalle ? Ordering Physician: Jackie Ovalle ? Results: 2Benign F ?? indings ? Date of Service: 01/02/24 ?Follow Up: 1 Year From Orig ?? inal Mammogram ? Procedure(s): MM tomosynthesis screening BI ?? Accession Number(s): [id number] ? cc: Jackie Ovalle ; Kristin Zavaleta [...] 0611 ? DD/ 0855 ? TD/TT: ? Financial Administrative Assistant: ? Procedure Note Rafaela, Gayathri - 02/01/2024 [facility] [address] [place] [address] [place] [address] Mammography Report Signed Patient: Rosey Osborne R#: [id number] : 1980Acct:[id number] Age/Sex: 43 / FADM Date: 05/15/24 Loc: HO.MAMMO Attending Dr: Jackie Ovalle Ordering Physician: Jackie OvalleResults: 2Benign F indings Date of Service: 01/02/24Follow Up: 1 Year From Orig ina Mammogram Procedure(s): MM tomosynthesis screening BI Accession Number(s): [id number] cc: Jackie Ovalle ; Kristin Zavaleta MD [...] in OV> 02/01/24 0611 DD/ 0855 TD/TT: Financial Administrative Assistant: [facility] External Provider IMG BI PROCEDURES Edited Result - Final * Image-Guided Pap with Age-Based Screening Protocols (11/13/2022 11:40 AM EDT) Comment [facility] Comment: This order for age-based cervical cancer and STI screening follows ACOG guidelines(PB 168, 140, HYO199). See individual assays for performing site location. Clinical Information: None given [facility] [place] [facility] LMP: NONE GIVEN [facility] [place] [facility] Prev. PAP: NONE GIVEN [facility] [place] [facility] Prev. BX: NO [facility] [place] [facility] SOURCE: None given [facility] Statement Of Adequacy: [facility] [place] [facility] Comment: Satisfactory for evaluation. Endocervical/transformation zone component present. Interpretation/ Result: Negative for intraepithelial lesion or malignancy. [facility] [place] [facility] COMMENT: [facility] Comment: This case could not be evaluated with computer assisted technology. The slide was manually screened according to routine procedures. Cytotechnologis t: [facility] [place] [facility] Comment: MXD, CT (ASCP) CT screening location: [address] ??[address] Review Cytotechnologis t: [facility] [place] [facility] Comment: GSG, CT(ASCP) CT screening location: [address] ??[address] (Always Message) [facility] [place] [facility] Comment: EXPLANATORY NOTE: The Pap is a [...] HPV nRNA E6/E7 Not Detected Not Detected [facility] Comment: Methodology: Freight Breaker-Mediated Amplification This assay detects E6/E7 viral messenger RNA (mRNA) from 14 high-risk HPV types (16,18,31,33,35,39,45,51,52,56,58,59,66,68). Cervical sources are required for HPV testing. If a vaginal source from a patient who has had a total hysterectomy with removal of cervix was submitted, please contact the testing laboratory for alternative testing options. For additional information, please refer to http://education.[employer] Trading/faq/RSR111e8 (This link if provided for information/ educational purposes only.) Cytology specimen container (physical object) 11/13/2022 11:40 AM EDT 11/14/2022 9:49 AM EDT Prerna Meehan [facility] LAB BLOOD ORDERABLES Corrina saucedo Result [facility] [address], [place] [address] [facility] [address] [place] [address] * HIV AB/AG (09/17/2019 9:25 AM EST) [...] detection of this assay. ?? The Rehman Roll Grinder HIV Ag/Ab Combo assay result and supplemental assay results should be interpreted in conjunction with the patient's clinical presentation, history and other laboratory results. ??If the results are inconsistent with clinical evidence, additional testing is suggested to confirm the result. 09/17/2019 9:25 AM EST Mary Caballero MEMORIAL COUNSELOR HISTORICAL/NON ORDERABLE [place] BS Final Result [facility] [address] * MICROALBUMIN, RANDOM (09/17/2019 9:19 AM EST) CREATININE, RANDOM URINE 85.34 MG/DL [facility] MICALB/CRE RATIO RANDOM URINE 36.3 ug/mg cr [facility] Comment: ?Albumin/Creatinine Ratio Reference Ranges: ? Normal: < 30 ug/mg creatinine ? Microalbuminuria: ??30 - 300 ug/mg creatinine Clinical Albuminuria: ??> 300 ug/mg creatinine MICROALBUMIN, RANDOM URINE 31.0 MG/L [facility] 09/17/2019 9:19 AM EST us Mary Caballero MEMORIAL COUNSELOR HISTORICAL/NON ORDERABLE [place] BS Final Result [facility] [address] [place] [address], from Last 3 Months or Most Recently Relevant to Health Maintenance Insurance [employer] [facility] STAND ADULT Care Teams Licensed [employer] Real Estate Appraiser Relationship Specialty Start Date End Date Kristin Zavaleta MD [address] [place] [address] PCP - General Internal Medicine 09/24/23 Marisol Helton, Maria ED [address] [place] [address] Pharmacist Internal Medicine 03/03/24
--- OUTSIDE RECORDS SUMMARY | 2025-01-05 12:44 | XMS_ITS | Encounter Summary ---
Author Organization [employer] Address [address] [facility] [address] [place] [address] Care Team Providers Care Locomotive Engineer Electric Name Role Phone Kristin Zavaleta MD Primary Care Provide r Marisol Helton PharmD Unavailable Encounter Details Date Type Department Care Team (Late st Contact Info) Description 12/31/2024 9:40 AM EDT Office Visit [facility] [address] [place] [address] Thumb pain, right (Primary Dx) Social History [...] 01/23/2025 9:00 AM EDT Medication Management [facility] [address] [place] [address] Marisol Helton PharmD [address] [place] [address] 02/04/2025 10:30 AM EDT Office Visit [facility] [address] [place] [address] Kristin Zavaleta MD [address] [place] [address] documented as of this encounter Goals Goal [...] AM EDT Narrative 12/31/2024 11:11 AM EDT ?[facility] ?[address] ?[place] [address] ?XRay Report ? Signed ? Patient: Rosey sOborne E ?M ?? R#: [id number] ? : 1980 ?Acct:[id number] ? Age/Sex: 44 / F ?ADM Date: 12/31/24 ? Loc: HO.HHCX ? Attending Dr: Leticia Salazar DO ? Ordering Physician: Leticia Salazar DO ?? Date of Service: 12/31/24 ?? Procedure(s): XR finger RT min 2V ?? Accession Number(s): [id number] ? cc: Leticia Salazar DO ? EXAMINATION: [...] DD/ 1020 ? TD/TT: 12/31/24 1025 ? Butcher Or Smallgoods Maker: ? Procedure Note Marciter, Image - 12/31/[address] [address] XRay Report Signed Patient: Rosey Osborne R#: [id number] : 1980Acct:[id number] Age/Sex: 44 / FADM Date: 12/31/24 Loc: HO.HHCX Attending Dr: Leticia Salazar DO Ordering Physician: Leticia Salazar DO Date of Service: 12/31/24 Procedure(s): XR finger RT min 2V Accession Number(s): [id number] cc: Leticia Salazar DO EXAMINATION: XR THUMB, [...] 12/31/24 1108 DD/ 1020 TD/TT: 12/31/24 1025 Butcher Or Smallgoods Maker: us Leticia Salazar DO IMG XR PROCEDURES Final Resu lt documented in this encounter Visit Diagnoses Diagnosis Thumb pain, right- Primary documented in this encounter Care Teams Locomotive Engineer Electric Relationship Specialty Start Date End Date Kristin Zavaleta MD [address] [place] [address] PCP - General Internal Medicine 09/24/23 Marisol Helton PharmD [address] [place] [address] Pharmacist Internal Medicine 03/03/24 documented as of this encounter
== END 2025-01-05 12:17 | disposition home or self-care (01) ==
LOC: HO.MAMMO 12:16
PROVIDERS: PCP Internal Medicine; Visit Provider Internal Medicine
DX: Z12.31 Encounter for screening mammogram for malignant neoplasm of breast (principal)
CPT/HCPCS: 77063; 77067

== ENCOUNTER → 2025-01-05 12:30 | Outpatient (BNV) | payer MEDICAID, SELFPAY | PROVIDERS: PCP Internal Medicine; Visit Provider Internal Medicine | DX: Z12.31 Encounter for screening mammogram for malignant neoplasm of breast (principal) | CPT/HCPCS: 77063; 77067 ==

== ENCOUNTER 2025-01-06 08:27 | Outpatient (REF) | payer MEDICAID, SELFPAY ==
--- OUTSIDE RECORDS SUMMARY | 2025-01-06 08:37 | XMS_ITS | Encounter Summary ---
Author Organization [employer] Address [address] [facility] 7t [place] [address] Care Team Providers Care Deal Architect Name Role Phone Aria Cárdenas PRESSURE TESTING TECHNICIAN Primary Care Provider [phone]- [phone] Kristin Zavaleta MD Primary Care Provide r Marisol Helton PharmD Unavailable Encounter Details Date Type Department Care Team (Latest Contact Info) Description 11/03/2019 Abstract [facility] CONVERSIONS Dental, Provider, DDS Social [...] Description 01/23/2025 9:00 AM EDT Medication Management [facility] [address] [place], [place] [phone] Marisol Helton, PharmD [address] [place] [address] 02/04/2025 10:30 AM EDT Office Visit [facility] [address] [place], [place] [phone] Kristin Zavaleta MD [address] [place] [address] documented as of this encounter Visit Diagnoses Not on filedocumented in this encounter Care Teams Deal Architect Relationship Specialty Start Date End Date Aria Cárdenas FNP PCP - General Family Medicine 02/21/22 01/31/23 Kristin Zavaleta MD [address] [place] [address] PCP - General Internal Medicine 09/24/23 Marisol Helton, Maria ED [address] [place] [address] Pharmacist Internal Medicine 03/03/24 documented as of this encounter
--- OUTSIDE RECORDS SUMMARY | 2025-01-06 08:37 | XMS_ITS | Clinical Summary ---
Author Organization [facility] Address [address] [place] [address] Phone Care Team Providers Care Appraiser Real Estate Name Role Phone Kristin Zavaleta MD Primary [...] Upcoming Encounters Date Type Department Care Team ([facility] Contact Info) Description 01/21/2025 9:30 AM EDT Consult Orthopedic Surgery - [place] [phone] [phone] Mohamud Shannon DPM [address] [address] Health Maintenance Due Date Last Done Comments [...] topic Insurance MEDICAID - [place] Care Teams Appraiser Real Estate Relationship Specialty Start Date End Date Kristin Zavaleta MD [address] [place] [phone] PCP - General Internal Medicine 12/03/24
--- OUTSIDE RECORDS SUMMARY | 2025-01-06 08:37 | XMS_ITS | Encounter Summary ---
Author Organization [employer] Address 75 [facility] 7t [place] [address] Care Team Providers Care Ornamental Iron Erector Name Role Phone Aria Cárdenas TALK SHOW HOST Primary Care Provider [phone]- [phone] Kristin Zavaleta MD Primary Care Provide r Marisol Helton PharmD Unavailable [phone]- [phone] Encounter Details Date Type Department Care Team (Latest Contact Info) Description 05/22/2022 Abstract [facility] CONVERSIONS Dental, Provider, DDS Social History [...] Description 01/23/2025 9:00 AM EDT Medication Management [facility] [address] [place], [place] [phone] Marisol Helton, PharmD [address] [place] [address] 02/04/2025 10:30 AM EDT Office Visit [facility] [address] [place], [place] [phone] Kristin Zavaleta MD [address] [place] [address] documented as of this encounter Visit Diagnoses Not on filedocumented in this encounter Care Teams Ornamental Iron Erector Relationship Specialty Start Date End Date Aria Cárdenas FNP PCP - General Family Medicine 02/21/22 01/31/23 Kristin Zavaleta MD [address] [place] [phone] PCP - General Internal Medicine 09/24/23 Marisol Helton, Maria ED [address] [place] [phone] Pharmacist Internal Medicine 03/03/24 documented as of this encounter
--- OUTSIDE RECORDS SUMMARY | 2025-01-06 08:37 | XMS_ITS | Encounter Summary ---
Author Organization [employer] Address 75 [facility] 7t [place] [address] Care Team Providers Care Code Enforcement Officer Name Role Phone Aria Cárdenas GYRO MECHANIC Primary Care Provider [phone]- [phone] Kristin Zavaleta MD Primary Care Provide r Marisol Helton PharmD Unavailable +1- [phone] Encounter Details Date Type Department Care Team (Latest Contact Info) Description 12/22/2020 Abstract [facility] CONVERSIONS Dental, Provider, DDS Social [...] Description 01/23/2025 9:00 AM EDT Medication Management [facility] [address] [place], [place] [phone] Marisol Helton, PharmD [address] [place] [address] 02/04/2025 10:30 AM EDT Office Visit [facility] [address] [place], [place] [phone] Kristin Zavaleta MD [address] [place] [phone] documented as of this encounter Visit Diagnoses Not on filedocumented in this encounter Care Teams Code Enforcement Officer Relationship Specialty Start Date End Date Aria Cárdenas FNP PCP - General Family Medicine 02/21/22 01/31/23 Kristin Zavaleta MD [address] [place] [phone] PCP - General Internal Medicine 09/24/23 Marisol Helton, Maria ED [address] [place] [phone] Pharmacist Internal Medicine 03/03/24 documented as of this encounter
--- OUTSIDE RECORDS SUMMARY | 2025-01-06 08:38 | XMS_ITS | Clinical Summary ---
Author Organization [employer] Address [address] [facility] 7t [place] [address] Care Team Providers Care Supervisor Sawing And Assembly Name Role Phone Kristin Zavaleta MD Primary [...] complication, without long-term current use of insulin ([facility]) 1 each 3 times daily. 1 kit 024 Active Lancets 28G miscIndications :Type 2 diabetes mellitus with other specified complication, without long-term current use of insulin ([facility]) Test blood sugar three times daily 100 each 11 024 Active Alcohol Swabs (Alcohol Prep) 70 % pads USE TWICE DAILY BEFORE BREAKFAST AND ONCE 2 HOURS AFTER A MEAL 100 each 5 024 Active glucose (Glutose) 40 % gel oral gelIndications: Type 2 diabetes mellitus with other specified complication, without long-term current use of insulin ([facility]) Take 15 g by mouth if needed for low blood sugar. 45 g 11 024 Active atorvastatin (Lipitor) 40 MG tabletIndicatio ns:Dyslipidemia Take 1 tablet (40 mg) by mouth Once per day. 90 tablet 3 024 Active dapagliflozin (Farxiga) 10 MGIndications:T ype 2 diabetes mellitus with other specified complication, without long-term current use of insulin ([facility]) TAKE 1 TABLET BY MOUTH EVERY MORNING 90 tablet 3 024 Active escitalopram (Lexapro) 20 MG tablet TAKE 1 TABLET BY MOUTH EVERY MORNING FOR MOOD OR ANXIETY 025 Active glipiZIDE (Glucotrol) 5 MG tabletIndicatio ns:Type 2 diabetes mellitus with other specified complication, without long-term current use of insulin ([facility]) TAKE 1 TABLET BY MOUTH TWICE [...] complication, without long-term current use of insulin ([facility]) TEST BLOOD SUGAR THREE TIMES DAILY [...] complication, without long-term current use of insulin ([facility]) TAKE 1 TABLET TWICE DAILY IN [...] complication, without long-term current use of insulin ([facility]) INJECT 16 UNITS SUBCUTANEOUSLY ONCE DAILY 15 mL 3 Active B-D UF III MINI PEN NEEDLES 31G X 5 MM miscIndications :Type 2 diabetes mellitus with other specified complication, without long-term current use of insulin ([facility]) Use as directed with insulin administration [...] complication, without long-term current use of insulin ([facility]) Use as instructed 100 each 12 024 2024 metFORMIN (Glucophage) 500 MG tabletIndicatio ns:Type 2 diabetes mellitus with other specified complication, without long-term current use of insulin ([facility]) TAKE 1 TABLET BY MOUTH TWICE [...] complication, without long-term current use of insulin ([facility]) INJECT 16 UNITS SUBCUTANEOUSLY ONCE DAILY [...] Description 12/31/2024 9:40 AM EDT Office Visit [facility] [address] [place] [address] Thumb pain, right (Primary Dx) 12/26/2024 Travel 12/18/2024 Refill [facility] [address] [place] [address] Kristin Zavaleta MD Vitamin D deficiency; Iron deficiency anemia due to chronic blood loss; Type 2 diabetes mellitus with other specified complication, without long-term current use of insulin ([facility]) 11/19/2024 Travel 11/11/2024 Telephone [facility] [address] [place] [address] Kristin Zavaleta MD 11/03/2024 2:30 PM EDT Office Visit [facility] [address] [place] [address] Kristin Zavaleta MD Screening for colon cancer (Primary Dx); Type 2 diabetes mellitus with other specified complication, without long-term current use of insulin ([facility]); Encounter for screening mammogram for malignant neoplasm of breast; White coat syndrome with diagnosis of hypertension; Type 2 diabetes mellitus with hyperglycemia, with long-term current use of insulin (CMS/HCC) 11/03/2024 Travel 10/31/2024 Population Health [facility] () Department [address] [place] [phone] Provider, Population Health Generic 10/28/2024 Refill [facility] [address] [place] [address] Kristin Zavaleta MD 10/24/2024 Patient Outreach [facility] [address] [place] [address] Kristin Zavaleta MD Pre-visit Planning ((Unable to reach for PVP screening and or LVM)) 10/20/2024 Refill [facility] [address] [place] [address] Kristin Zavaleta MD Vitamin C deficiency 10/15/2024 [...] Description 01/23/2025 9:00 AM EDT Medication Management [facility] [address] [place] [phone] Marisol Helton, PharmD [address] [place] [phone] 02/04/2025 10:30 AM EDT Office Visit [facility] [address] [place] [phone] Kristin Zavaleta MD [address] [place] [address] Health Maintenance Due Date Last Done Comments [...] pressure once per day Blood Pressure No Geremiass-Marisol Merritt PharmD Blood Pressure < 140/90 Blood Pressure 140/89(2024 9:29 AM EDT) No Carito-Marisol Merritt PharmD Take your medication every day Lifestyle [...] AM EDT Narrative 12/31/2024 11:11 AM EDT ?[facility] ?[address] ?[place] [address] ?XRay Report ? Signed ? Patient: Urena Rivero,Rosey E ?M ?? R#: [id number] ? : 1980 ?Acct:[id number] ? Age/Sex: 44 / F ?ADM Date: 05/14/25 ? Loc: HO.HHCX ? Attending Dr: Leticia Salazar DO ? Ordering Physician: Leticia Salazar DO ?? Date of Service: 12/31/24 ?? Procedure(s): XR finger RT min 2V ?? Accession Number(s): [id number] ? cc: Leticia Salazar DO ? EXAMINATION: [...] DD/ 1020 ? TD/TT: 12/31/24 1025 ? Director Occupational: ? Procedure Note Rafaela, Image - 01/05/[address] [address] XRay Report Signed Patient: Rosey Osborne R#: [id number] : 1980Acct:[id number] Age/Sex: 44 / FADM Date: 12/31/24 Loc: HO.HHCX Attending Dr: Leticia Salazar DO Ordering Physician: Leticia Salazar DO Date of Service: 12/31/24 Procedure(s): XR finger RT min 2V Accession Number(s): [id number] cc: Leticia Salazar DO EXAMINATION: XR THUMB, [...] 12/31/24 1108 DD/ 1020 TD/TT: 12/31/24 1025 Director Occupational: Result [facility] Leticia Salazar DO IMG XR PROCEDURES Edited Res ult - Final * (ABNORMAL) POCT A1C (12/26/2024 9:18 AM [...] EDT) Hepatitis C Antibody Nonreactive Nonreactive [facility] Comment:Antibodies to HCV no t detected; does not exclude early acuteHCV infection. Blood Venous blood specimen / Unknown 03/14/2024 8:30 AM EDT 03/14/2024 11:14 AM EDT us Kristin Sims MD LAB BLOOD ORDERABLES Final Result [facility] [address] [place] [phone] * Lipid Panel, Standard (03/14/2024 8:30 AM EDT) Triglycerides 49 <150 mg/dL [facility] Comment:Desirable Triglyceri de: less than 150 mg/dLBorderline High Triglyceride 150-199 mg/dLHigh Triglyceride: 200-499 mg/dLVery High Triglyceride: greater than or equal to 5OO mg/dL Cholesterol 146 <200 mg/dL [facility] Comment:Desirable Cholestero l: less than 200 mg/dLBorderline High Cholesterol: 200-239 mg/dLHigh Cholesterol: greater than 239 mg/dL LDL Cholesterol Calculated 86 <100 mg/dL [facility] Comment:Desirable LDL: less than 100 mg/dLNear Optimal/Above Optimal LDL: 110- 129 mg/dLBorderline High LDL: 130-159 mg/dLHigh LDL: 160-189 mg/dLVery High LDL: greater than or equal to 190 mg/dL HDL Cholesterol 51 >40 mg/dL [facility] Comment:Desirable HDL: great er than 40 mg/dL Note: This HDL assay may give artificially low results in patients with liver disease. Blood Venous blood specimen / Unknown 03/14/2024 8:30 AM EDT 03/14/2024 11:14 AM EDT us Kristin Sims MD LAB BLOOD ORDERABLES Final Result [facility] [address] [place] [phone] * BI Mammogram Screening Tomosynthesis Bilateral (01/02/2024 8:55 AM EDT) Anatomical Region Laterality Modality Breast Bilateral Mammography 01/02/2024 8:55 AM EDT Narrative 02/01/2024 6:14 AM EDT ? [facility] ? [address] ?[place] [address] ? Mammography Report ? Signed ? Patient: Rosey Osborne ?M ?? R#: [id number] ? : 1980 ?Acct:[id number] ? Age/Sex: 43 / F ?ADM Date: 01/02/24 ? Loc: HO.MAMMO ? Attending Dr: Jackie Ovalle ? Ordering Physician: Jackie Ovalle ? Results: 2Benign F ?? indings ? Date of Service: 01/02/24 ?Follow Up: 1 Year From Orig ?? inal Mammogram ? Procedure(s): MM tomosynthesis screening BI ?? Accession Number(s): [id number] ? cc: Jackie Ovalle ; Kristin Zavaleta [...] 0611 ? DD/ 0855 ? TD/TT: ? Director Occupational: ? Procedure Note Gaaythri Russo - 02/01/2024 [facility] [address] [place] [address] Dr. [place], [place] [address] Mammography Report Signed Patient: Ayanna JensengadoRosey SUN R#: [id number] : 1980Acct:[id number] Age/Sex: 43 / FADM Date: 01/02/24 Loc: HO.MAMMO Attending Dr: Jackie Ovalle Ordering Physician: Jackie OvalleResults: 2Benign F indings Date of Service: 01/02/24Follow Up: 1 Year From Orig ina Mammogram Procedure(s): MM tomosynthesis screening BI Accession Number(s): [id number] cc: Jackie Ovalle ; Kristin Zavaleta MD [...] in OV> 02/01/24 0611 DD/ 0855 TD/TT: Director Occupational: [facility] External Provider IMG BI PROCEDURES Edited Result - Final * Image-Guided Pap with Age-Based Screening Protocols (11/13/2022 11:40 AM EDT) Comment [facility] Comment: This order for age-based cervical cancer and STI screening follows ACOG guidelines(PB 168, 140, FTV247). See individual assays for performing site location. Clinical Information: None given [facility] LMP: NONE GIVEN [facility] Prev. PAP: NONE GIVEN [facility] Prev. BX: NO [facility] SOURCE: None given [facility] Statement Of Adequacy: [facility] Comment: Satisfactory for evaluation. Endocervical/transformation zone component present. Interpretation/ Result: Negative for intraepithelial lesion or malignancy. [facility] COMMENT: [facility] Comment: This case could not be evaluated with computer assisted technology. The slide was manually screened according to routine procedures. Cytotechnologis t: [facility] Comment: MXD, CT (ASCP) CT screening location: [address] ??[address] Review Cytotechnologis t: [facility] Comment: GSG, CT(ASCP) CT screening location: [address] ??[address] (Always Message) [facility] Comment: EXPLANATORY NOTE: The Pap is a [...] HPV nRNA E6/E7 Not Detected Not Detected [email or web address] Comment: Methodology: [employer] Manager-Mediated Amplification This assay detects E6/E7 viral messenger RNA (mRNA) from 14 high-risk HPV types (16,18,31,33,35,39,45,51,52,56,58,59,66,68). Cervical sources are required for HPV testing. If a vaginal source from a patient who has had a total hysterectomy with removal of cervix was submitted, please contact the testing laboratory for alternative testing options. For additional information, please refer to http://education.[employer]/faq/ZKY512v2 (This link if provided for information/ educational purposes only.) Cytology specimen container (physical object) 11/13/2022 11:40 AM EDT 11/14/2022 9:49 AM EDT Prerna Meehan [facility] LAB BLOOD ORDERABLES Corrina l Result [facility] [address], [place] [address] [facility] [address] [place] [phone] * HIV AB/AG (09/17/2019 9:25 AM EST) [...] detection of this assay. ?? The [employer] Fleet Supervisor HIV Ag/Ab Combo assay result and supplemental assay results should be interpreted in conjunction with the patient's clinical presentation, history and other laboratory results. ??If the results are inconsistent with clinical evidence, additional testing is suggested to confirm the result. 09/17/2019 9:25 AM EST Mary Caballero LEVEL VIAL SETTER HISTORICAL/NON ORDERABLE LA BS Final Result Performing Organization Address City/[facility]/ZIP Co de Phone Number [facility] [address] * MICROALBUMIN, RANDOM (09/17/2019 9:19 AM EST) CREATININE, RANDOM URINE 85.34 MG/DL [facility] MICALB/CRE RATIO RANDOM URINE 36.3 ug/mg cr [facility] Comment: ?Albumin/Creatinine Ratio Reference Ranges: ? Normal: < 30 ug/mg creatinine ? Microalbuminuria: ??30 - 300 ug/mg creatinine Clinical Albuminuria: ??> 300 ug/mg creatinine MICROALBUMIN, RANDOM URINE 31.0 MG/L [facility] 09/17/2019 9:19 AM EST us Mary Caballero LEVEL VIAL SETTER HISTORICAL/NON ORDERABLE LA BS Final Result [facility] [address] [place] [address], from Last 3 Months or Most Recently Relevant to Health Maintenance Insurance [facility] MEDICAID STAND ADULT Care Teams Supervisor Sawing And Assembly Relationship Specialty Start Date End Date Kristin Zavaleta MD [address] [place] [address] PCP - General Internal Medicine 09/24/23 Marisol Helton, Bruno [address] [place] [address] Pharmacist Internal Medicine 03/03/24
[2025-01-06 11:42] LABS: MANUAL DIFF FLAG NO
[2025-01-06 12:03] LABS: Basophils Absolute Auto 0.1 X10*3/uL (0.0-0.2); Basophils Percent Auto 0.8 % (0-2); Eosinophils Percent Auto 0.3 % (0-4); Hematocrit 38.1 % (37.0-47.0); Hemoglobin 12.2 g/dl (12.0-16.0); Imm Gran Abs Auto 0.03 X10*3/uL (0.00-0.03); Imm Gran Pct Auto 0.5 % (0.0-0.4); Lymphocytes Absolute Auto 0.9 X10*3/uL (1.2-4.9); Lymphocytes Percent Auto 14.7 % (20-40); Mean Corpuscular Hemoglobin 29.8 pg (27.0-33.0); Mean Corpuscular Volume 93.2 fL (80.0-98.0); Mean Platelet Volume 13.7 fL (9.4-12.3); Monocytes Absolute Auto 0.3 X10*3/uL (0.1-1.2); Monocytes Percent Auto 5.3 % (2-11); Neutrophils Percent Auto 78.4 % (45-73); Platelet Count 184 X10*3/uL (160-400); Red Blood Count 4.09 X10*6/uL (4.20-5.50); Red Cell Distribution Width 12.6 % (11.0-16.0); White Blood Count 6.4 X10*3/uL (4.8-10.8)
[2025-01-06 12:19] LABS: Alanine Aminotransferase 23 U/L (0-31); Albumin Level 4.1 g/dL (3.5-5.0); Alkaline Phosphatase 61 U/L (39-117); Anion Gap 10 (12-20); Aspartate Amino Transferase 18 U/L (5-31); Bilirubin Direct 0.2 mg/dL (0.0-0.5); Bilirubin Total 0.4 mg/dL (0.0-1.0); Blood Urea Nitrogen 24 mg/dL (9-16); Calcium 9.2 mg/dL (8.4-10.2); Carbon Dioxide 26 mmol/L (22-29); Chloride 104 mmol/L (96-108); Cholesterol 141 mg/dL (<200); Estimated Glomerular Filt Rate > 60; Glucose Random 154 mg/dL (60-115); HDL Cholesterol 53 mg/dL (>40); LDL Cholesterol Calculated 81 mg/dL (<100); Potassium 3.9 mmol/L (3.3-5.1); Sodium 136 mmol/L (135-145); Total Protein 8.1 g/dL (6.5-8.0); Triglycerides 39 mg/dL (<150)
[2025-01-06 12:38] LABS: TSH reflex Free T4 2.12 uIU/mL (0.32-4.0); Vitamin D 25-OH Total 38.6 ng/mL (>30)
[2025-01-06 12:40] LABS: HIV AB/AG Nonreactive (Nonreactive); HIV Num 1 0.05 S/CO (0.00-0.99); ~HepC Num1 0.24 S/CO (0.00-0.79); ~Hepatitis C Antibody Nonreactive (Nonreactive)
[2025-01-06 12:43] LABS: Vitamin B12 1732 pg/mL (200-900)
== END 2025-01-06 08:28 | disposition home or self-care (01) ==
LOC: HO.HHCL 08:27
PROVIDERS: Visit Provider Internal Medicine
DX: Z11.4 Encounter for screening for human immunodeficiency virus [HIV] (principal); E11.69 Type 2 diabetes mellitus with other specified complication; E78.5 Hyperlipidemia, unspecified
CPT/HCPCS: 36415; 80053; 80061; 82248; 82306; 82607; 84443; 85025; 86803; 87389

== ENCOUNTER 2025-04-07 09:19 | Outpatient (REF) | payer MEDICAID, SELFPAY ==
--- NOTE | ~2025-04-07 | XR_ITS ---
EXAMINATION: XR HAND, RIGHT CLINICAL INFORMATION: M79.641 - Pain in right hand , attention thumb COMPARISON: None available. TECHNIQUE: PA, lateral, and oblique views of the right hand. FINDINGS: Marginal erosions are evident involving the head and neck region of the fourth and fifth proximal phalanges and second digit middle phalanges. There is also evidence of mature periosteal new bone formation involving the neck of the fourth and fifth proximal phalanges. There is possible marginal erosion involving the ulnar base of the fifth metacarpal. There is no acute fracture or deformity. XR/XR hand RT min 3V IMPRESSION: There are erosive change suggesting inflammatory arthropathy such as psoriatic or rheumatoid arthritis. No acute abnormality. Unremarkable thumb. Electronically signed by: Darinel Bai MD 04/07/2025 10:40 AM EDT
== END 2025-04-07 09:20 | disposition home or self-care (01) ==
LOC: HO.HOSX 09:19
PROVIDERS: Visit Provider Orthopaedic Surgery
DX: M65.311 Trigger thumb, right thumb (principal); E11.9 Type 2 diabetes mellitus without complications; M79.641 Pain in right hand
CPT/HCPCS: 73130; 99202

== ENCOUNTER 2025-04-07 10:26 | Outpatient (AMB) | payer MEDICAID, SELFPAY ==
--- NOTE | 2025-04-07 10:38 | MHC.OFFVIS ---
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 Patient was last seen at [facility] with Dr Kristin Sims. Xrays showed suspected periarticular erosions and possible inflammatory arthropathy. Per referral patient was referred to rheumatology as well. Patient explains pain is triggered with gripping, pinching, and using a scissor. No injury. Denies numbness or tingling. Patient states her thumb locks and is painful to wrist. She is taking Naproxen and using diclofenac gel. 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 She also complains of painful locking of her thumb, which she says radiates to her wrist, and she is having difficulty trying to extend her thumb. She says her symptoms began in December while she was writing. She says she did have some difficulty with painful locking of her thumb even last week, but now she can not bend the thumb at the IP joint. She was seen by her PCP and X-rays were taken, which were suggestive of possible Rheumatoid inflammation. She says she has been seen by a Sewing Trimmer in [place], but she did not have an director multimedia present and she found this appointment not particularly helpful. She says they did not take her blood for testing. She denies any numbness or tingling. 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 Reproductive History Menstrual Age of Menarche: 11 Review of Systems Const All systems reviewed & are unremarkable except as noted in HPI and below Physical Exam Vital Signs: BMI result Body Mass Index 25.7 Const General: cooperative, healthy appearing and no acute distress Orientation/consciousness: patient oriented x3 HEENT Head: Yes normocephalic and Yes atraumatic Eyes EOM: EOMs intact bilaterally Resp Effort & Inspection: normal respiratory effort and able to speak in complete sentences Cardio Jugular venous distension: no JVD Skin General skin exam: turgor normal Rashes: no rashes Neuro General: patient oriented x3 Extrem Other: Evaluation of Right Upper Extremity: The patient is alert, oriented, and in no acute distress Neuro: Median, Ulnar, Radial nerves motor and sensory intact and sensation is normal to the tips of all digits Vascular: Cap refill brisk ROM: She can make a fist and extend all her digits No active flexion of the thumb IP joint Good passive IP joint range of motion Tender over the thumb a1 gonzalez Skin: No lacerations or abrasions. General: No Ecchymosis. No Erythema or evidence of infection. Most tender over A1 gonzalez of the thumb No tenderness over the 1st dorsal compartment or MCP joint Negative Reyna test Radiographs: 3 views of the right hand were taken and viewed by me today in clinic. They show no fractures or dislocations. There are erosive arthritic changes to the head of the ring & small finger proximal phalanxes, consistent with possible inflammatory arthritis. Psych Appearance: grossly normal Affect: normal affect Attitude: cooperative Assessment & Plan Assessment & Plan (1) Trigger thumb of right hand: Code(s): M65.311 - Trigger thumb, right thumb Category: Medical (2) Diabetes mellitus: Code(s): E11.9 - Type 2 diabetes mellitus without complications Category: Medical (3) Suspected inflammatory arthritis: Comment: R hand Code(s): R29.91 - Unspecified symptoms and signs involving the musculoskeletal system Category: Medical Plan Assessment & Plan: 1. Right thumb locked in extension Possible locked trigger thumb vs FPL tendon rupture 2. Right ring & small fingers probably inflammatory arthritis I educated her about these conditions. I discussed operative and non-operative treatment options. I explained that this may be a possible tendon rupture to her thumb secondary to her inflammatory condition, which would be unrepairable, but I recommend surgery in case this is a locked trigger thumb The patient would like to proceed with surgery I referred her to our Rheumatology department to assess for inflammatory conditions I discussed activity modification, they should limit or avoid any heavy or repetitive pinching or gripping activities She was fitted for a comfort cool brace to wear with daily activity She should work on ROM exercises, and avoid any gripping or strengthening activities I discussed the use of assistive devices for daily activity The risks and benefits of operative treatment were discussed with the patient and the patient wishes to proceed with surgery. These risks include, but are not limited to risk of damage to blood vessels, nerves, tendons, infection, recurrence, incomplete relief of preoperative symptoms, persistent pain, possible need for further surgery and the risks associated with regional blocks and anesthesia. The plan is to take the patient to the operating room sometime in the next few weeks for the following procedures: 1. Right thumb trigger release & evaluation of flexor tendon, under local All of the preoperative paperwork including the consent was reviewed today. All the patient's questions were answered. The patient understands that they will be contacted by our marksmanship instructor soon to schedule this procedure She denies blood thinners, asthma, heart, lung, kidney issues She is a Diabetic. They will need an updated HgA1c that is <8.1% in order to proceed with surgery, and they expressed understanding Scribed for Kadi Del Rio MD by Zelalem Brasher, medical appointment scheduler, on 04/07/25 at 11:45 AM, EST. Orders: Orders XR hand RT min 3V Today M79.641 - Pain in right hand Referrals Rheumatology Referral R29.91 - Unspecified symptoms and signs involving the musculoskeletal system Coding Level of Care Code New Pt Level 4 (52936) Diagnoses Trigger thumb of right hand M65.311 Diabetes mellitus E11.9 Suspected inflammatory arthritis R29.91
[2025-04-07 10:58] VITALS: BMI 25.7
--- OUTSIDE RECORDS SUMMARY | 2025-04-07 11:47 | XMS_ITS | Clinical Summary ---
Author Organization [address] [facility] Address [address] [place] [address] Phone Care Team Providers Care Special Education Bus Driver Name Role Phone Kristin Zavaleta MD Primary Care Provide r Encounters Date Type Department Care Team Description 01/21/2025 9:30 AM EDT Consult Orthopedic [facility] [address] [address] Mohamud Shannon DPM Type 2 diabetes mellitus with other specified complication, without long-term current use of insulin ([facility] V24, [facility] V28) from Last 3 Months Social History Tobacco Use Types Packs/Day Years Used Date Smoking Tobacco: Never Assessed Comments Unknown Sex and Gender Information Value Date Recorded Sex Assigned at Not on file Legal Sex Female 3:52 PM EDT Gender Identity Not on file Sexual Orientation Not on file Plan of Treatment Upcoming Encounters Date Type Department Care Team ([facility] st Contact Info) Description 01/21/2026 8:30 AM EDT Office Visit Orthopedic Surgery [facility] [address] [phone] Mohamud Shannon DPM [address] [address] Health Maintenance Due Date Last Done Comments Breast Cancer Screening 1978 Diabetes: Annual Foot Exam 1988 Diabetes: Annual Retina Eye Exam 1988 Pneumococcal Vaccine: Pediatrics (0 to 5 Years) and At-Risk Patients (6 to 49 Years) (1 of 2 - PCV) 1997 Cervical Cancer Screening: P ap Smear 1999 COVID-19 Vaccine (2023-2 5 season) 2024 Depression Screening 08/20/2024 Colorectal Cancer Screening: Colonoscopy 12/04/2024 Diabetes: Annual Urine Albumin-Creatinine Ratio (uACR) 12/04/2024 Social Influencers of Health Screening 12/04/2024 Influenza Vaccine (#1) 2025 4, 06/09/2020, 10/08/2019 Diabetes: Blood Sugar Contro l Test (HGBA1C) 06/28/2025 12/26/2024 Diabetes: Annual GFR (Glomerular Filtration Rate) 01/06/2026 01/06/2025 Hypertension/CHF/CAD Annual BMP Blood Test 01/06/2026 01/06/2025 DTaP,Tdap,and Td Vaccines (2 - Td or Tdap) 10/08/2029 10/08/2019 Cholesterol Screening (Lipid Panel) 01/06/2030 01/06/2025 Hepatitis B Vaccines Completed 06/03/2024, 06/09/2020, 10/08/2019 HIV Screening Completed 01/06/2025 Hepatitis C Screening Completed 01/06/2025 HIB Vaccines Aged Out No longer eligi [...] to complete this topic RSV Immunization Patients Under 20 months Aged Out No longer eligible b ased on patient's age to complete this topic Varicella Vaccines Aged Out No longer eligible based on patient's age to complete this topic Insurance MEDICAID - [place] Care Teams Special Education Bus Driver Relationship Specialty Start Date End Date Kristin Zavaleta MD [address] [place] [phone] PCP - General Internal Medicine 12/03/24
--- OUTSIDE RECORDS SUMMARY | 2025-04-07 11:47 | XMS_ITS | Encounter Summary ---
Author Organization [employer] Address [address] [facility] 7 [place] [address] Care Team Providers Care Designer And Patternmaker Name Role Phone Aria Cárdenas Primary Care Provider Kristin Gallego MD Primary Care Provide r Marisol Helton PharmD Unavailable [phone] Encounter Details Date Type Department Care Team (Latest Contact Info) Description 05/22/2022 Abstract [facility] CONVERSIONS Dental, Provider, DDS Social History Tobacco Use Types Packs/Day Years Used Date Smoking Tobacco: Never Assessed Comments Unknown Sex and Gender Information Value Date Recorded Sex Assigned at Female 06/19/2022 10:36 AM EDT Legal Sex Female 10:36 AM EDT Gender Identity Female 06/19/2022 10:36 AM EDT Sexual Orientation Straight 06/19/2022 10 :36 AM EDT documented as of this encounter Plan of Treatment Not on file documented as of this encounter Visit Diagnoses Not on filedocumented in this encounter Care Teams Designer And Patternmaker Relationship Specialty Start Date End Date Aria Cárdenas FNP PCP - General Family Medicine 02/21/22 01/31/23 Kristin Zavaleta MD [address], [place] [phone] PCP - General Internal Medicine 09/24/23 Marisol Helton, PharmD [address], [place] [phone] Pharmacist Internal Medicine 03/03/24 documented as of this encounter
== END 2025-04-07 12:15 | disposition home or self-care (01) ==
LOC: HO.HOS 10:27
PROVIDERS: PCP Internal Medicine; Visit Provider Orthopaedic Surgery
DX: M65.311 Trigger thumb, right thumb (principal); E11.9 Type 2 diabetes mellitus without complications; R29.91 Unspecified symptoms and signs involving the musculoskeletal system
CPT/HCPCS: 99204

== ENCOUNTER → 2025-04-07 10:29 | Outpatient (BNV) | payer MEDICAID, SELFPAY | PROVIDERS: Visit Provider Radiology Diagnostic Radiology | DX: M79.641 Pain in right hand (principal); M13.841 Other specified arthritis, right hand | CPT/HCPCS: 73130 ==

== ENCOUNTER 2025-04-09 13:02 | Outpatient (AMB) | payer MEDICAID, SELFPAY ==
[2025-04-09 13:07] VITALS: BP 110/66; PULSE 104; O2SAT 98; BMI 25.6
--- NOTE | 2025-04-09 13:07 | A.OFFVIS_ITS ---
Vital Signs 04/09/25 13:07 Height 5 ft 3 in Weight 144 lb 6.444 oz BMI 25.6 BP 110/66 Blood Pressure Location Lt brachial Pulse 104 H Pulse Source Pulse Oximeter Pulse Oximetry (%) 98 Intake Visit Reasons: periarticular erosions RT ring finger/ Urgent appt Intake Note: Patient presents for periarticular erosions of right ring and pinky finger is painful, too. Landscaping Crew Leader Required: Yes Landscaping Crew Leader Name: burke [phone] Allergies No Known Allergies Allergy (Verified 04/09/25 13:14) HPI Comments Details: Patient is a 44 year old female with HLD, DM, Hypothyroidism, and depression here today for evaluation of joint pain with XRs showing erosions Bilateral hand pain since December 2024 Not associated stiffness or swelling Does note some cramping but no other sx No other joints affected No history of transient monoarticular arthritis affecting the great toes, knees, wrists or any other joints Family hx - no known family of autoimmune disease or connective tissue disease PFSH Medical History (Updated 04/07/25 @ 11:56 by Zelalem Brasher) Fibroadenoma of breast Diabetes mellitus Hypertension Thyroid disease Left breast mass Surgical History History of breast biopsy Social History (Updated 04/07/25 @ 11:06 by GUZMAN Monteiro) Current occupational status: disabled 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 Reproductive History Menstrual Age of Menarche: 11 Review of Systems Const Details: Review of Systems Constitutional: Denies fever, chills, weight loss ENT: Denies vision changes, eye pain or eye redness, dental caries, dry mouth GI: Denies nausea, vomiting, diarrhea, abdominal pain, change in BM Pulm: Denies SOB, RAZA, hemoptysis, wheezing Cards: Denies chest pain, palpitations Skin: Denies Raynaud's, rash, nail changes, photosensitivity, COLLECTIONS ASSOCIATE: Denies headaches, weakness, paresthesias, recurrent falls MSK: as per HPI All other systems reviewed and are unremarkable except noted above Physical Exam Exam Exam: Vital signs reviewed Physical Examination CONSTITUITIONAL Patient alert and cooperative. Well appearing and in no apparent painful distress MSK Hands * Right Hand: Able to make a fist. Swelling of the 5th digit with TTP of the PIP * Left Hand: Able to make a fist. No swelling or tenderness to palpation of these joints. No deformities noted. Wrists * Right Wrist: Full ROM. 70 degrees of wrist flexion, 80 degrees of wrist extension. No swelling or TTP * Left Wrist: Full ROM. 70 degrees of wrist flexion, 80 degrees of wrist extension. No swelling or TTP Elbows * Right Elbow: Full ROM. No swelling or TTP. No TTP of the medial and lateral epicondyles * Left Elbow: Full ROM. No swelling or TTP. No TTP of the medial and lateral epicondyles Shoulders * Right shoulder: Full ROM. No swelling noted. No TTP of the AC joint, subacromial bursa or posterior shoulder * Left shoulder: Full ROM. No swelling noted. No TTP of the AC joint, subacromial bursa or posterior shoulder Knees * Right knee: Full ROM. No swelling noted. No TTP of the knee joint lie or pes anserine bursa * Left knee: Full ROM. No swelling noted. No TTP of the knee joint lie or pes anserine bursa. Ankles * Right ankle: Good ankle dorsiflexion and plantar flexion. No swelling. No TTP of the ankle joint * Left ankle: Good ankle dorsiflexion and plantar flexion. No swelling. No TTP of the ankle joint Feet * Right foot: Negative squeeze test * Left foot: Negative squeeze test Tender points? * No tenderness to palpation of the bilateral trapezius, supraspinatus, anterior costochondral junctions, bilateral suboccipital muscle insertions SKIN No rashes No Tophi Vital Signs: Last Vital Signs Pulse 104 H 04/09/25 13:07 BP 110/66 04/09/25 13:07 Pulse Ox 98 04/09/25 13:07 BMI result Body Mass Index 25.6 Results Reviewed Results Reviewed: Laboratory Tests 01/06/25 08:30 WBC 6.4 RBC 4.09 L Hgb 12.2 Hct 38.1 Plt Count 184 Sodium 136 Potassium 3.9 Chloride 104 Carbon Dioxide 26 BUN 24 H Creatinine 0.74 AST 18 ALT 23 25-OH Vitamin D Total 38.6 XR Right Hand 03/2025 FINDINGS: Marginal erosions are evident involving the head and neck region of the fourth and fifth proximal phalanges and second digit middle phalanges. There is also evidence of mature periosteal new bone formation involving the neck of the fourth and fifth proximal phalanges. There is possible marginal erosion involving the ulnar base of the fifth metacarpal. There is no acute fracture or deformity. IMPRESSION: There are erosive change suggesting inflammatory arthropathy such as psoriatic or rheumatoid arthritis. No acute abnormality. Unremarkable thumb. Assessment & Plan Assessment & Plan (1) Crystal-induced arthritis and synovitis: Code(s): M11.9 - Crystal arthropathy, unspecified; M65.80 - Other synovitis and tenosynovitis, unspecified site Plan: #?Crystalline arthritis Patient is a 44 y.o. female with XRs showing rat bite type erosions of the fifth digit. Differentials: RA, gout, CPPD, PsA Plan - Check RF, CCP, HLA B27, CBC, CMP, ESR, CRP, Uric acid, Magnesium, Phosphorus, PTH - RTC 2 weeks Plan I spent 45 minutes reviewing the record and labs, taking a history, examining the patient, discussing the treatment plan, ordering diagnostic work up and documenting in the medical record Orders: Orders Cyclic Citrullinated Peptide Today M11.9 - Crystal arthropathy, unspecified, M65.80 - Other synovitis and tenosynovitis, unspecified site Parathyroid Hormone Intact Today M11.9 - Crystal arthropathy, unspecified, M65.80 - Other synovitis and tenosynovitis, unspecified site Erythrocyte Sedimentation Rate Today Z79.899 - Other intermediate (current) drug therapy C Reactive Protein Today Z79.899 - Other ferry terminal supervisor (current) drug therapy Complete Blood Count Auto Diff Today Z79.899 - Other intermediate (current) drug therapy Rheumatoid Factor Today M11.9 - Crystal arthropathy, unspecified, M65.80 - Other synovitis and tenosynovitis, unspecified site Uric Acid Today M11.9 - Crystal arthropathy, unspecified, M65.80 - Other synovitis and tenosynovitis, unspecified site Magnesium Today M11.9 - Crystal arthropathy, unspecified, M65.80 - Other synovitis and tenosynovitis, unspecified site Phosphorus Today M11.9 - Crystal arthropathy, unspecified, M65.80 - Other synovitis and tenosynovitis, unspecified site HLA B27 Today R29.91 - Unspecified symptoms and signs involving the musculoskeletal system Comprehensive Met. Panel Today Z79.899 - Other intermediate (current) drug therapy Coding Level of Care Code New Pt Level 4 (81941) Complex EM visit Add On G2211 Diagnoses Crystal-induced arthritis and synovitis M11.9; M65.80
--- OUTSIDE RECORDS SUMMARY | 2025-04-09 13:17 | XMS_ITS | Encounter Summary ---
Author Organization [id number] Address [address] [facility] 7 [place] [address] Care Team Providers Care Chicken Catcher Name Role Phone Aria Cárdenas Primary Care Provider Kristin Gallego MD Primary Care Provide r Marisol Helton PharmD Unavailable [phone] Encounter Details Date Type Department Care Team (Latest Contact Info) Description 05/22/2022 Abstract [facility] CONVERSIONS Dental, Provider, DDS Social History [...] on filedocumented in this encounter Care Teams Chicken Catcher Relationship Specialty Start Date End Date Aria Cárdenas FNP PCP - General Family Medicine 02/21/22 01/31/23 Kristin Zavaleta MD [address] [place], [place] [phone] PCP - General Internal Medicine 09/24/23 Marisol Helton, PharmD [address], [place] [phone] Pharmacist Internal Medicine 03/03/24 documented as of this encounter
--- OUTSIDE RECORDS SUMMARY | 2025-04-09 13:17 | XMS_ITS | Clinical Summary ---
Author Organization 175 [facility] Address [address] [place] [address] Phone Care Team Providers Care Table Runner Name Role Phone Kristin Zavaleta MD Primary Care Provide r Encounters Date Type Department Care Team Description 01/21/2025 9:30 AM EDT Consult Orthopedic [facility] [address] [phone] Mohamud Shannon DPM Type 2 diabetes mellitus with other specified complication, without long-term current use of insulin ([facility] V24, [facility] V28) from Last 3 Months Social History Tobacco Use Types Packs/Day Years Used Date Smoking Tobacco: Never Assessed Comments Unknown Sex and Gender Information Value Date Recorded Sex Assigned at Not on file Legal Sex Female 3:52 PM EDT Gender Identity Not on file Sexual Orientation Not on file Plan of Treatment Upcoming Encounters Date Type Department Care Team ([facility] st Contact Info) Description 01/21/2026 8:30 AM EDT Office Visit Orthopedic Surgery [facility] [address] [phone] Mohamud Shannon DPM [address] [address] Health Maintenance Due Date Last Done Comments [...] topic Insurance [place]ICA[place] - [place] Care Teams Table Runner Relationship Specialty Start Date End Date Kristin Zavaleta MD [address] [place] [phone] PCP - General Internal Medicine 12/03/24
== END 2025-04-09 14:09 | disposition home or self-care (01) ==
LOC: HO.RHES 13:03
PROVIDERS: Visit Provider Student in an Organized Health Care Education/Training Program
DX: M11.9 Crystal arthropathy, unspecified (principal); M65.80 Other synovitis and tenosynovitis, unspecified site
CPT/HCPCS: 99204

== ENCOUNTER 2025-04-09 13:02 | Outpatient (REF) | payer MEDICAID, SELFPAY ==
[2025-04-09 18:17] LABS: Magnesium 1.9 mg/dL (1.6-2.6); Uric Acid 2.1 mg/dL (2.4-5.7)
[2025-04-09 18:47] LABS: Parathyroid Hormone Intact 49.1 pg/mL (8.7-77.1)
[2025-04-15 13:08] LABS: HLA B27 Negative (Negative)
== END 2025-04-09 13:03 | disposition home or self-care (01) ==
LOC: HO.HKASLDS 13:02
PROVIDERS: Visit Provider Student in an Organized Health Care Education/Training Program
DX: M65.80 Other synovitis and tenosynovitis, unspecified site (principal); M11.9 Crystal arthropathy, unspecified; R29.91 Unspecified symptoms and signs involving the musculoskeletal system; Z79.899 Other long term (current) drug therapy
CPT/HCPCS: 36415; 83735; 83970; 84100; 84550; 86200; 86431; 86812; 99202

== ENCOUNTER 2025-05-08 10:33 | Outpatient (REF) | payer MEDICAID, SELFPAY ==
--- OUTSIDE RECORDS SUMMARY | 2025-05-08 11:11 | XMS_ITS | Clinical Summary ---
Author Organization 175 [facility] Address [address] [place] [address] Phone Care Team Providers Care Mobile Patrol Officer Name Role Phone Kristin Zavaleta MD Primary [...] Upcoming Encounters Date Type Department Care Team ([facility] Contact Info) Description 01/21/2026 8:30 AM EDT Office Visit Orthopedic Surgery [place] [address] [phone] Mohamud Shannon DPBrian [address] [phone] Health Maintenance Due Date Last Done Comments Breast Cancer Screening 1978 Diabetes: Annual Foot Exam 1988 Diabetes: Annual Retina Eye Exam 1988 Pneumococcal Vaccine: Pediatrics (0 to 5 Years) and At-Risk Patients (6 to 49 Years) (1 of 2 - PCV) 1997 Cervical Cancer Screening: P ap Smear 1999 Depression Screening 08/20/2024 Colorectal Cancer Screening: Colonoscopy 12/04/2024 Diabetes: Annual Urine Albumin-Creatinine Ratio (uACR) 12/04/2024 Social Influencers of Health Screening 12/04/2024 COVID-19 Vaccine (2023-2 5 season) 2025 Influenza Vaccine (#1) 2025 4, 06/09/2020, 10/08/2019 Diabetes: Blood Sugar Contro l Test (HGBA1C) 06/28/2025 12/26/2024 Diabetes: Annual GFR (Glomerular Filtration Rate) 01/06/2026 01/06/2025 Hypertension/CHF/CAD Annual BMP Blood Test 01/06/2026 01/06/2025 DTaP,Tdap,and Td Vaccines (2 - Td or Tdap) 10/08/2029 10/08/2019 Cholesterol Screening (Lipid Panel) 01/06/2030 01/06/2025 RSV Immunization Adult Patients (1 - 1-dose 75+ series) 2053 Hepatitis B Vaccines Completed 06/03/2024, 06/09/2020, 10/08/2019 [...] topic Insurance MEDICAID - [place] Care Teams Mobile Patrol Officer Relationship Specialty Start Date End Date Kristin Zavaleta MD [address] [place] [phone] PCP - General Internal Medicine 12/03/24
--- OUTSIDE RECORDS SUMMARY | 2025-05-08 11:11 | XMS_ITS | Encounter Summary ---
Author Organization [employer] Address [address] [facility] 7 [place] [address] Care Team Providers Care Process Eng Name Role Phone Aria Cárdenas Primary Care Provider Kristin Gallego MD Primary Care Provide r Marisol Helton PharmD Unavailable [phone] Encounter Details Date Type Department Care Team (Latest Contact Info) Description 12/22/2020 Abstract [facility] CONVERSIONS Dental, Provider, DDS Social History Tobacco [...] on filedocumented in this encounter Care Teams Process Eng Relationship Specialty Start Date End Date Aria Cárdenas FNP PCP - General Family Medicine 02/21/22 01/31/23 Kristin Zavaleta MD [address] [place], [place] [phone] PCP - General Internal Medicine 09/24/23 Marisol Helton, PharmD [address] [place], [place] [phone] Pharmacist Internal Medicine 03/03/24 documented as of this encounter
--- OUTSIDE RECORDS SUMMARY | 2025-05-08 11:11 | XMS_ITS | Clinical Summary ---
Author Organization [employer] Address [address] [facility] 7t [place] [address] Care Team Providers Care Monkey Keeper Name Role Phone Kristin Zavaleta MD Primary [...] complication, without long-term current use of insulin ([facility]) 1 each 3 times daily. 1 kit 024 Active Alcohol Swabs (Alcohol Prep) 70 % pads USE TWICE DAILY BEFORE BREAKFAST AND ONCE 2 HOURS AFTER A MEAL 100 each 5 024 Active glucose (Glutose) 40 % gel oral gelIndications: Type 2 diabetes mellitus with other specified complication, without long-term current use of insulin (CMS/HCC) Take 15 g by mouth if needed for low blood sugar. 45 g 11 024 Active atorvastatin (Lipitor) 40 MG tabletIndicatio ns:Dyslipidemia Take 1 tablet (40 mg) by mouth Once per day. 90 tablet 3 024 Active dapagliflozin (Farxiga) 10 MGIndications:T ype 2 diabetes mellitus with other specified complication, without long-term current use of insulin (CMS/HCC) TAKE 1 TABLET BY MOUTH EVERY MORNING 90 tablet 3 024 Active escitalopram (Lexapro) 20 MG tablet TAKE 1 TABLET BY MOUTH EVERY MORNING FOR MOOD OR ANXIETY 025 Active glipiZIDE (Glucotrol) 5 MG tabletIndicatio ns:Type 2 diabetes mellitus with other specified complication, without long-term current use of insulin (CMS/HCC) TAKE 1 TABLET BY MOUTH TWICE DAILY BEFORE BREAKFAST AND DINNER NEEDED. Do not take if skipping meal. 270 tablet 3 025 Active Ascorbic Acid (vitamin C) 250 MG tabletIndicatio ns:Vitamin C deficiency TAKE 1 TABLET BY MOUTH EVERY OTHER DAY IN THE MORNING WITH IRON 45 tablet 1 025 Active cholecalciferol (Vitamin D-3) 10 MCG [...] without long-term current use of insulin (CMS/HCC) TAKE 1 TABLET TWICE DAILY IN THE MORNING AND IN THE EVENING WITH MEALS 180 tablet 1 025 Active metoprolol succinate XL (Toprol XL) 25 MG 24 hr tabletIndicatio ns:Essential hypertension Take 1 tablet (25 mg) by mouth Once per day. Do not crush or chew. 90 tablet 1 025 Active insulin glargine (Lantus SoloStar) 100 UNIT/ML penIndications: Type 2 diabetes mellitus with other specified complication, without long-term current use of insulin (CMS/HCC) INJECT 16 UNITS SUBCUTANEOUSLY ONCE DAILY 15 mL 025 Active B-D UF III MINI PEN NEEDLES 31G X 5 MM miscIndications :Type 2 diabetes mellitus with other specified complication, without long-term current use of insulin (CMS/HCC) Use as directed with insulin administration once daily 100 each 3 025 Active naproxen (Naprosyn) 500 MG tablet Take 1 tablet (500 mg) by mouth if needed in the morning and at bedtime for mild pain. 30 tablet 1 025 2025 Active Diclofenac Sodium 1 % gel Apply 2 g topically if needed in the morning, at noon, in the evening, and at bedtime (pain). 150 g 3 Active TRUEplus Lancets 33G miscIndications :Type 2 diabetes mellitus with other specified complication, without long-term current use of insulin (CMS/[facility]) USE DIRECTED TO TEST BLOOD SUGAR THREE TIMES DAILY 100 each 11 Active glucose blood (FREESTYLE LITE) test stripIndication s:Type 2 diabetes mellitus with other specified complication, without long-term current use of insulin (CMS/HCC) USE DIRECTED TO TEST BLOOD SUGAR THREE TIMES DAILY 100 strip 3 Active levothyroxine (Synthroid, Levoxyl) 50 MCG tablet TAKE 1 TABLET BY MOUTH EVERY MORNING ON AN EMPTY STOMACH 30 MINUTES BEFORE BREAKFAST 90 tablet Active levothyroxine (Synthroid, Levoxyl) 50 MCG tablet TAKE 1 TABLET BY MOUTH EVERY MORNING ON AN EMPTY STOMACH 30 MINUTES BEFORE BREAKFAST 90 tablet 025 2024 Discontinued Active Problems Problem Noted Date Diagnosed Date Elevated vitamin B12 level 02/04/2025 Assessment & Plan (02/04/2025 11:18 AM EDT): I will recheck vitmain b12 levels plan is if still elevated I will ordered abdominal US and possibly refer her to hem/onc Tachycardia 02/04/2025 Assessment & Plan (02/04/2025 11:17 AM EDT): Patient admits she gets extremely nervous when ever she comes to a doctors office Encounter for screening mamm ogram for malignant [...] mellitus with hyperglycemia 10/19 Assessment & Plan (02/04/2025 11:19 AM EDT): Diabetes is: not controlled - Lab Results Component Value Date HGBA1C 8.0 (A) 12/26/2024 HGBA1C 8.1 (A) 10/15/2024 HGBA1C 8.0 (A) 06/03/2024 - Lab Results Component Value Date CREATININE 0.74 01/06/2025 -Changes: continue to follow with pharmacy CDTM for medication adjustments - Diabetic eye exam:upcoming appointment - Diabetic foot exam:up to date - Continue lifestyle modifications - Continue current medications - Follow up: 3 months Assessment & Plan (11/03/2024 4:18 PM EDT): [...] 07/17/2023 Essential hypertension 07/17/2023 Assessment & Plan (02/04/2025 11:17 AM EDT): I advised: - Aerobic exercise to reduce BP. Initial [...] prescriptions without first consulting health care provider Assessment & Plan (12/19/2023 1:01 PM EDT): [...] Encounters Date Type Department Care Team Description 04/30/2025 Refill [facility] [address] [place] [address] Kristin Zavaleta MD 04/08/2025 Telephone [facility] [address] [place] [phone] Kristin Zavaleta MD 03/30/2025 Refill [facility] [address] [place] [phone] Marisol Helton PharmD Type 2 diabetes mellitus with other specified complication, without long-term current use of insulin ([facility]) 03/13/2025 Telephone [facility] [address] [place] [phone] Kristin Zavaleta MD 03/12/2025 Telephone [facility] [address] [place] [phone] Kristin Zavaleta MD 03/05/2025 Telephone [facility] [address] [place] [phone] Kristin Zavaleta MD Appointment Request 03/03/2025 Refill [facility] [address] [place] [address] Marisol Helton PharmD Type 2 diabetes mellitus with other specified complication, without long-term current use of insulin (CMS/[facility]) from Last 3 Months Immunizations Immunization Administration Dates Next Due Hep B, adult 06/03/2024,06/09/2020,10/08/2019 Influenza injectable quadriv alent preservative free 06/09/2020,10/08/2019 Influenza, seasonal, injecta ble, preservative free 04/30/2024 Tdap 10/08/2019 Social History Tobacco Use Types Packs/Day Years Used Date Smoking Tobacco: Never Passive Smoke Exposure: Never Smokeless Tobacco: Never Tobacco Cessation:Counseling Given: Not Answered Alcohol Use Standard Drinks/Week Comments Never 0 (1 standard drink = 0.6 oz pur e alcohol) Depression Answer Date Recorded Patient Health Questionnaire-9 Score 0 02/04/2025 Patient Health Questionnaire-9 Score 0 02/04/2025 Last PHQ-9: Questionnaire Data Not on file 0 02/04/2025 Housing Stability Answer Date Recorded What is [...] off services in your home? No 03/14/2024 Depression Answer Date Recorded Patient Health Questionnaire-2 Score 0 02/04/2025 Internet Access Answer Date Recorded Internet Access [...] Sign Reading Time Taken Comments Blood Pressure 128/74 02/04/2025 10:19 AM EDT Pulse 108 02/04/2025 10:34 AM EDT Temperature 36.8 C (98.2 F) 02/04/2025 10:19 AM EDT Respiratory Rate 20 02/04/2025 10:19 AM EDT Oxygen Saturation 99% 02/04/2025 10:19 AM EDT Inhaled Oxygen Concentration - - Weight 65.4 kg (144 lb 3.2 oz) 02/04/2025 10:19 AM EDT Height 160 cm (5' 3 ) 02/04/2025 10:19 AM EDT Body Mass Index 25.54 02/04/2025 10:19 AM EDT Plan of Treatment Health Maintenance Due Date Last Done Comments CT Colonography 1978 Colonoscopy 1978 Colorectal Cancer Screening 1978 FIT DNA/Cologuard 1978 FIT 1978 FOBT 1978 Sigmoidoscopy 1978 Eye Exam 1988 Alcohol/Substance Use Screening 1990 Family Planning (PISQ) 1993 Pneumococcal Vaccine: Pediatrics (0 to 5 Years) and At-Risk Patients (6 to 49) Years (1 of 2 - PCV) 1997 Diabetes: Urine Protein Screening 09/17/2020 09/17/2019 Dental Prophylaxis 09/13/2023 03/12/2023, 1 , 12/22/2020 Dental Oral Exam 09/30/2023 03/29/2023, 10/2021, 12/22/2020 Dental X-Ray: Full Mouth 11/03/2023 11/01/2020 Dental X-Ray: Bitewings 03/13/2024 03/12/20 23, 05/22/2022, 12/22/2020 SDOH Screening 03/14/2025 03/14/2024 Diabetes: Hemoglobin A1C 03/28/2025 05 025, 10/15/2024, 06/03/2024, Additional history exists COVID-19 Vaccine ( season) 2025 07/11/2021, 06/20/2021 Influenza Vaccine (#1) 2025 , 06/09/2020, 10/08/2019 Mammogram 01/05/2026 01/05/2025, 01/02/2024 Lipid Panel 01/06/2026 01/06/2025, 03/14/2024 Diabetes: Foot Exam 01/21/2026 01/21/2025 Depression Screening 02/04/2026 02/04/2025, 02/05/20 25 Disability Screening 02/04/2026 02/04/2025 Tobacco Screening 02/04/2026 02/04/2025 Cervical Cancer Screening 11/14/2027 HPV/Cotest 11/14/2027 11/13/2022, 10/22/2019 Pap Smear 11/14/2027 11/13/2022, 11/01/2019 Zoster Vaccines (1 of 2) 2028 DTaP/Tdap/Td Vaccines (2 - Td or Tdap) 10/08/2029 10/08/2019 RSV Patients and Patients Aged 60 years or older (1 - 1-dose 75+ series) 2053 Hepatitis B Vaccines Completed 06/03/2024, 06/09/2020, 10/08/2019 HIV Screening Completed 01/06/2025, 09/17/2019 Hepatitis C Screening Completed 01/06/2025 , 03/14/2024, 09/17/2019 HIB Vaccines Aged Out No longer eligi [...] per day Blood Pressure No Marisol Garland PharmPrisca Blood Pressure < 140/90 Blood Pressure 128/74(2024 10:19 AM EDT) No Marisol Garland PharmD Take your medication every day Lifestyle No Marisol Garland PharmD Hemoglobin A1c < 7 Result Component 8(12/26/2024 9:18 AM EDT) No Marisol Garland PharmD Procedures Procedure Name Priority Date/Time Associated Diagnosis Comments AMB REFERRAL TO PODIATRY Routine 01/21/2025 Type 2 diabetes mellitus with other specified complication, without long-term current use of insulin (CMS/HCC) HEPATITIS C AB W/REFL TO HCV RNA, QN, PCR Routine 01/06/2025 8:38 AM EDT Type 2 diabetes mellitus with other specified complication, without long-term current use of insulin (CMS/HCC) HIV 1/2 ANTIGEN/ANTIBODY, FOURTH GENERATION W/RFL Routine 01/06/2025 8:38 AM EDT Type 2 diabetes mellitus with other specified complication, without long-term current use of insulin (CMS/HCC) LIPID PANEL, STANDARD Routine 01/06/2025 8:30 AM EDT Type 2 diabetes mellitus with other specified complication, without long-term current use of insulin (CMS/HCC) BI MAMMOGRAM SCREENING TOMOSYNTHESIS BILATERAL Routine 01/05/2025 12:30 PM EDT Encounter for screening mammogram for malignant neoplasm of breast POCT GLYCATED HEMOGLOBIN, TOTAL Routine 12/26/2024 9:18 AM EDT Type 2 diabetes mellitus with other specified complication, without long-term current use of insulin (CMS/HCC) PERIODIC ORAL EVALUATION - ESTABLISHED PATIENT Routine 03/29/2023 9:30 AM EDT PROPHYLAXIS - ADULT Routine 03/12/2023 8 :00 AM EDT Dental plaque BITEWINGS - 3 RADIOGRAPHIC IMAGES Routine 03/12/2023 8:00 AM EDT IMAGE-GUIDED PAP W/AGE BASED SCR PROTOCOLS Routine 11/13/2022 11:40 AM EDT Cervical cancer screening PANORAMIC RADIOGRAPHIC IMAGE Routine 11/01/2020 12:00 AM EDT ZZZ HISTORICAL MICROALBUMIN, RANDOM Routine 09/17/2019 9:19 AM EST from Last 3 Months or Most Recently Relevant to Health Maintenance Results * Referral to Podiatry (01/21/2025) us Kristin Sims MD OUTPATIENT REFERRAL O RDERABLES Final Result * Hepatitis C Antibody with Reflex to HCV, RNA, Quantitative, Real-Time PCR (01/06/2025 8:38 AM EDT) Hepatitis C Antibody Nonreactive Nonreactive [facility] Comment:Antibodies to HCV no t detected; does not exclude early acuteHCV infection. Blood Venous blood specimen / Unknown 01/06/2025 8:38 AM EDT 01/06/2025 11:37 AM EDT us Kristin Sims MD LAB BLOOD ORDERABLES Final Result [facility] [address] [place] [phone] * HIV-1/2 Antigen and Antibodies, Fourth Generation, with Reflexes (01/06/2025 8:38 AM EDT) HIV AB/AG Nonreactive Nonreactive [facility] Comment:HIV-1 p24 Ag and/or HIV-1/HIV-2 Ab not detected.A test result that is nonreactive does not exclude thepossibility of exposure to or infection with HIV-1 and/orHIV-2. Nonreactive results in this assay for individualswith prior exposure to HIV-1 and/or HIV-2 may be due toantigen and antibody levels that are below the limit ofdetection of this assay.The RENTISH HIV Ag/Ab Combo assay result andsupplemental assay results should be interpreted inconjunction with the patient's clinical presentation,history and other laboratory results. If the results areinconsistent with clinical evidence, additional testing issuggested to confirm the result. Blood Venous blood specimen / Unknown 01/06/2025 8:38 AM EDT 01/06/2025 11:37 AM EDT us Kristin Sims MD LAB BLOOD ORDERABLES Final Result Performing Organization Address [facility] Co de Phone Number [facility] [address] [place] [phone] * Lipid Panel, Standard (01/06/2025 8:30 AM EDT) Triglycerides 39 <150 mg/dL [facility] Comment:Desirable Triglyceri de: less than 150 mg/dLBorderline High Triglyceride 150-199 mg/dLHigh Triglyceride: 200-499 mg/dLVery High Triglyceride: greater than or equal to 5OO mg/dL Cholesterol 141 <200 mg/dL [facility] Comment:Desirable Cholestero l: less than 200 mg/dLBorderline High Cholesterol: 200-239 mg/dLHigh Cholesterol: greater than 239 mg/dL LDL Cholesterol Calculated 81 <100 mg/dL [facility] Comment:Desirable LDL: less than 100 mg/dLNear Optimal/Above Optimal LDL: 110- 129 mg/dLBorderline High LDL: 130-159 mg/dLHigh LDL: 160-189 mg/dLVery High LDL: greater than or equal to 190 mg/dL HDL Cholesterol 53 >40 mg/dL [facility] Comment:Desirable HDL: great er than 40 mg/dL Note: This HDL assay may give artificially low results in patients with liver disease. Blood Venous blood specimen / Unknown 01/06/2025 8:30 AM EDT 01/06/2025 11:37 AM EDT Kristin Sims MD LAB BLOOD ORDERABLES Final Result Performing Organization Address [facility]/ZIP Co de Phone Number [facility] [address] [place] [address] [phone] * BI Mammogram Screening Tomosynthesis Bilateral (01/05/2025 12:30 PM EDT) Anatomical Region Laterality Modality Breast Bilateral Mammography 01/05/2025 12:3 0 PM EDT Narrative 01/12/2025 8:38 PM EDT [facility] [address] [place], [place] [address] Mammography Report Signed Patient: Rosey Osborne R#: [id number] : 1980 Acct:[id number] Age/Sex: 44 / F ADM Date: 01/05/25 Loc: HO.MAMMO Attending Dr: Kristin Sims MD Ordering Physician: Kristin Zavaleta MD Results: 2Benign Findings Date of Service: 01/05/25 Follow Up: 1 Year From Orig inal Mammogram Procedure(s): MM tomosynthesis screening BI Accession Number(s): [id number] cc: Kristin Zavaleta MD EXAMINATION: MM SCREENING DIGITAL BREAST TOMOSYNTHESIS, BILATERAL CLINICAL INFORMATION: Screening. Asymptomatic. COMPARISON: Mammography: Comparison is made with available priors TECHNIQUE: Digital breast mammography with tomosynthesis is performed in both the craniocaudal and mediolateral oblique views along with computer-aided detection (CAD). FINDINGS: The breasts are heterogeneously dense, which may obscure small masses (ACR BI-RADS breast composition Category c). Left marker clip. There are no significant masses, abnormal calcifications, or other abnormalities. MM/MM tomosynthesis screening BI IMPRESSION: No mammographic evidence of malignancy. ASSESSMENT: BI-RADS BI-RADS 2 - Benign Findings RECOMMENDATION: Routine annual mammography screening. 1 year F/U This examination should not preclude the clinical evaluation of a suspicious palpable abnormality. This patient's information was entered into a reminder system with a target due date for their next mammogram. Electronically signed by: Ethel Camacho DO 01/12/2025 08:35 PM EDT Dictated By: Ethel Camacho DO Signed By: <Electronically signed by Ethel Camacho DO in OV> 01/12/252034 DD/ 1230 TD/TT: 01/05/25 1246 Quality Assurance Supervisor Final: Procedure Note Donotuseinterpreter, Image - 01/12/2025 [facility] [address] [place] [address] Mammography Report Signed Patient: Rosey Osborne R#: [id number] : 1980Acct:[id number] Age/Sex: 44 / FADM Date: 01/05/25 Loc: HO.MAMMO Attending Dr: Kristin Sims MD Ordering Physician: Kristin Zavaleta MDResults: 2Benign Findings Date of Service: 01/05/25Follow Up: 1 Year From Orig ina Mammogram Procedure(s): MM tomosynthesis screening BI Accession Number(s): [id number] cc: Kristin Zavaleta MD EXAMINATION: MM SCREENING DIGITAL BREAST TOMOSYNTHESIS, BILATERAL CLINICAL INFORMATION: Screening. Asymptomatic. COMPARISON: Mammography: Comparison is made with available priors TECHNIQUE: Digital breast mammography with tomosynthesis is performed in both the craniocaudal and mediolateral oblique views along with computer-aided detection (CAD). FINDINGS: The breasts are heterogeneously dense, which may obscure small masses (ACR BI-RADS breast composition Category c). Left marker clip. There are no significant masses, abnormal calcifications, or other abnormalities. MM/MM tomosynthesis screening BI IMPRESSION: No mammographic evidence of malignancy. ASSESSMENT: BI-RADS BI-RADS 2 - Benign Findings RECOMMENDATION: Routine annual mammography screening. 1 year F/U This examination should not preclude the clinical evaluation of a suspicious palpable abnormality. This patient's information was entered into a reminder system with a target due date for their next mammogram. Electronically signed by: Ethel Camacho DO 01/12/2025 08:35 PM EDT Dictated By: Ethel Camacho DO Signed By: <Electronically signed by Ethel Camacho DO in OV> 01/12/252034 DD/ 1230 TD/TT: 01/05/25 1246 Quality Assurance Supervisor Final: Kristin Sims MD IMG BI PROCEDURES Shaka mark Result - Final * (ABNORMAL) POCT A1C (12/26/2024 9:18 AM EDT) Hemoglobin A1C 8.0(A) 4.0 - 6.0 % QC Media Lot # [id number] Lot# Expiration Date [id number] Blood 12/26/2024 9:18 AM EDT Kristin Sims MD POINT OF CARE TEST EN TER/EDIT ORDERABLES Final Result * Image-Guided Pap with Age-Based Screening Protocols (11/13/2022 11:40 AM EDT) Comment [employer] Comment: This order for age-based cervical cancer and STI screening follows ACOG guidelines(PB 168, 140, HRG798). See individual assays for performing site location. Clinical Information: None given [facility] LMP: NONE GIVEN [employer] Prev. PAP: NONE GIVEN [facility] [facility] Prev. BX: NO [facility] SOURCE: None given [employer] Statement Of Adequacy: [employer] Comment: Satisfactory for evaluation. Endocervical/transformation zone component present. Interpretation/ Result: Negative for intraepithelial lesion or malignancy. [employer] COMMENT: [employer] Comment: This case could not be evaluated with computer assisted technology. The slide was manually screened according to routine procedures. Cytotechnologis t: [employer] Comment: MXD, CT (ASCP) CT screening location: [place] [address] Review Cytotechnologis t: [employer] Comment: GSG, CT(ASCP) CT screening location: [place] [address] (Always Message) [employer] Comment: EXPLANATORY NOTE: The Pap is a [...] HPV nRNA E6/E7 Not Detected Not Detected [employer] Comment: Methodology: Co Founder And Chairman-Mediated Amplification This assay detects E6/E7 viral messenger RNA (mRNA) from 14 high-risk HPV types (16,18,31,33,35,39,45,51,52,56,58,59,66,68). Cervical sources are required for HPV testing. If a vaginal source from a patient who has had a total hysterectomy with removal of cervix was submitted, please contact the testing laboratory for alternative testing options. For additional information, please refer to http://education.Altia/faq/OYC452t1 (This link if provided for information/ educational purposes only.) Cytology specimen container (physical object) 11/13/2022 11:40 AM EDT 11/14/2022 9:49 AM EDT Prerna Meehan [facility] LAB BLOOD ORDERABLES Corrina l Result [facility] [address], [place] [address] [employer] [facility] [address] [place] [address] * MICROALBUMIN, RANDOM (09/17/2019 9:19 AM EST) CREATININE, RANDOM URINE 85.34 MG/DL [facility] MICALB/CRE RATIO RANDOM URINE 36.3 ug/mg cr [facility] Comment: Albumin/Creatinine Ratio Reference Ranges: Normal: < 30 ug/mg creatinine Microalbuminuria: 30 - 300 ug/mg creatinine Clinical Albuminuria: > 300 ug/mg creatinine MICROALBUMIN, RANDOM URINE 31.0 MG/L [facility] 09/17/2019 9:19 AM EST Mary LAUP HISTORICAL/NON ORDERABLE LA BS Final Result [facility] [address] from Last 3 Months or Most Recently Relevant to Health Maintenance Insurance [facility] C3 DENTAL-[facility] MEDICAID STAND ADULT Care Teams Monkey Keeper Relationship Specialty Start Date End Date Kristin Zavaleta MD [address] [place] [address] PCP - General Internal Medicine 09/24/23 Marisol Helton, Maria ED [address] [place] [address] Pharmacist Internal Medicine 03/03/24
--- OUTSIDE RECORDS SUMMARY | 2025-05-08 11:11 | XMS_ITS | Encounter Summary ---
Author Organization [employer] Address [address] [facility] [address] [place] [address] Care Team Providers Care Optometric Technician Name Role Phone Kristin Zavaleta MD Primary Care Provide r Marisol Helton PharmD Unavailable [phone] Encounter Details Date Type Department Care Team (Late st Contact Info) Description 01/08/2025 Orders Only [facility] [address] [place], [place] [phone] Kristin Zavaleta MD [address] [place], [place] [phone] Social History Tobacco Use Types Packs/Day Years Used Date Smoking Tobacco: Never Passive Smoke Exposure: Never Smokeless Tobacco: Never Housing Stability Answer Date Recorded What is your housing situation today? I have [place] sing 03/14/[address] you li [...] on file documented as of this encounter Goals Goal Patient Goal Type Associated Problems Recent Progress Patient-Stated? Author Record your blood pressure once per day Blood Pressure No Geremiass-Gambl e, Marisol, PharmD Blood Pressure < 140/90 Blood Pressure 128/74(2024 10:19 AM EDT) No Geremiass-Gambl eAmysa, PharmD Take your medication every day Lifestyle No Piers-Gambl e, Marisol, PharmD Hemoglobin A1c < 7 Result Component 8(12/26/2024 9:18 AM EDT) No Piers-Gambl e, Marisol, PharmD documented as of this encounter Visit Diagnoses Not on filedocumented in this encounter Care Teams Optometric Technician Relationship Specialty Start Date End Date Kristin Zavaleta MD [address] [place] [address] PCP - General Internal Medicine 09/24/23 GeermiassMarisol Mckeon, PharmD [address] [place] [address] Pharmacist Internal Medicine 03/03/24 documented as of this encounter
--- OUTSIDE RECORDS SUMMARY | 2025-05-08 11:11 | XMS_ITS | Encounter Summary ---
Author Organization [employer] Address [address] [facility] 7 [place] [address] Care Team Providers Care Lumber Stacker Operator Name Role Phone Aria Cárdenas Primary Care Provider Kristin Gallego MD Primary Care Provide r Marisol Helton PharmD Unavailable [phone] Encounter Details Date Type Department Care Team (Latest Contact Info) Description 05/22/2022 Abstract [facility] CONVERSIONS Dental, Provider, DDS Social [...] on filedocumented in this encounter Care Teams Lumber Stacker Operator Relationship Specialty Start Date End Date Aria Cárdenas FNP PCP - General Family Medicine 02/21/22 01/31/23 Kristin Zavaleta MD [address] [place], [place] [phone] PCP - General Internal Medicine 09/24/23 Marisol Helton, PharmD [address] [place], [place] [phone] Pharmacist Internal Medicine 03/03/24 documented as of this encounter
--- OUTSIDE RECORDS SUMMARY | 2025-05-08 11:11 | XMS_ITS | Encounter Summary ---
Author Organization [employer] Address [address] [facility] 7 [place] [address] Care Team Providers Care Store Lead Name Role Phone Aria Cárdenas Primary Care Provider Kristin Gallego MD Primary Care Provide r Marisol Helton PharmD Unavailable [phone] Encounter Details Date Type Department Care Team (Latest Contact Info) Description 11/03/2019 Abstract [facility] CONVERSIONS Dental, Provider, DDS Social [...] on filedocumented in this encounter Care Teams Store Lead Relationship Specialty Start Date End Date Aria Cárdenas FNP PCP - General Family Medicine 02/21/22 01/31/23 Kristin Zavaleta MD [address] [place], [place] [phone] PCP - General Internal Medicine 09/24/23 Marisol Helton, PharmD [address] [place], [place] [phone] Pharmacist Internal Medicine 03/03/24 documented as of this encounter
[2025-05-08 13:39] LABS: MANUAL DIFF FLAG NO
[2025-05-08 14:03] LABS: Alanine Aminotransferase 30 U/L (0-31); Albumin Level 4.2 g/dL (3.5-5.0); Alkaline Phosphatase 56 U/L (39-117); Anion Gap 9 (12-20); Aspartate Amino Transferase 22 U/L (5-31); Blood Urea Nitrogen 19 mg/dL (9-16); Calcium 9.2 mg/dL (8.4-10.2); Carbon Dioxide 26 mmol/L (22-29); Chloride 106 mmol/L (96-108); Estimated Glomerular Filt Rate > 60; Potassium 4.0 mmol/L (3.3-5.1); Sodium 137 mmol/L (135-145); Total Protein 7.7 g/dL (6.5-8.0)
[2025-05-08 14:34] LABS: Hematocrit 34.0 % (37.0-47.0); Hemoglobin 10.9 g/dl (12.0-16.0); Imm Gran Abs Auto 0.04 X10*3/uL (0.00-0.03); Imm Gran Pct Auto 0.6 % (0.0-0.4); Lymphocytes Absolute Auto 1.3 X10*3/uL (1.2-4.9); Mean Corpuscular HGB Conc 32.1 g/dl (31.0-35.0); Mean Corpuscular Hemoglobin 28.7 pg (27.0-33.0); Mean Corpuscular Volume 89.5 fL (80.0-98.0); NRBC Abs Auto 0.000 X10*3/uL (0.0-0.012); NRBC Pct Auto 0.0 /100WBC (0.0-0.2); Platelet Count 191 X10*3/uL (160-400); Red Blood Count 3.80 X10*6/uL (4.20-5.50); White Blood Count 6.3 X10*3/uL (4.8-10.8)
== END 2025-05-08 10:34 | disposition home or self-care (01) ==
LOC: HO.HKASLDS 10:33
PROVIDERS: Visit Provider Student in an Organized Health Care Education/Training Program
DX: Z79.899 Other long term (current) drug therapy (principal)
CPT/HCPCS: 36415; 80053; 85025; 85652; 86140

== ENCOUNTER 2025-05-15 10:43 | Outpatient (AMB) | payer MEDICAID, SELFPAY ==
--- OUTSIDE RECORDS SUMMARY | 2025-02-07 05:00 | XMS_ITS ---
Author Organization [facility] Address [address] [place] [address] Care Team Providers Care Client Services Associate Name Role Phone Migration, Provider Unavailable Unavailable REASON FOR VISIT EMR-[facility] Encounters Encounter Location Date Provider Diagnosis [facility] [address] [place] [address] 02/07/2025 Provider Migration Plan Of Treatment Medication Medication Name Sig Start Date Stop Date Notes PEN NEEDLE 31 gauge x 1/4 NEEDLE, DISPOSABLE 1 MISCELLANEOUS QD; Duration: 01/17/2018 01/11/2019 *Reorder from [employer] for eRx and Interaction Alerts* Levothyroxine Sodium 50 MCG Tablet Oral; Duration: 02/26/2018 03/27/2018 Losartan Potassium 50 MG Tablet 1 Oral QD; Duration: 09/19/2017 01/16/2018 ,discontinuereaso n:Discontinued amLODIPine Besylate 2.5 MG Tablet 1 Oral QD; Duration: 03/25/2018 07/22/2018 Lantus Solostar U-100 Insulin 100 unit/mL (3 mL) Unit(s) 35 SQ QHS; Duration: 09/19/2017 10/18/2017 ,discontinuereaso n:Refilled *Reorder from [email or web address] for eRx and Interaction Alerts* hydroCHLOROthiazide 25 MG Tablet 1 Oral QD; Duration: 12/27/2017 06/24/2018 Gabapentin 300 mg Tablet(s) 1 PO QPM; Duration: 08/01/2017 08/30/2017 *Pick strength-form from [email or web address] for eRX* Folic Acid 1 MG Tablet 1 Oral QD; Durati on: 12/27/2017 06/24/2018 Lantus SoloStar 100 UNIT/ML Solution Pen-injector 35 Subcutaneous QHS; Duration: 30 04/29/2018 04/23/2019 metFORMIN HCl ER 750 MG [...] * Rosey URENA EDOB:[birth year] (44 yo F)Acc No.[id number]:02/07/2025 Patient: Rosey NANCE :1980 A ge:44 Y S ex:Female Phone: Address:[address] [place] [address] [address], [place], [place], [facility] [place] * Refills Stop amLODIPine Besylate Tablet, 2.5 [...]
--- OUTSIDE RECORDS SUMMARY | 2025-02-08 05:00 | XMS_ITS ---
Author Organization [facility] Address [address] [place] [address] Care Team Providers Care Plant Changer Name Role Phone Migration, Provider Unavailable Unavailable [...] Diagnosis [facility] [address] [place] [address] 02/08/2025 Provider Migration Plan Of Treatment No Information Progress Notes * Rosey URENA EDOB:[birth year] (44 yo F)Acc No.[id number]:02/08/2025 Patient: Rosey NANCE :1980 A ge:44 Y S ex:Female Phone: Address:[id number], [place], [address] Subjective: * Chief Complaints: * E MR-Spencer [...]
--- NOTE | 2025-05-15 10:59 | MHC.OFFVIS ---
Vital Signs 05/15/25 11:04 Height 5 ft 3 in Weight 144 lb 2.917 oz BMI 25.5 BP 120/80 Blood Pressure Location Rt brachial Position Sitting Pulse 108 H Pulse Source Pulse Oximeter Pulse Oximetry (%) 98 Oxygen Delivery Method Room Air Intake Visit Reasons: discuss labs Intake Note: Patient presents to discuss labs follow up. Warehouse Manager Required: Yes Warehouse Manager Language: Outreach Representative Services: Warehouse Manager Present Warehouse Manager Name: Kristin [id number] Information Interpreted: non-clinical & clinical Allergies No Known Allergies Allergy (Verified 05/15/25 11:04) Medication List - Last Reconciled 05/15/25 by Katie Rodgers MD ascorbic acid (vitamin C) 1 tab PO Q12H atorvastatin 1 tab PO DAILY cholecalciferol (vitamin D3) (Vitamin D3) 2 tabs PO DAILY dapagliflozin propanediol (Farxiga) 5 mg PO DAILY escitalopram oxalate 20 mg PO DAILY ferrous sulfate 1 tab PO DAILY glipizide 1 - 2 tabs PO BID ibuprofen 600 mg PO Q6H PRN insulin glargine (Lantus Solostar U-100 Insulin) 16 units subcut BID levothyroxine 1 tab PO QAM losartan 1 tab PO DAILY metformin 500 mg PO DAILY metoprolol succinate ER 25 mg PO DAILY HPI Comments Details: Patient is a 44 year old female with HLD, DM, Hypothyroidism, and depression here today for follow up after evaluation of joint pain Interval History: Patient last seen 04/09/25 with il - New patient evaluation for polyarthralgias - Exam concerning for inflammatory arthritis - XRs and labs done Today - Not on any DMARDs - XRs and labs consistent with seropositive RA - Still c/o of hand pain and not able to fully close hands Rheumatologic History: Initial History: Bilateral hand pain since December 2024 Not associated stiffness or swelling Does note some cramping but no other sx No other joints affected No history of transient monoarticular arthritis affecting the great toes, knees, wrists or any other joints Family hx - no known family of autoimmune disease or connective tissue disease Current Rheumatology Medication(s): [facility] Medical History (Updated 05/15/25 @ 11:23 by Katie Rodgers MD) Rheumatoid arthritis Fibroadenoma of breast Diabetes mellitus Hypertension Thyroid disease Left breast mass Surgical History History of breast biopsy Social History Current occupational status: disabled 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 Reproductive History Menstrual Age of Menarche: 11 Review of Systems Const Details: Review of Systems Constitutional: Denies fever, chills, weight loss ENT: Denies vision changes, eye pain or eye redness, dental caries, dry mouth GI: Denies nausea, vomiting, diarrhea, abdominal pain, change in BM Pulm: Denies SOB, RAZA, hemoptysis, wheezing Cards: Denies chest pain, palpitations Skin: Denies Raynaud's, rash, nail changes, photosensitivity, ENTREPRENEURSHIP PROGRAM DIRECTOR: Denies headaches, weakness, paresthesias, recurrent falls MSK: as per HPI All other systems reviewed and are unremarkable except noted above Physical Exam Exam Exam: Vital signs reviewed Physical Examination CONSTITUITIONAL Patient alert and cooperative. Well appearing and in no apparent painful distress MSK Hands Right Hand: Not able to make a full fist. Swelling of the 5th digit with TTP of the PIP. No TTP of the MCPs or DIPs Left Hand: Not able to make a full fist. Swelling of the 5th digit with TTP of the PIP. No TTP of the MCPs or DIPs Wrists Right Wrist: Full ROM. 70 degrees of wrist flexion, 80 degrees of wrist extension. No swelling or TTP Left Wrist: Full ROM. 70 degrees of wrist flexion, 80 degrees of wrist extension. No swelling or TTP Elbows Right Elbow: Full ROM. No swelling or TTP. No TTP of the medial and lateral epicondyles Left Elbow: Full ROM. No swelling or TTP. No TTP of the medial and lateral epicondyles Shoulders Right shoulder: Full ROM. No swelling noted. No TTP of the AC joint, subacromial bursa or posterior shoulder Left shoulder: Full ROM. No swelling noted. No TTP of the AC joint, subacromial bursa or posterior shoulder Knees Right knee: Full ROM. No swelling noted. No TTP of the knee joint lie or pes anserine bursa Left knee: Full ROM. No swelling noted. No TTP of the knee joint lie or pes anserine bursa. Ankles Right ankle: Good ankle dorsiflexion and plantar flexion. No swelling. No TTP of the ankle joint Left ankle: Good ankle dorsiflexion and plantar flexion. No swelling. No TTP of the ankle joint Feet Right foot: Negative squeeze test Left foot: Negative squeeze test Tender points? No tenderness to palpation of the bilateral trapezius, supraspinatus, anterior costochondral junctions, bilateral suboccipital muscle insertions SKIN No rashes No Tophi Vital Signs: Last Vital Signs Pulse 108 H 05/15/25 11:04 BP 120/80 05/15/25 11:04 Pulse Ox 98 05/15/25 11:04 Oxygen Delivery Method Room Air 05/15/25 11:04 BMI result Body Mass Index 25.5 Results Reviewed Results Reviewed: Laboratory Tests 01/06/25 04/09/25 05/08/25 08:30 14:09 10:35 WBC 6.3 RBC 3.80 L Hgb 10.9 L Hct 34.0 L ESR 25 H Sodium 137 Potassium 4.0 Chloride 106 Carbon Dioxide 26 BUN 19 H Creatinine 0.63 Uric Acid 2.1 L AST 22 ALT 30 C-Reactive Protein < 0.10 25-OH Vitamin D Total 38.6 Laboratory Tests 04/09/25 14:09 Rheumatoid Factor 31.3 H Cycl Citrul Peptide IgG 128 H HLA-B27 Negative XR Right Hand 03/2025 FINDINGS: Marginal erosions are evident involving the head and neck region of the fourth and fifth proximal phalanges and second digit middle phalanges. There is also evidence of mature periosteal new bone formation involving the neck of the fourth and fifth proximal phalanges. There is possible marginal erosion involving the ulnar base of the fifth metacarpal. There is no acute fracture or deformity. IMPRESSION: There are erosive change suggesting inflammatory arthropathy such as psoriatic or rheumatoid arthritis. No acute abnormality. Unremarkable thumb. Assessment & Plan Assessment & Plan (1) Rheumatoid arthritis: Comment: Dx 03/2025 +RF/++CCP Code(s): M06.9 - Rheumatoid arthritis, unspecified Category: Medical Qualifiers: Rheumatoid arthritis location: multiple sites Rheumatoid factor presence: with rheumatoid factor Qualified Code(s): M05.79 - Rheumatoid arthritis with rheumatoid factor of multiple sites without organ or systems involvement Plan: #Seropositive RA Patient is a 44 y.o. female with newly diagnosed seropositive erosive RA, here today for follow up after labs and XRs Will start DMARDs Plan - Methotrexate 15mg weekly - Folic acid 1mg daily - RTC 4 months - Labs before visit: CBC, CMP, ESR, CRP, Hepatitis panel and T spot (2) Encounter for methotrexate monitoring: Code(s): Z51.81 - Encounter for therapeutic drug level monitoring; Z79.631 - intermediate accountant (current) use of antimetabolite agent Plan: #Long-term Current Use of Methotrexate Discussed with patient the benefits and risks of methotrexate for managing their rheumatic condition Benefits include reduced pain, reduced mortality, maintenance of remission and reduction of flares Risks include oral ulcers, photosensitivity, hepatotoxicity, hematologic toxicity, pneumonitis, flu-like symptoms (especially day after administration), nodulosis, lymphomas ? Limit alcohol and avoid Bactrim ? Monitoring: CBC, BMP, LFTs every 3-4 months and hepatitis serologies as needed Plan I spent 30 minutes reviewing the record and labs, taking a history, examining the patient, discussing the treatment plan, ordering diagnostic work up and documenting in the medical record Orders: Orders Comprehensive Met. Panel 4 Months Z79.899 - Other technician terminal and repeater (current) drug therapy C Reactive Protein 4 Months Z79.899 - Other correction (current) drug therapy T Spot TB 4 Months Z79.899 - Other correction (current) drug therapy Complete Blood Count Auto Diff 4 Months Z79.899 - Other technician terminal and repeater (current) drug therapy Erythrocyte Sedimentation Rate 4 Months Z79.899 - Other technician terminal and repeater (current) drug therapy Hepatitis B,C Profile 4 Months Z79.899 - Other technician terminal and repeater (current) drug therapy Medications: New methotrexate sodium 15 mg (6 x 2.5 mg) PO QWEEK 78 tabs 1RF 90 days M05.79 - Rheumatoid arthritis with rheumatoid factor of multiple sites without organ or systems involvement folic acid 1 mg PO DAILY 90 tabs 1RF M05.79 - Rheumatoid arthritis with rheumatoid factor of multiple sites without organ or systems involvement Discontinued ibuprofen Discontinued Reason: Doctor's Order 600 mg PO Q6H PRN 30 tabs 0RF pain Coding Level of Care Code Est Pt Level 4 (27925) Complex EM visit Add On G2211 Diagnoses Rheumatoid arthritis involving multiple sites with positive rheumatoid factor M05.79 Rheumatoid arthritis location: multiple sites Rheumatoid factor presence: with rheumatoid factor Encounter for methotrexate monitoring Z51.81; Z79.631
[2025-05-15 11:04] VITALS: BP 120/80; PULSE 108; O2SAT 98; BMI 25.5
--- OUTSIDE RECORDS SUMMARY | 2025-05-15 12:17 | XMS_ITS | Clinical Summary ---
Author Organization [address] [facility] Address [address] [place] [address] Phone Care Team Providers Care Trimming Assembler Name Role Phone Kristin Zavaleta MD Primary [...] Upcoming Encounters Date Type Department Care Team ([facility] Contact Info) Description 01/21/2026 8:30 AM EDT Office Visit Orthopedic Surgery [place] [address] [address] Mohamud Shannon DPBrian [address] [address] Health Maintenance Due Date Last [...] topic Insurance MEDICAID - [place] Care Teams Trimming Assembler Relationship Specialty Start Date End Date Kristin Zavaleta MD [address] [place] [phone] PCP - General Internal Medicine 12/03/24
--- OUTSIDE RECORDS SUMMARY | 2025-05-15 12:17 | XMS_ITS | Patient Health Record ---
Author Organization [facility] Address [address] [place] [address] Care Team Providers Care Ton Container Shipper Name Role Phone Migration, Provider Unavailable Unavailable Reason For Referral No Information Social History Social History Additional Details Category [...] , Sexual History:Monogamous , Tobacco history:Never smoker Problems Problem Type SNOMED Code ICD Code Onset Dates Problem Status W/U Status Risk Notes Problem Iron deficiency anemia (66462329) Other iron deficiency anemias (D50.8) 12/28/19 18 Active confirmed Problem Iron deficiency anemia (04873413) Iron deficiency anemia, unspecified (D50.9) 09/25/19 18 Active confirmed Problem Hypothyroidism (68034287) Hypothyroidism, unspecified (E03.9) 09/25/19 18 Active confirmed Problem Hyperglycemia due to type 2 diabetes mellitus (241619009171126) Type 2 diabetes mellitus with hyperglycemia (E11.65) 09/11/19 18 Active confirmed Problem Type 2 diabetes mellitus with other specified complication (E11.69) 09/25/19 18 Active confirmed Problem Iron deficiency (66246134) Iron deficiency (E61.1) 09/11/19 18 Active confirmed Problem Urinary tract infectious disease (disorder) (39554957) Urinary tract infection, site not specified (N39.0) 12/28/19 18 Active confirmed Problem Adult health examination (178393666) Encounter for general adult medical examination without abnormal findings (Z00.00) 08/01/20 17 Active confirmed Problem Type 2 diabetes mellitus with mild nonproliferative diabetic retinopathy with macular edema, unspecified eye (E11.3219) 09/25/19 18 Active confirmed Problem Normal body mass index (27767925) Body mass index (BMI) 22.0-22.9, adult (Z68.22) 09/25/19 18 Active confirmed Problem Normal body mass index (57540064) Body mass index (BMI) 21.0-21.9, adult (Z68.21) 09/11/19 18 Active confirmed Encounters Encounter Location Date Provider Diagnosis [facility] [address] [place] [address] 02/07/2025 Provider Migration [facility] [address] [place] [address] 02/08/2025 Provider Migration Plan Of Treatment No Information Insurance Providers Payer Name Payer Address Payer Phone Subscriber Number Group Number Insured Name Patient Relationship to Insured Coverage Start Date Coverage End Date [facility] [address] [address] [place] [address] [id number] Rosey Urena Self - patient is the insured Medical (General) History Surgical History Surgery Date(Month/Year)
== END 2025-05-15 11:35 | disposition home or self-care (01) ==
LOC: HO.RHES 10:43
PROVIDERS: PCP Internal Medicine; Visit Provider Student in an Organized Health Care Education/Training Program
DX: M05.79 Rheumatoid arthritis with rheumatoid factor of multiple sites without organ or systems involvement (principal); Z51.81 Encounter for therapeutic drug level monitoring; Z79.631 Long term (current) use of antimetabolite agent
CPT/HCPCS: 99214

== ENCOUNTER → 2025-05-15 10:43 | Outpatient (BNVA) | payer MEDICAID, SELFPAY | PROVIDERS: PCP Internal Medicine; Visit Provider Student in an Organized Health Care Education/Training Program | DX: M05.79 Rheumatoid arthritis with rheumatoid factor of multiple sites without organ or systems involvement (principal); Z51.81 Encounter for therapeutic drug level monitoring; Z79.631 Long term (current) use of antimetabolite agent | CPT/HCPCS: 99212 ==

== ENCOUNTER 2025-06-08 06:31 | Day surgery (SDC) | payer MEDICAID, SELFPAY ==
[2025-06-08 06:49] VITALS: BP 144/88; PULSE 109; RESP 16; TEMP 36.3; O2SAT 100; BMI 25.7
[2025-06-08 07:11] VITALS: BP 96/60; PULSE 74
[2025-06-08 07:13] VITALS: BP 188/65; PULSE 82; RESP 16
[2025-06-08 07:20] VITALS: BP 125/72; PULSE 88; RESP 16
[2025-06-08 07:24] VITALS: BP 119/70; PULSE 83; RESP 16
--- NOTE | 2025-06-08 07:41 | P.OP_ITS ---
Operative Note Operative Note Date of Service: 06/08/25 Narrative: Operative Note Preop diagnosis: 1. Right locked trigger thumb Postop diagnosis: Same Procedure: 1. Right thumb A1 gonzalez release Surgeon: Kadi Del Rio MD Systems Integration Advisor: Roni LEYVA Anesthesia: local block using 1% lidocaine with epinephrine Findings: Tendon intact, good flexion and extension after A1 gonzalez release. No locking or catching after A1 gonzalez release EBL: Less than 5 mL Tourniquet time: None Specimens: None Complications: None Disposition: Brought to recovery room in stable condition Plan: Follow-up for 10-14 days for wound check and suture removal Indications: The patient is 44 years old, with a right locked trigger thumb that has been unresponsive to nonoperative management. The risks and benefits of operative treatment including but not limited to risk of damage to blood vessels, nerves, tendons, infection, persistent pain, persistent symptoms, recurrence or possible need for additional surgery were discussed with the patient and the patient wishes to proceed with surgery. Procedure: Once consent was obtained a local block was performed in the preop area using a combination of 1% lidocaine with epinephrine. The patient was then brought back to the operating suite and placed on the operative table in supine position. The right upper extremity was prepped and draped in a standard surgical fashion. Once assured that we had a good block, a 1.5 cm oblique incision was made centered over the A1 gonzalez of the right thumb . The incision was made through the skin to the subcutaneous tissues using a #15 blade. Careful dissection was made down to the level of the A1 gonzalez using tenotomy scissors, with care being taken to protect the nearby neurovascular structures. A longitudinal incision was made in the A1 gonzalez 1st using a #15 blade, then using tenotomy scissors under direct visualization. The A1 gonzalez was noted to be thickened. Following our A1 gonzalez release, we no longer saw any locking or catching of the digit with flexion and extension. Once satisfied with our A1 gonzalez release the wound was copiously irrigated with normal saline and hemostasis was obtained with a brief period of local pressure. The skin edges were reapproximated with some 5.0 nylon suture material and a sterile dressing was applied. The patient appears to have tolerated the procedure well and with no complications. All digits were well vascularized at the conclusion of the case.
--- NOTE | 2025-06-08 07:41 | MHC.SHP ---
Pre-Procedural Eval Section A - 24 Hr Update-Section A only Date of Service: 06/08/25 The patient is an INPATIENT: No Changes since office visit: No Cold of Flu in the past 2 weeks, No New Medical Problems, No Changes in Medication and No Patient answered all questions The patient has been examined within 24 hours of the surgical procedure. The History & Physical has been completed within 30 days and I have reviewed it.: Yes Section B - Complete if H&P > 30 days Chief Complaint: Trigger thumb, right thumb Allergies: Allergies Allergy/AdvReac Type Severity Reaction Status Date / Time No Known Allergies Allergy Verified 05/15/25 11:04 Plan Diagnosis/Plan: Unchanged I have reviewed the history and physical and performed a pertinent physical examination on my patient. No changes have occurred unless specified. Time Spent With Patient Time: Total time managing care of this patient today ____ minutes.
[2025-06-08 08:00] VITALS: BP 123/71; PULSE 88; RESP 16; O2SAT 98
== END 2025-06-08 08:31 | disposition home or self-care (01) ==
PROVIDERS: PCP Internal Medicine; Visit Provider Orthopaedic Surgery
PROC: (CPT 26055; principal; 2025-06-08 07:30)
DX: M65.311 Trigger thumb, right thumb (principal); M79.644 Pain in right finger(s); R29.91 Unspecified symptoms and signs involving the musculoskeletal system; I10 Essential (primary) hypertension; E11.9 Type 2 diabetes mellitus without complications; E07.9 Disorder of thyroid, unspecified
CPT/HCPCS: 26055; J0165; J2003

== ENCOUNTER → 2025-06-08 06:31 | Outpatient (BNV) | payer MEDICAID, SELFPAY | PROVIDERS: PCP Internal Medicine; Visit Provider Orthopaedic Surgery | DX: M65.311 Trigger thumb, right thumb (principal) | CPT/HCPCS: 26055 ==

== ENCOUNTER 2025-06-22 09:31 | Outpatient (AMB) | payer MEDICAID, SELFPAY ==
--- OUTSIDE RECORDS SUMMARY | 2025-02-07 04:00 | XMS_ITS ---
Author Organization [facility] Address [address] [place] [address] Care Team Providers Care Manager Employee Relations Name Role Phone Migration, Provider Unavailable Unavailable REASON FOR VISIT [facility] Encounters Encounter Location Date Provider Diagnosis [facility] [address] [place] [address] 02/07/2025 Provider Migration Plan Of Treatment Medication Medication Name Sig Start Date Stop Date Notes PEN NEEDLE 31 gauge x 1/4 NEEDLE, DISPOSABLE 1 MISCELLANEOUS QD; Duration: 01/17/2018 01/11/2019 *Reorder from [employer] for eRx and Interaction Alerts* Levothyroxine Sodium 50 MCG Tablet Oral; Duration: 02/26/2018 03/27/2018 Losartan Potassium 50 MG Tablet 1 Oral QD; Duration: 09/19/2017 01/16/2018 ,discontinuereaso n:Discontinued amLODIPine Besylate 2.5 MG Tablet 1 Oral QD; Duration: 03/25/2018 07/22/2018 Lantus Solostar U-100 Insulin 100 unit/mL (3 mL) Unit(s) 35 SQ QHS; Duration: 09/19/2017 10/18/2017 ,discontinuereaso n:Refilled *Reorder from [employer] for eRx and Interaction Alerts* hydroCHLOROthiazide 25 MG Tablet 1 Oral QD; Duration: 12/27/2017 06/24/2018 Gabapentin 300 mg Tablet(s) 1 PO QPM; Duration: 08/01/2017 08/30/2017 *Pick strength-form from [employer] for eRX* Folic Acid 1 MG Tablet 1 Oral QD; Durati on: 12/27/2017 06/24/2018 Lantus SoloStar 100 UNIT/ML Solution Pen-injector 35 Subcutaneous QHS; Duration: 04/29/2018 04/23/2019 metFORMIN HCl ER 750 MG Tablet Extended Release 24 Hour 1 Oral BID; Duration: 04/29/2018 08/26/2018 Macrobid 100 MG Capsule 1 Oral BID; Duration: 12/31/2017 01/06/2018 Losartan Potassium 100 MG Tablet 1 Oral QD; Duration: 02/26/2018 03/27/2018 Ferrous Sulfate 325 (65 Fe) MG Tablet 1 Oral TID; Duration: 12/27/2017 06/24/2018 Colace 100 MG Capsule 1 Oral BID; Duration: 12/31/2017 06/28/2018 Progress Notes * Rosey URENA EDOB:[birth year] (44 yo F)Acc No.[id number]:02/07/2025 Patient: Rosey NANCE :1980 A ge:44 Y S ex:Female Phone: Address:[address] [place] [address] [address], [place], [place], [facility] * Refills Stop amLODIPine Besylate Tablet, 2.5 MG, Oral, 30, 1, QD, 30 Stop amLODIPine Besylate Tablet, 2.5 MG, Oral, 30, 1, QD, 30 Stop amLODIPine Besylate Tablet, 2.5 MG, Oral, 30, 1, QD, 30 Stop Colace Capsule, 100 MG, Oral, 60, 1, BID, 30 Stop Ferrous Sulfate Tablet, 325 (65 Fe) MG, Oral, 60, 1, BID, 30 Stop Ferrous Sulfate Tablet, 325 (65 Fe) MG, Oral, 90, 1, TID, 30 Stop Folic Acid Tablet, 1 MG, Oral, 30, 1, QD, 30 Stop Gabapentin Tablet(s), 300 mg, PO, 30, 1, QPM, 30 Stop hydroCHLOROthiazide Tablet, 25 MG, Oral, 30, 1, QD, 30 Stop Lantus SoloStar Solution Pen-injector, 100 UNIT/ML, Subcutaneous, 40, QHS, 30 Stop Lantus SoloStar Solution Pen-injector, 100 UNIT/ML, Subcutaneous, 10, 35, QHS, 30 Stop Lantus SoloStar Solution Pen-injector, 100 UNIT/ML, Subcutaneous, 10, 35, QHS, 30 Stop Lantus SoloStar Solution Pen-injector, 100 UNIT/ML, Subcutaneous, 10, 35, QHS, 30 Stop Lantus SoloStar Solution Pen-injector, 100 UNIT/ML, Subcutaneous, 10, 35, QHS, 30 Stop Levothyroxine Sodium Tablet, 50 MCG, Oral, 30, 1, QD, 30 Stop Levothyroxine Sodium Tablet, 50 MCG, Oral, 30, 1, QD, 30 Stop Levothyroxine Sodium Tablet, 50 MCG, Oral, 30, 1, QD, 30 Stop Levothyroxine Sodium Tablet, 50 MCG, Oral, 30, 1, QD, 30 Stop Levothyroxine Sodium Tablet, 50 MCG, Oral, 30, 30 Stop Levothyroxine Sodium Tablet, 50 MCG, Oral, 30, 30 Stop Levothyroxine Sodium Tablet, 50 MCG, Oral, 30, 30 Stop Losartan Potassium Tablet, 50 MG, Oral, 30, 1, QD, 30 Stop Losartan Potassium Tablet, 50 MG, Oral, 30, 1, QD, 30 Stop Losartan Potassium Tablet, 100 MG, Oral, 30, 1, QD, 30 Stop Losartan Potassium Tablet, 100 MG, Oral, 30, 1, QD, 30 Stop Losartan Potassium Tablet, 50 MG, Oral, 30, 1, QD, 30 Stop Losartan Potassium Tablet, 100 MG, Oral, 30, 1, QD, 30 Stop Losartan Potassium Tablet, 100 MG, Oral, 30, 1, QD, 30 Stop Macrobid Capsule, 100 MG, Oral, 14, 1, BID, 7 Stop Macrobid Capsule, 100 MG, Oral, 14, 1, BID, 7 Stop metFORMIN HCl ER Tablet Extended Release 24 Hour, 750 MG, Oral, 60, 1, BID, 30 Stop metFORMIN HCl ER Tablet Extended Release 24 Hour, 750 MG, Oral, 60, 1, BID, 30 Stop metFORMIN HCl ER Tablet Extended Release 24 Hour, 750 MG, Oral, 60, 1, BID, 30 Stop metFORMIN HCl ER Tablet Extended Release 24 Hour, 750 MG, Oral, 60, 1, BID, 30 Stop metFORMIN HCl ER Tablet Extended Release 24 Hour, 750 MG, Oral, 60, 1, BID, 30 Stop metFORMIN HCl ER Tablet Extended Release 24 Hour, 750 MG, Oral, 60, 1, BID, 30 Stop metFORMIN HCl ER Tablet Extended Release 24 Hour, 750 MG, Oral, 60, 1, BID, 30 Stop Lantus Solostar U-100 Insulin Unit(s), 100 unit/mL (3 mL), SQ, 10, 35, QHS, 30 Stop PEN NEEDLE NEEDLE, DISPOSABLE, 31 gauge x 1/4 , MISCELLANEOUS, 100, 1, QD, 90 Stop PEN NEEDLE NEEDLE, DISPOSABLE, 31 gauge x 1/4 , MISCELLANEOUS, 100, 1, QD, 90 Stop PEN NEEDLE NEEDLE, DISPOSABLE, 31 gauge x 1/4 , MISCELLANEOUS, 100, 1, QD, 90 Subjective: * Chief Complaints: * E MR-[facility] * * Date:
--- OUTSIDE RECORDS SUMMARY | 2025-02-08 04:00 | XMS_ITS ---
Author Organization [facility] Address [address] [place] [address] Care Team Providers Care Bass Viol Repairer Name Role Phone Migration, Provider Unavailable Unavailable Allergies Allergen (clinical drug ingredient) Drug/Non Drug Allergy documented on EMR Reaction Allergy Type Onset Date Status Penicillin other Drug Allergy 08/01/2017 Activ e REASON FOR VISIT EMR-[facility] Social History Social History Additional Details Category Social Info Options Details Migrated Social History Migrated Social History Alcohol history:Currently does not drink , Diet:Regular diet , Drinks Coffee/Tea:1 cup per day , Education level:College Graduate , Employment:Currently unemployed , Has the patient ever used illegal drugs?:Has never used illegal drugs , Has the patient used cocaine?:No , Has the patient used marijuana?:No , High Risk Lifestyle:No , Living arrangements:House , Marital status:Single , Number of adults in household:4 , Number of children:2 , Number of children in household:2 , Physical Activity:Minimal exercise , Sexual History:Monogamous , Tobacco history:Never smoker Encounters Encounter Location Date Provider Diagnosis [facility] [address] [place] [address] 02/08/2025 Provider Migration Plan Of Treatment No Information Progress Notes * Rosey URENA EDOB:[birth year] (44 yo F)Acc No.[id number]:02/08/2025 Patient: Rosey NANCE :1980 A ge:44 Y S ex:Female Phone: Address:[address], [place], [address] Subjective: * Chief Complaints: * E MR-S[facility] * Surgical History: * Family History: F ather: Cancer. M other: Diabetes, H ypertension. * Social History: M igrated Social History: M igrated Social History: Alcohol history:Currently does not drink,Diet:Regular diet,Drinks Coffee/Tea:1 cup per day,Education level:College Graduate,Employment:Currently unemployed,Has the patient ever used illegal drugs?:Has never used illegal drugs,Has the patient used cocaine?:No,Has the patient used marijuana?:No,High Risk Lifestyle:No,Living arrangements:House,Marital status:Single,Number of adults in household:4,Number of children:2,Number of children in household:2,Physical Activity:Minimal exercise,Sexual History:Monogamous,Tobacco history:Never smoker. * Allergies: P enicillin: other - Allergy - Onset Date 08/01/2017 * * Date:
--- NOTE | 2025-06-22 09:38 | A.OFFVIS_ITS ---
Intake Visit Reasons: PO-Rt Thumb Trigger 06/08/25 Intake Note: Rosey is a 44 year old right hand dominant female who presents today for a Post-Operative Visit status post Right Trigger Thumb Release performed by Dr. Del Rio on 06/08/25. States locking of finger has resolved and is working on her ROM. She has a little swelling and its making it hard to make a full close fist. Sutures removed and steri strips applied. Allergies No Known Allergies Allergy (Verified 06/22/25 09:48) HPI HPI PO-Rt Thumb Trigger 06/08/25: Details: Rosey is a 44 year old right hand dominant female who presents today for a Post-Operative Visit status post Right Trigger Thumb Release performed by Dr. Del Rio on 06/08/25. States locking of finger has resolved and is working on her ROM. She has a little swelling and its making it hard to make a full close fist. Denies redness, discharge. Normal sensation to the tip of the right thumb. Sutures removed and steri strips applied prior to being seen by me. 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 Neuro: Normal sensation of the tips of all digits of the right hand at this time Vascular: Cap refill brisk Pain: Some tenderness to palpation noted of the incision site over the A1 gonzalez of the right thumb Discomfort with range of motion of the right thumb, primarily on the dorsal aspect ROM: With encouragement, patient is able to get close to making a closed fist with the right thumb Patient can flex and extend all other digits of the right hand fully and without difficulty Skin: Well approximated and well healing incision site noted over the A1 gonzalez of the right thumb No lacerations or abrasions. General: Some edema noted over the A1 gonzalez of the right thumb No ecchymosis, erythema, or evidence of infection. Psych: Appears grossly normal Affect normal Attitude cooperative Assessment & Plan Assessment & Plan (1) Trigger thumb of right hand: Code(s): M65.311 - Trigger thumb, right thumb Category: Medical Plan 1. Status post right trigger thumb release DOS 05/2022 With good symptom resolution postoperatively Patient appears to be recovering well postoperatively Patient is educated about the typical recovery course No under water times one-week, 2 lb weight limit x2 weeks At this time, I feel OT referral is warranted for this patient as she is experiencing significant stiffness of the right thumb OT referral placed at this time Patient is educated and worrisome signs and symptoms, and should call us if they experience any of these, including but not limited to redness, swelling, increased pain, and discharge Patient understands this and is amenable to this plan Follow-up in 4-6 weeks for [id number] check, sooner with any acute concerns Orders: Orders OT Evaluation and Treatment 06/22/25 M65.311 - Trigger thumb, right thumb Coding Level of Care Code Global (66253) Diagnoses Trigger thumb of right hand M65.311
--- OUTSIDE RECORDS SUMMARY | 2025-06-22 10:50 | XMS_ITS | Encounter Summary ---
Author Organization [employer] Address [address] [facility] 7 [place] [address] Care Team Providers Care Proof Press Operator Name Role Phone Aria Cárdenas Primary Care Provider Kristin Gallego MD Primary Care Provide r Marisol Helton PharmD Unavailable [phone] Encounter Details Date Type Department Care Team (Latest Contact Info) Description 11/03/2019 Abstract [facility] CONVERSIONS Dental, Provider, DDS Social History [...] on filedocumented in this encounter Care Teams Proof Press Operator Relationship Specialty Start Date End Date Aria Cárdenas FNP PCP - General Family Medicine 02/21/22 01/31/23 Kirstin Zavaleta MD [address] [place], [place] [phone] PCP - General Internal Medicine 09/24/23 Marisol Helton, PharmD [address] [place], [place] [phone] Pharmacist Internal Medicine 03/03/24 documented as of this encounter
--- OUTSIDE RECORDS SUMMARY | 2025-06-22 10:50 | XMS_ITS | Encounter Summary ---
Author Organization [employer] Address [address] [facility] [address] [place] [address] Care Team Providers Care Finisher Accordion Name Role Phone Aria Cárdenas Primary Care Provider Kristin Gallego MD Primary Care Provide r Marisol Helton PharmD Unavailable [phone] Encounter Details Date Type Department Care Team (Latest Contact Info) Description 12/22/2020 Abstract [facility] CONVERSIONS Dental, Provider, DDS Social History Tobacco [...] on filedocumented in this encounter Care Teams Finisher Accordion Relationship Specialty Start Date End Date Aria Cárdenas FNP PCP - General Family Medicine 02/21/22 01/31/23 Kristin Zavaleta MD [address] [place], [place] [phone] PCP - General Internal Medicine 09/24/23 Marisol Helton, PharmD [address] [place], [place] [phone] Pharmacist Internal Medicine 03/03/24 documented as of this encounter
--- OUTSIDE RECORDS SUMMARY | 2025-06-22 10:50 | XMS_ITS | Encounter Summary ---
Author Organization [employer] Address [address] [facility] 7 [place] [address] Care Team Providers Care Operations Section Manager Name Role Phone Aria Cárdenas Primary Care Provider Kristin Gallego MD Primary Care Provide r Marisol Helton PharmD Unavailable [phone] Encounter Details Date Type Department Care Team (Latest Contact Info) Description 05/22/2022 Abstract [facility] CONVERSIONS Dental, Provider, DDS Social History [...] on filedocumented in this encounter Care Teams Operations Section Manager Relationship Specialty Start Date End Date Aria Cárdenas FNP PCP - General Family Medicine 02/21/22 01/31/23 Kristin Zavaleta MD [address] [place], [place] [phone] PCP - General Internal Medicine 09/24/23 Marisol Helton, PharmD [address] [place], [place] [phone] Pharmacist Internal Medicine 03/03/24 documented as of this encounter
--- OUTSIDE RECORDS SUMMARY | 2025-06-22 10:51 | XMS_ITS | Clinical Summary ---
Author Organization 175 [facility] Address 175 [place] [address] Phone Care Team Providers Care Sausage Mixer Name Role Phone Kristin Zavaleta MD Primary [...] Care Team (Late st Contact Info) Description 01/21/2026 8:30 AM EDT Office Visit Orthopedic Surgery - [place] [address] 175 [facility] [address] [place] [phone] Mohamud Shannon, [address] [phone] Health Maintenance Due Date Last Done Comments Breast Cancer Screening 1980 Colorectal Cancer Screening: Colonoscopy 1978 Diabetes: Annual Foot Exam 1988 Diabetes: Annual Retina Eye Exam 1988 Pneumococcal Vaccine: Pediatrics (0 to 5 Years) and At-Risk Patients (6 to 49 Years) (1 of 2 - PCV) 1997 Cervical Cancer Screening: P ap Smear 1999 Depression Screening 08/20/2024 Diabetes: Annual Urine Albumin-Creatinine Ratio (uACR) 12/04/2024 Social Influencers of Health Screening 12/04/2024 COVID-19 Vaccine (2023-2 5 season) 2025 Influenza Vaccine (#1) 2025 , 06/09/2020, 10/08/2019 Diabetes: Blood Sugar Contro l [...] topic Insurance MEDICAID - [place] Care Teams Sausage Mixer Relationship Specialty Start Date End Date Kristin Zavaleta MD [address] [place] [phone] PCP - General Internal Medicine 12/03/24
--- OUTSIDE RECORDS SUMMARY | 2025-06-22 10:51 | XMS_ITS | Clinical Summary ---
Author Organization [employer] Address 75 [facility] 7t [place] [address] Care Team Providers Care Project Financial Analyst Name Role Phone Kristin Zavaleta MD Primary Care Provide r Marisol Helton PharmD Unavailable Allergies No known active allergies Medications Sodium Fluoride (PreviDent 5000 Booster Plus) 1.1 % paste Apply 1 application to teeth 2 times daily. 112 g 3 03/29/20 23 Active Blood Glucose Monitoring Suppl (FreeStyle Lite) w/Device kitIndications:T ype 2 diabetes mellitus with other specified complication, without long-term current use of insulin ([facility]) 1 each 3 times daily. 1 kit 02/29/20 24 Active Alcohol Swabs (Alcohol Prep) 70 % pads USE TWICE DAILY BEFORE BREAKFAST AND ONCE 2 HOURS AFTER A MEAL 100 each 5 03/12/20 24 Active glucose (Glutose) 40 % gel oral gelIndications:T ype 2 diabetes mellitus with other specified complication, without long-term current use of insulin ([facility]) Take 15 g by mouth if needed for low blood sugar. 45 g 11 04/03/20 24 Active atorvastatin (Lipitor) 40 MG tabletIndication s:Dyslipidemia Take 1 tablet (40 mg) by mouth Once per day. 90 tablet 3 06/04/20 24 Active dapagliflozin (Farxiga) 10 MGIndications:Ty pe 2 diabetes mellitus with other specified complication, without long-term current use of insulin (HCC) TAKE 1 TABLET BY MOUTH EVERY MORNING 90 tablet 3 07/29/20 24 Active escitalopram (Lexapro) 20 MG tablet TAKE 1 TABLET BY MOUTH EVERY MORNING FOR MOOD OR ANXIETY 10/01/19 25 Active glipiZIDE (Glucotrol) 5 MG tabletIndication s:Type 2 diabetes mellitus with other specified complication, without long-term current use of insulin ([facility]) TAKE 1 TABLET BY MOUTH TWICE DAILY BEFORE BREAKFAST AND DINNER NEEDED. Do not take if skipping meal. 270 tablet 3 10/17/19 25 Active Ascorbic Acid (vitamin C) 250 MG tabletIndication s:Vitamin C deficiency TAKE 1 TABLET BY MOUTH EVERY OTHER DAY IN THE MORNING WITH IRON 45 tablet 1 10/22/19 25 Active cholecalciferol (Vitamin D-3) 10 MCG (400 UNIT) tabletIndication s:Vitamin D deficiency TAKE 2 TABLETS ONCE DAILY IN THE MORNING 180 tablet 1 12/19/19 25 Active losartan (Cozaar) 100 MG tablet TAKE 1 TABLET BY MOUTH EVERY MORNING 90 tablet 1 12/19/19 25 Active Ferrous Sulfate (iron) 325 (65 Fe) MG tabletIndication s:Iron deficiency anemia due to chronic blood loss TAKE 1 TABLET BY MOUTH EVERY OTHER DAY IN THE MORNING 45 tablet 1 12/19/19 25 Active metFORMIN (Glucophage) 500 MG tabletIndication s:Type 2 diabetes mellitus with other specified complication, without long-term current use of insulin ([facility]) TAKE 1 TABLET TWICE DAILY IN THE MORNING AND IN THE EVENING WITH MEALS 180 tablet 1 12/19/19 25 Active metoprolol succinate XL (Toprol XL) 25 MG 24 hr tabletIndication s:Essential hypertension Take 1 tablet (25 mg) by mouth Once per day. Do not crush or chew. 90 tablet 1 12/27/19 25 Active insulin glargine (Lantus SoloStar) 100 UNIT/ML penIndications:T ype 2 diabetes mellitus with other specified complication, without long-term current use of insulin ([facility]) INJECT 16 UNITS SUBCUTANEOUSLY ONCE DAILY 15 mL 3 12/27/19 25 Active B-D UF III MINI PEN NEEDLES 31G X 5 MM miscIndications: Type 2 diabetes mellitus with other specified complication, without long-term current use of insulin ([facility]) Use as directed with insulin administration once daily 100 each 3 12/27/19 25 Active naproxen (Naprosyn) 500 MG tablet Take 1 tablet (500 mg) by mouth if needed in the morning and at bedtime for mild pain. 30 tablet 1 01/01/20 25 026 Active Diclofenac Sodium 1 % gel Apply 2 g topically if needed in the morning, at noon, in the evening, and at bedtime (pain). 150 g 3 01/01/20 25 Active TRUEplus Lancets 33G miscIndications: Type 2 diabetes mellitus with other specified complication, without long-term current use of insulin (HCC) USE DIRECTED TO TEST BLOOD SUGAR THREE TIMES DAILY 100 each 11 03/04/20 25 Active glucose blood (FREESTYLE LITE) test stripIndications :Type 2 diabetes mellitus with other specified complication, without long-term current use of insulin (HCC) USE DIRECTED TO TEST BLOOD SUGAR THREE TIMES DAILY 100 strip 3 03/31/20 25 Active levothyroxine (Synthroid, Levoxyl) 50 MCG tablet TAKE 1 TABLET BY MOUTH EVERY MORNING ON AN EMPTY STOMACH 30 MINUTES BEFORE BREAKFAST 90 tablet 04/30/20 25 Active Active Problems Problem Noted Date Diagnosed Date [...] diabetes mellitus 07/17/2023 07/17/2023 Essential hypertension 07/17/2023 3 Assessment & Plan (02/04/2025 11:17 AM EDT): [...] Encounters Date Type Department Care Team Description 06/22/2025 Refill [facility] [address] [place] [address] Kristin Zavaleta MD Type 2 diabetes mellitus with other specified complication, without long-term current use of insulin ([facility]); Vitamin C deficiency; Vitamin D deficiency 05/18/2025 Telephone [facility] [address] [place] [address] Kristin Zavaleta MD 04/30/2025 Refill [facility] [address] [place], [place] [phone] Kristin Zavaleta MD 04/08/2025 Telephone [facility] [address] [place] [address] Kristin Zavaleta MD 03/30/2025 Refill [facility] [address] [place] [address] Marisol Helton, PharmD Type 2 diabetes mellitus with other specified complication, without long-term current use of insulin ([facility]) from Last 3 Months Immunizations Immunization Administration [...] 03/28/2025 025, 10/15/2024, 06/03/2024, Additional history exists COVID-19 [...] AM EDT) Hepatitis C Antibody Nonreactive Nonreactive [facility] Comment:Antibodies to HCV no t detected; does not exclude early acuteHCV infection. Blood Venous blood specimen / Unknown 01/06/2025 8:38 AM EDT 01/06/2025 11:37 AM EDT us Kristin Sims MD LAB BLOOD ORDERABLES Final Result Performing Organization Address [facility]/ZIP Co de Phone Number [facility] [address] [place] [phone] * HIV-1/2 Antigen and Antibodies, Fourth Generation, with Reflexes (01/06/2025 8:38 AM EDT) HIV AB/AG Nonreactive Nonreactive [facility] Comment:HIV-1 p24 Ag and/or HIV-1/HIV-2 Ab not detected.A test result that is nonreactive does not exclude thepossibility of exposure to or infection with HIV-1 and/orHIV-2. Nonreactive results in this assay for individualswith prior exposure to HIV-1 and/or HIV-2 may be due toantigen and antibody levels that are below the limit ofdetection of this assay.The [employer] HIV Ag/Ab Combo assay result andsupplemental assay results should be interpreted inconjunction with the patient's clinical presentation,history and other laboratory results. If the results areinconsistent with clinical evidence, additional testing issuggested to confirm the result. Blood Venous blood specimen / Unknown 01/06/2025 8:38 AM EDT 01/06/2025 11:37 AM EDT us Kristin Sims MD LAB BLOOD ORDERABLES Final Result Performing Organization Address City/[facility]/ZIP Co de Phone Number [facility] [address] [place] [phone] * Lipid Panel, Standard (01/06/2025 8:30 AM EDT) Triglycerides 39 <150 mg/dL [facility] Comment:Desirable Triglyceri de: less than 150 mg/dLBorderline High Triglyceride 150-199 mg/dLHigh Triglyceride: 200-499 mg/dLVery High Triglyceride: greater than or equal to 5OO mg/dL Cholesterol 141 <200 mg/dL [facility] Comment:Desirable Cholestero l: less than 200 mg/dLBorderline High Cholesterol: 200-239 mg/dLHigh Cholesterol: greater than 239 mg/dL LDL Cholesterol Calculated 81 <100 mg/dL [facility] Comment:Desirable LDL: less than 100 mg/dLNear Optimal/Above Optimal LDL: 110- 129 mg/dLBorderline High LDL: 130-159 mg/dLHigh LDL: 160-189 mg/dLVery High LDL: greater than or equal to 190 mg/dL HDL Cholesterol 53 >40 mg/dL [facility] Comment:Desirable HDL: great er than 40 mg/dL Note: This HDL assay may give artificially low results in patients with liver disease. Blood Venous blood specimen / Unknown 01/06/2025 8:30 AM EDT 01/06/2025 11:37 AM EDT us Kristin Sims MD LAB BLOOD ORDERABLES Final Result [facility] [address] [place] [phone] * BI Mammogram Screening Tomosynthesis Bilateral (01/05/2025 12:30 PM EDT) Anatomical Region Laterality Modality Breast Bilateral Mammography 01/05/2025 12:3 0 PM EDT Narrative 01/12/2025 8:38 PM EDT [facility] [address] [place] [address] Mammography Report Signed Patient: Rosey Osborne#: [id number] : 1980 Acct:[id number] Age/Sex: 44 / F ADM Date: 01/05/25 Loc: HO.MAMMO Attending Dr: Kristin Sims MD Ordering Physician: Kristin Zavaleta MD Results: 2Benign Findings Date of Service: 01/05/25 Follow Up: 1 Year From Orig inal Mammogram Procedure(s): MM tomosynthesis screening BI Accession Number(s): [id number] cc: Kristin Zavaleta MD EXAMINATION: MM SCREENING [...] OV> 01/12/252034 DD/ 1230 TD/TT: 01/05/25 1246 Waitstaff Captain: Procedure Note Donotuseinterpreter, Image - 01/12/20[facility] [address] [place] [address] Mammography Report Signed Patient: Rosey Osborne R#: [id number] : 1980Acct:[id number] Age/Sex: 44 / FADM Date: 01/05/25 Loc: HO.MAMMO Attending Dr: Kristin Sims MD Ordering Physician: Kristin Zavaleta MDResults: 2Benign Findings Date of Service: 01/05/25Follow Up: 1 Year From Orig inal Mammogram Procedure(s): MM tomosynthesis screening BI Accession Number(s): [id number] cc: Kristin Zavaleta MD EXAMINATION: MM SCREENING [...] Ethel Camacho DO 01/12/2025 08:35 PM EDT RP Dictated By: Ethel Camacho DO Signed By: <Electronically signed by Ethel Camacho DO in OV> 01/12/252034 DD/ 1230 TD/TT: 01/05/25 1246 Waitstaff Captain: Kristin Sims MD IMG BI PROCEDURES Shaka mark Result - Final * (ABNORMAL) POCT A1C (12/26/2024 9:18 AM EDT) Hemoglobin A1C 8.0(A) 4.0 - 6.0 % QC Media Lot # [id number] Lot# Expiration Date ,816 Blood 12/26/2024 9:18 AM EDT Kristin Sims MD POINT OF CARE TEST EN TER/EDIT ORDERABLES Final Result * Image-Guided Pap with Age-Based Screening Protocols (11/13/2022 11:40 AM EDT) Comment [facility] Comment: This order for age-based cervical cancer and STI screening follows ACOG guidelines(PB 168, 140, PZM406). See individual assays for performing site location. Clinical Information: None given [facility] LMP: NONE GIVEN [email or web address] Prev. PAP: NONE GIVEN [email or web address] Prev. BX: NO [email or web address] SOURCE: None given [facility] Statement Of Adequacy: [facility] Comment: Satisfactory for evaluation. Endocervical/transformation zone component present. Interpretation/ Result: Negative for intraepithelial lesion or malignancy. [facility] [place] [facility] COMMENT: [facility] Comment: This case could not be evaluated with computer assisted technology. The slide was manually screened according to routine procedures. Cytotechnologis t: [facility] Comment: MXD, CT (ASCP) CT screening location: [place] [address] Review Cytotechnologis t: [facility] Comment: GSG, CT(ASCP) CT screening location: [place] [address] (Always Message) [facility] Comment: EXPLANATORY NOTE: The Pap is a [...] HPV nRNA E6/E7 Not Detected Not Detected [facility] Comment: Methodology: Inspector And Tester-Mediated Amplification This assay detects E6/E7 viral messenger RNA (mRNA) from 14 high-risk HPV types (16,18,31,33,35,39,45,51,52,56,58,59,66,68). Cervical sources are required for HPV testing. If a vaginal source from a patient who has had a total hysterectomy with removal of cervix was submitted, please contact the testing laboratory for alternative testing options. For additional information, please refer to http://education.CMOSIS nv/faq/YGF030t2 (This link if provided for information/ educational purposes only.) Cytology specimen container (physical object) 11/13/2022 11:40 AM EDT 11/14/2022 9:49 AM EDT us Prerna Meehan CN LAB BLOOD ORDERABLES Corrina l Result [facility] [address] [facility], [place] [address] [facility] [address] [place] [address] * MICROALBUMIN, RANDOM (09/17/2019 9:19 AM EST) CREATININE, RANDOM URINE 85.34 MG/DL [facility] MICALB/CRE RATIO RANDOM URINE 36.3 ug/mg cr [facility] Comment: Albumin/Creatinine Ratio Reference Ranges: Normal: < 30 ug/mg creatinine Microalbuminuria: 30 - 300 ug/mg creatinine Clinical Albuminuria: > 300 ug/mg creatinine MICROALBUMIN, RANDOM URINE 31.0 MG/L [facility] 09/17/2019 9:19 AM EST us Mary Caballero W[employer] BUSINESS SEGMENT LEADER HISTORICAL/NON ORDERABLE LA BS Final Result [facility] [address] from Last 3 Months or Most Recently Relevant to Health Maintenance [place] [address] [place] [address] [facility] AD[facility] Care Teams Project Financial Analyst Relationship Specialty Start Date End Date Kristin Zavaleta MD [address] [place] [address] PCP - General Internal Medicine 09/24/23 Marisol Helton PharmD [address] [place] [address] Pharmacist Internal Medicine 03/03/24
--- OUTSIDE RECORDS SUMMARY | 2025-06-22 10:51 | XMS_ITS | Encounter Summary ---
Author Organization [employer] Address [address] [facility] 7t [place] [address] Care Team Providers Care Talent Advisor Name Role Phone Kristin Zavaleta MD Primary Care Provide r Marisol Helton PharmD Unavailable Encounter Details Date Type Department Care Team (Late st Contact Info) Description 01/08/2025 Orders Only [facility] [address] [place], [place] [phone] Kristin Zavaleta MD [address] [place], [place] [phone] Social History Tobacco Use Types Packs/Day Years [...] on filedocumented in this encounter Care Teams Talent Advisor Relationship Specialty Start Date End Date Kristin Zavaleta MD [address] [place] [address] PCP - General Internal Medicine 09/24/23 GeremiassMarisol Mckeon, PharmD [address] [place] [address] Pharmacist Internal Medicine 03/03/24 documented as of this encounter
--- OUTSIDE RECORDS SUMMARY | 2025-06-22 10:51 | XMS_ITS | Patient Health Record ---
Author Organization [facility] Address [address] [place] [address] Care Team Providers Care Permit Specialist Name Role Phone Migration, Provider Unavailable Unavailable [...] Status Risk Notes Problem Iron deficiency anemia (89936582) Other iron deficiency anemias (D50.8) 12/28/19 18 Active confirmed Problem Iron deficiency anemia (63909747) Iron deficiency anemia, unspecified (D50.9) 09/25/19 18 Active confirmed Problem Hypothyroidism (68443567) Hypothyroidism, unspecified (E03.9) 09/25/19 18 Active confirmed Problem Hyperglycemia due to type 2 diabetes mellitus (659290469551820) Type 2 diabetes mellitus with hyperglycemia (E11.65) 09/11/19 18 Active confirmed Problem Type 2 diabetes mellitus with other specified complication (E11.69) 09/25/19 18 Active confirmed Problem Iron deficiency (39709751) Iron deficiency (E61.1) 09/11/19 18 Active confirmed Problem Urinary tract infectious disease (disorder) (98120492) Urinary tract infection, site not specified (N39.0) 12/28/19 18 Active confirmed Problem Adult health examination (125816651) Encounter for general adult medical examination without abnormal findings (Z00.00) 08/01/20 17 Active confirmed Problem Type 2 diabetes mellitus with mild nonproliferative diabetic retinopathy with macular edema, unspecified eye (E11.3219) 09/25/19 18 Active confirmed Problem Normal body mass index (72685499) Body mass index (BMI) 22.0-22.9, adult (Z68.22) 09/25/19 18 Active confirmed Problem Normal body mass index (95378540) Body mass index (BMI) 21.0-21.9, adult (Z68.21) 09/11/19 18 Active confirmed Encounters Encounter Location Date Provider Diagnosis [facility] [address] [place] [address] 02/07/2025 Provider Migration [facility] Kyle [address] [place] [address] 02/08/2025 Provider Migration Plan Of Treatment No Information Insurance Providers Payer Name Payer Address Payer Phone Subscriber Number Group Number Insured Name Patient Relationship to Insured Coverage Start Date Coverage End Date [facility] [address] [address] [place] [address] [id number] Rosey Urena Self - patient is the insured Medical (General) History Surgical History Surgery Date(Month/Year)
--- OUTSIDE RECORDS SUMMARY | 2025-06-22 10:52 | XMS_ITS | Encounter Summary ---
Author Organization [employer] Address [address] [place] [address] Care Team Providers Care Laborer/Grade Check Name Role Phone Kristin Zavaleta MD Primary Care Provide r Marisol Helton PharmD Unavailable [phone] Reason for Visit * Reason Comments Med Refill Encounter Details Date Type Department Care Team (Late st Contact Info) Description 06/22/2025 Refill [facility] [address] [place], [place] [phone] Kristin Zavaleta MD [address] [place], [place] [phone] Type 2 diabetes mellitus with other specified complication, without long-term current use of insulin (HCC); Vitamin C deficiency; Vitamin D deficiency Social History Tobacco Use Types Packs/Day Years Used Date Smoking Tobacco: Never Passive Smoke Exposure: Never Smokeless Tobacco: Never Alcohol Use Standard Drinks/Week Comments Never 0 [...] once per day Blood Pressure No Geremiass-Marisol Merritt, PharmD Blood Pressure < 140/90 Blood Pressure 128/74(2024 10:19 AM EDT) No Geremiass-Amy Merrittsa, PharmD Take your medication every day Lifestyle No Geremiass-Amy Merrittsa, PharmD Hemoglobin A1c < 7 Result Component 8(12/26/2024 9:18 AM EDT) No Piers-Gambl arias, Marisol, PharmD documented as of this encounter Visit Diagnoses Diagnosis Type 2 diabetes mellitus with other specified complication, without long-term current use of insulin (HCC) Vitamin C deficiency Ascorbic acid deficiency Vitamin D deficiency documented in this encounter Additional Health Concerns Assessment Noted Time PHQ-9 Depression Total Score: 0 02/05/20 25 10:21 AM EDT documented as of this encounter Care Teams Laborer/Grade Check Relationship Specialty Start Date End Date Kristin Zavaleta MD [address] [place] [address] PCP - General Internal Medicine 09/24/23 Marisol Helton, [place] [address] [place] [address] Pharmacist Internal Medicine 03/03/24 documented as of this encounter
== END 2025-06-22 10:00 | disposition home or self-care (01) ==
LOC: HO.HOS 09:32
PROVIDERS: PCP Internal Medicine
DX: M65.311 Trigger thumb, right thumb (principal)
CPT/HCPCS: 99024

== ENCOUNTER → 2025-06-22 09:31 | Outpatient (BNVA) | payer MEDICAID, SELFPAY | PROVIDERS: PCP Internal Medicine | DX: M65.311 Trigger thumb, right thumb (principal) | CPT/HCPCS: 99212 ==

== ENCOUNTER 2025-07-31 08:42 | Outpatient (AMB) | payer MEDICAID, SELFPAY ==
--- NOTE | 2025-07-31 08:52 | A.OFFVIS_ITS ---
Intake Visit Reasons: PO-ROM check/ Rt Thumb Trigger 06/08/25 Intake Note: Rosey is a 44 year old right hand dominant female who presents today for a ROM Check status post Right Trigger Thumb Release performed by Dr. Del Rio on 06/08/25. At her last visit she was advised to avoid underwater activities for 1 week and to remain at a 2 lb weight limit for 2 weeks. She was referred to occupational therapy due to significant stiffness of the right thumb. Today patient states she is working with O.T and has improved. She continues to have limited ROM but better and also has a little sensitivity especially when opening up a plastic bottle cap. Molecular Technologist Required: Yes Molecular Technologist Services: Molecular Technologist Present Molecular Technologist Name: Caroline HINDS/PAUL Allergies No Known Allergies Allergy (Verified 07/31/25 09:07) HPI HPI PO-ROM check/ Rt Thumb Trigger 06/08/25: Details: Rosey is a 44 year old right hand dominant female who presents today for a ROM Check status post Right Trigger Thumb Release performed by Dr. Del Rio on 06/08/25. At her last visit she was advised to avoid underwater activities for 1 week and to remain at a 2 lb weight limit for 2 weeks. She was referred to occupational therapy due to significant stiffness of the right thumb. Today patient states she is working with O.T and has improved. She continues to have somewhat limited ROM but better and also has a little sensitivity especially when opening up a plastic bottle cap. Patient states that her symptoms have been gradually improving since previous evaluation, and overall she is happy with where she is at right now. 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 Neuro: Normal sensation of the tips of all digits of the right hand at this time Vascular: Cap refill brisk Pain: Very mild tenderness to palpation noted of the incision site over the A1 gonzalez of the right thumb No further Discomfort with range of motion of the right thumb, primarily on the dorsal aspect ROM: patient is able to get close to making a closed fist with the right thumb fully and without difficulty Patient is able to flex the right thumb to touch the base of the right small finger and extend fully without difficulty Patient can flex and extend all other digits of the right hand fully and without difficulty Skin: Well approximated and well healing incision site noted over the A1 gonzalez of the right thumb No lacerations or abrasions. General: No further edema noted over the A1 gonzalez of the right thumb No ecchymosis, erythema, or evidence of infection. Psych: Appears grossly normal Affect normal Attitude cooperative Assessment & Plan Assessment & Plan (1) Trigger thumb of right hand: Code(s): M65.311 - Trigger thumb, right thumb Category: Medical Plan 1. Status post right trigger thumb release DOS 05/2022 With good symptom resolution postoperatively Patient appears to be recovering well postoperatively Patient is educated about the typical recovery course No further active restrictions at this time Continue OT, as I feel this is benefited her tremendously, however I do not feel that she needs any further appointments after her last scheduled appointment Patient is advised on continuing to massage the incision site to aid with hypersensitivity Patient is educated and worrisome signs and symptoms, and should call us if they experience any of these, including but not limited to redness, swelling, increased pain, and discharge Patient understands this and is amenable to this plan Follow-up as needed with any acute concerns Coding Level of Care Code Global (80841) Diagnoses Trigger thumb of right hand M65.311
== END 2025-07-31 09:21 | disposition home or self-care (01) ==
LOC: HO.HOS 08:42
PROVIDERS: PCP Internal Medicine
DX: M65.311 Trigger thumb, right thumb (principal)
CPT/HCPCS: 99024

== ENCOUNTER → 2025-07-31 08:42 | Outpatient (BNVA) | payer MEDICAID, SELFPAY | PROVIDERS: PCP Internal Medicine | DX: M65.311 Trigger thumb, right thumb (principal); Z98.890 Other specified postprocedural states | CPT/HCPCS: 99212 ==

== ENCOUNTER 2025-08-12 08:21 | Outpatient (RCR) | payer MEDICAID, SELFPAY ==
--- NOTE | 2025-07-02 10:58 | MHC.OT.EP ---
[facility] Office [address] [facility] [phone] F: [phone] F: [phone] Occupational Therapy Plan of Care Patient Name: Rosey Rivero Date of Evaluation: 07/02/25 Diagnosis: s/p right trigger thumb release Pain Location: Pain in right thumb 0/10 at rest 2/10 with activity Pain Score: 0 Pain Scale Used: Numeric (0 - 10) Aggravating Factors: Opposition, grasping a water bottle or holding cell phone Alleviating Factors: Rest, ice Assessment: Rosey is a 44 y/o female s/p right trigger thumb release done by Dr. Del Rio on 06/08/25, demonstrating appropriate progress at 3.5 weeks post-op. ROM within functional limits for current healing stage. Quick DASH score indicates moderate functional limitation (68.2%). Patient would benefit from continued OT intervention to address ROM, progressive strengthening (per weight restriction timeline), and functional task training to decrease disability and improve return to prior level of function. Frequency and Duration: The patient will be seen 2x/wk for 4 weeks Short Term Goals: Pain free with ADL's/IADLs Thumb ROM to WNL's in all planes End Stapler Goals: Improve R gross grasp to >25# to increase ease with lifting/carrying IND with progression of HEP Return to all fine motor activities without limitation or compensation Quick DASH <25% Treatment Plan: Therapeutic Exercise Therapeutic Activity Home Exercise Program Patient Education ADL Training MHP Joint Mobilization Soft Tissue Mobilization Electronically Signed By: Elisa Valentino MS OTR/L Please Sign and return to therapist. Thank you once again for your referral.
--- NOTE | 2025-08-12 08:46 | MHC.OT.DC ---
[facility] [place] Office [address] [phone] F: [phone] F: [phone] Occupational Therapy Discharge Note Patient Name: Rosey Rivero Provider: Roni Kumar Diagnosis: s/p right trigger thumb release Date of Surgery: 06/08/25 Date of Evaluation: 07/02/25 Date of Discharge: 08/12/25 Treatments to Date: 8 Discharge Status: Achieved Goals Improved Function Independent with HEP Discharge Summary: Rosey is ~8 weeks s/p trigger thumb release and has made excellent progress in OT. Thumb ROM is WNL's, gross grasp strength has improved from 10# to 45#, and Quick DASH score improved from 68% to 6% indicating increased ease with functional tasks. At this time, pt. is IND with home program and pain free with all activity. Thank you for this referral! Electronically Signed By: Elisa Valentino, OTR/L Reviewed/agree with student documentation: Therapist: Please Sign and return to therapist, thank you for your referral.
== END 2025-08-12 08:47 | disposition home or self-care (01) ==
LOC: HO.OTS 08:21
PROVIDERS: PCP Internal Medicine
DX: M65.311 Trigger thumb, right thumb (principal)
CPT/HCPCS: 97110; 97165